=== PATIENT | female | born 1945 | race Caucasian/White ===

== ENCOUNTER → 2017-05-15 | Outpatient (CLI) | payer MEDICARE, OTHER ==
[2017-05-14 14:20] VITALS: BMI 33.9
--- NOTE | 2017-05-15 13:49 | P.HPIM ---
History of Present Illness H&P Date: 05/15/17 Chief Complaint: low back and bilateral leg pain This is a 71-year-old patient referred by Dr. Lakhani for chronic pain in low back with radiation to lateral legs down to ankle, worse on R side. Patient has been taking medications from primary care physician including Tylenol medications with some relief. Patient denies adverse drug effects from medications. Patient also denies new-onset weakness, bowel/bladder incontinence , or any other signs or symptoms of cauda equina syndrome. There are no signs of acute intoxication, and no indications of medication diversion or overuse. Patient notes that pain worsens significantly with walking, and improves with sitting, ice, and heat. Patient has used several types of medications for pain, including NSAIDS and BENZODIAZEPINES. Patient HAS NOT had surgery. Patient HAS had injections previously from Dr. Barba which helped with her pain (epidural injections). Patient HAS NOT had physical therapy recently. In addition to above, 13-point review of systems is also negative for chest pain , shortness of breath, changes in vision, changes in hearing, new onset weakness , abdominal pain, diarrhea, extreme fatigue, malaise, fever, skin changes, homicidal or suicidal ideation, or bowel or bladder incontinence. Vital Signs: Reviewed in EMR Gen: WDWN, AAOx3, NAD HEENT: NCAT, EOMI, hearing grossly normal Pulm: resp unlabored Abd: soft, NT, ND Neck: supple, trachea midline ROM in flexion lumbar spine: reduced with greater restriction ROM in extension lumbar spine: reduced Lumbar paravertebral tenderness: + Facet loading: + bilateral SI joint tenderness: + R side Abdiel's test: + R side Straight leg raise: + RLE at 10 degrees Neuro: CN II-XII grossly intact, muscle strength lower extremities PRESERVED Past Medical History Past Medical History: Osteoarthritis (OA) Additional Past Medical History / Comment(s): hx migraines, diverticulitis, IBS , hx kidney stones, justino cataracts with lens implants History of Any Multi-Drug Resistant Organisms: None Reported Past Surgical History: Adenoidectomy, Cholecystectomy, Hernia Repair, Orthopedic Surgery, Tonsillectomy Additional Past Surgical History / Comment(s): justino knee surgery Past Anesthesia/Blood Transfusion Reactions: Previous Problems w/ Anesthesia, Motion Sickness Additional Past Anesthesia/Blood Transfusion Reaction / Comment(s): "could not wake me up". adopted-no family hx Smoking Status: Former smoker - Past Family History Mother Family Medical History: Unable to Obtain Medications and Allergies Home Medications Medication Instructions Recorded Confirmed Type Cholecalciferol [Vitamin D3] 5,000 unit PO DAILY 05/14/17 05/14/17 History Cholestyramine/Aspartame 4 gm PO DAILY 05/14/17 05/14/17 History [Cholestyramine Light Packet] Krill Oil 500 mg PO DAILY 05/14/17 05/14/17 History Nabumetone [Relafen] 500 mg PO BID 05/14/17 05/14/17 History Allergies Allergy/AdvReac Type Severity Reaction Status Date / Time quinapril [From Accupril] Allergy throat Verified 05/14/17 14:03 swelled rofecoxib [From Vioxx] Allergy kidneys Verified 05/14/17 14:04 shut down Sulfa (Sulfonamide Allergy Rash/Hives Verified 05/14/17 14:03 Antibiotics) Results Comments: MRI lumbar spine without contrast dated 05/15/2016 demonstrates at the L2-L3 level there is mild disc bulging and mild posterior facet arthropathy with mild bilateral foraminal stenosis without substantial spinal canal stenosis. At the L3-L4 level there is mild disc bulging mild posterior facet arthropathy with mild to moderate bilateral foraminal stenosis. The L4-L5 level, there is uncovering of a minimal central right disc protrusion with annular tear mild disc bulging with moderate posterior facet arthropathy. There is mild to moderate foraminal stenosis. At L5-S1 level there is a minimal central annular tear with mild to moderate posterior facet hypertrophy. There is no spinal stenosis. Assessment and Plan (1) Lumbar disc herniation Status: Acute (2) Neural foraminal stenosis of lumbar spine Status: Acute (3) Chronic pain syndrome Status: Acute Plan: 1. Explanation: Opioid and psychological risk scores were reviewed. Diagnoses , prognoses, and multiple treatment options including but not limited to physical therapy, interventional therapies, adjuvant medical therapies, narcotic medication therapies, and surgery were discussed with the patient and all questions were answered to the patient's satisfaction. 2. Opioid agreement: no opioids prescribed today 3. Counseling: The patient was counseled extensively on BODY MASS INDEX, EXERCISE. Specifically, the patient was instructed regarding the importance of smoking cessation, weight control, and exercise in the context of both chronic pain and overall health. 4. Procedures: LESI series 5. Consultations: none 6. Investigations: none 7. Medications: none prescribed 8. Disposition: f/u for procedure as scheduled PQRS measures: 1-Patient's medications are documented in the chart. 2-Tobacco use is negative 3-Patient has not had a pneumococcal vaccine. 4-Advanced care planning discussed, patient unable to give. 5-Opioid contract NOT signed with the patient. 6-Pain positive, follow-up visit or procedure scheduled 7-Patient's blood pressure measured and documented, and patient will follow up with the primary care due to hypertension. 8-Patient's weight was measured, and body mass index ABOVE the normal limits, and counseling was done. Patient instructed to follow up with PCP. 9-Patient WAS NOT identified as an unhealthy alcohol user. Time with Patient: Greater than 30
== END | disposition home or self-care (01) ==
LOC: PNWHC3 13:02
PROVIDERS: ATTEND Anesthesiology
DX: M99.73 Connective tissue and disc stenosis of intervertebral foramina of lumbar region (principal); M51.26 Other intervertebral disc displacement, lumbar region; M19.90 Unspecified osteoarthritis, unspecified site; G89.4 Chronic pain syndrome; Z87.891 Personal history of nicotine dependence; Z79.899 Other long term (current) drug therapy; Z79.1 Long term (current) use of non-steroidal anti-inflammatories (NSAID); Z88.2 Allergy status to sulfonamides; Z88.8 Allergy status to other drugs, medicaments and biological substances
CPT/HCPCS: 99211

== ENCOUNTER → 2017-06-07 | Outpatient (CLI) | payer MEDICARE, OTHER ==
--- NOTE | 2017-06-07 14:02 | US ---
EXAMINATION TYPE: US venous doppler duplex LE LT DATE OF EXAM: 06/07/2017 1:34 PM COMPARISON: NONE CLINICAL HISTORY: 71-year-old female LLE R60.0 Edema, M79.662 leg pain. Pain and swelling with skin r edness superficial varicose veins above knee to lower calf left leg and right medial calf for short s egment. SIDE PERFORMED: Left, Limited right. TECHNIQUE: The lower extremity deep venous system is examined utilizing real time linear array sonog cortney with graded compression, doppler sonography and color-flow sonography. FINDINGS: VESSELS IMAGED: Common Femoral Vein Deep Femoral Vein Greater Saphenous Vein * Femoral Vein Popliteal Vein Small Saphenous Vein * Proximal Calf Veins (* superficial vessels) Left Leg: Negative for DVT. However, the exam is positive for Superficial Venous Thrombosis involving the greater saphenous vein from above the knee to lower mid calf. The thrombosed superficial vein is prominently ectatic. Right leg: Short segment of Superficial Venous Thrombosis is also noted along the right medial calf at patient's additional site of pain and swelling a varicosity. IMPRESSION: 1. No evidence for DVT within the left lower extremity imaged from the groin to the proximal calf. 2. However, the exam is positive for SVT involving the greater saphenous vein from above the knee to the mid calf 3. Limited scanning of the medial right calf at the site of patient pain shows additional SVT of a va ricosity.
== END | disposition home or self-care (01) ==
LOC: RADUSWWP 12:53
PROVIDERS: ATTEND Family Medicine
DX: I47.1 Supraventricular tachycardia (principal); I87.8 Other specified disorders of veins; M79.662 Pain in left lower leg; R60.0 Localized edema

== ENCOUNTER 2017-06-13 07:32 | Day surgery (SDC) | payer MEDICARE, OTHER ==
[2017-06-08 12:51] VITALS: BMI 33.9
[~2017-06-13 07:32] MED LIST: LACTATED RINGERS 1,000 ML IV SCH
[2017-06-13 08:02] VITALS: TEMP 96.6
[2017-06-13] MEDS ORDERED: LIDOCAINE 1% 20 ML VIAL (10MG/ML) FOR IV START INTRADERMA ONE (08:09)
--- NOTE | 2017-06-13 09:04 | P.PCN ---
Date of Procedure: 06/13/17 Procedure(s) Performed: PREOPERATIVE DIAGNOSIS: 1- Lumbar Degenerative Disc Diseases 2-Lumbar radiculopathy POSTOPERATIVE DIAGNOSIS: 1-Lumber Degenerative Disc Diseases 2-Lumbar radiculopathy PROCEDURE 1. Lumbar epidural steroid injection under fluoroscopic guidance at the L4-5 level. 2. Lumbar epidurogram. ANESTHESIA: Local with 1% lidocaine 3 ml and IV sedation with Versed 2 mg , and fentanyle 100 Mcg EBL: Minimal PROCEDURE INDICATION: The patient with low back pain and radiculitis symptoms unresponsive to conservative treatment. Fluoroscopy was used to optimize visualization of the needle placement and to maximize safety. PROCEDURE DESCRIPTION / TECHNIQUE: The patient was seen and identified in the preoperative area. Risks, benefits , complications including but not limited to infections ,bleeding ,allergic reaction to the medications ,nerve damage and not complete pain releife , and alternatives were discussed with the patient. The patient agreed to proceed with the procedure and signed the consent. IV was started, and vital signs were stable. Patient was taken to the OR and time out was completed. The patient was placed in the prone position on procedure table and a pillow was placed under the abdomen to reduce lumbar lordosis. The lumbosacral area was prepped and draped in the usual sterile fashion.ere closely monitored during the procedure. Conscious sedation was used during the procedure to decrease patients anxiety. Vital signs was monitered during the entire procedure. Using anterior-posterior fluoroscopy, the L5-S1 interlaminar space was identified and the skin over this site was marked and then infiltrated with 1% lidocaine subcutaneously. Subsequently, a 20-gauge Tuohy epidural needle was inserted and advanced toward the epidural space using the ``Loss of resistance technique and guided by AP and lateral fluoroscopy. The correct needle position in the epidural space was verified with the injection of 2 mL of the water soluble contrast dye Omnipaque 180 contrast and observing an excellent epidurogram with the epidural spread of the dye, after negative aspiration for blood and CSF and in the absence of paresthesias. Again after negative aspiration, a 6 ml mixture containing 20 mg of Dexamethasone and 2 ml of preservative free Normal Saline, and 2 ml of preservative free bupivacaine 0.5% solution was injected and a washout of epidurogram was seen. Needle was withdrawn intact, skin was cleansed, and bandages were applied. COMPLICATIONS: None DISPOSITION / PLANS: The patient was placed in a supine position and transferred to the recovery area in a stable condition for observation. There was no evidence of lower extremity motor or sensory deficit after the procedure. Patient was discharged from the recovery room after meeting discharge criteria. Home discharge instructions were given to the patient by the staff. The patient was reexamined prior to discharge. The patient will schedule a follow up in the clinic in 2-4 weeks.
[2017-06-13] MEDS ORDERED: IV FLUID CONTINUATION 1,000 ML IV ONE (09:12)
[2017-06-13 09:19] VITALS: RESP 16
[2017-06-13 09:49] VITALS: BP 170/90; PULSE 79
--- NOTE | 2017-06-13 12:14 | FL ---
Fluoroscopy HISTORY: Pain 2 seconds fluoroscopy time supplied to the referring clinician. 1 intraoperative C-arm image documen ts the procedure. See dictated report from anesthesia.
== END 2017-06-13 10:04 | disposition home or self-care (01) ==
LOC: ORPAIN 07:32
PROVIDERS: ATTEND Specialist
DX: M51.16 Intervertebral disc disorders with radiculopathy, lumbar region (principal); M47.26 Other spondylosis with radiculopathy, lumbar region; Z88.2 Allergy status to sulfonamides; Z88.8 Allergy status to other drugs, medicaments and biological substances
CPT/HCPCS: 62323; J2250; J1100; Q9965; J3010; 99152

== ENCOUNTER → 2017-07-10 | Outpatient (CLI) | payer MEDICARE, OTHER ==
[2017-07-10 14:14] VITALS: BP 159/88; PULSE 90; RESP 18
--- NOTE | 2017-07-10 14:37 | P.PN ---
Progress Note - Text Progress Note Date: 07/10/17 Patient returns for followup for chronic back pain with radiation to legs. Patient recently underwent LESI x 2, which provided excellent relief of the patient's right lower extremity pain although she is still having some back pain , 5/10 today. Approximately two weeks after the first procedure, patient developed severe thrombophlebitis over the bilateral lower extremities and was placed on Xarelto temporarily; she will be done with this tomorrow after 3 weeks ' course. She does have a history of varicose veins and is attributing this to greater activity secondary to having less overall pain. Patient continues on [place] medications for pain from PCP with good relief. Patient denies adverse drug effects from medications. Today, pt denies new-onset weakness, bowel/ bladder incontinence, or any other signs or symptoms of cauda equina syndrome. There are no signs of acute intoxication, and no indications of medication diversion or overuse. In addition to above, 13-point review of systems is also negative for chest pain , shortness of breath, changes in vision, changes in hearing, new onset weakness , abdominal pain, diarrhea, extreme fatigue, malaise, fever, skin changes, homicidal or suicidal ideation, or bowel or bladder incontinence. Vital Signs: Reviewed in EMR Gen: WDWN, AAOx3, NAD HEENT: NCAT, EOMI, hearing grossly normal Pulm: resp unlabored Abd: soft, NT, ND Neck: supple, trachea midline ROM in flexion lumbar spine: reduced with greater restriction ROM in extension lumbar spine: reduced Lumbar paravertebral tenderness: + Facet loading: + bilateral SI joint tenderness: + R side Abdiel's test: + R side Lower extremities in compression stockings, not examined Imaging: Reviewed in EMR Assessment: 1. lumbar radic 2. lumbar spondylosis 3. chronic pain syndrome Plan: 1. Explanation: Opioid and psychological risk scores were reviewed. Diagnoses , prognoses, and multiple treatment options including but not limited to physical therapy, interventional therapies, adjuvant medical therapies, narcotic medication therapies, and surgery were discussed with the patient and all questions were answered to the patient's satisfaction. 2. Opioid agreement: Patient has previously signed narcotic agreement, and was orally counseled to not overuse, abuse, divert, or cell medications, and to take them as prescribed by only 1 healthcare provider. The patient was also counseled to store opioid medications in a safe and preferably locked location. Patient was also counseled against driving or operating heavy equipment while using narcotic medications and also to not use alcohol or any illicit or recreational drugs. The patient verbalized understanding that lack of compliance with any of the above and likely result in failure to renew narcotic prescriptions, possible discharge from the clinic, and possible legal ramifications thereafter if indicated. 3. Counseling: The patient was counseled extensively on SMOKING CESSATION, BODY MASS INDEX, EXERCISE. Specifically, the patient was instructed regarding the importance of smoking cessation, weight control, and exercise in the context of both chronic pain and overall health. 4. Procedures: none for now 5. Consultations: None 6. Investigations: None 7. Medications: none prescribed 8. Disposition: f/u for re-eval in 4 weeks PQRS measures: 1-Patient's medications are documented in the chart. 2-Tobacco use is negative 3-Patient has not had a pneumococcal vaccine. 4-Advanced care planning discussed, patient unable to give. 5-Opioid contract NOT signed with the patient. 6-Pain positive, follow-up visit or procedure scheduled 7-Patient's blood pressure measured and documented, and patient will follow up with the primary care due to hypertension. 8-Patient's weight was measured, and body mass index ABOVE the normal limits, and counseling was done. Patient instructed to follow up with PCP. 9-Patient WAS NOT identified as an unhealthy alcohol user.
== END | disposition home or self-care (01) ==
LOC: PNWHC3 13:49
PROVIDERS: ATTEND Anesthesiology
DX: M47.816 Spondylosis without myelopathy or radiculopathy, lumbar region (principal); G89.4 Chronic pain syndrome
CPT/HCPCS: 99211

== ENCOUNTER → 2017-10-02 | Outpatient (CLI) | payer MEDICARE, OTHER ==
[2017-10-02 13:46] VITALS: BP 131/86; PULSE 86; RESP 18
--- NOTE | 2017-10-02 14:22 | P.PN ---
Progress Note - Text Progress Note Date: 10/02/17 Patient returns for followup for chronic back pain with radiation to legs. Patient previously underwent LESI x 2, which provided excellent relief of the patient's right lower extremity pain although she is still having some back pain , 3/10 today, that worsens with bending when she puts her compression hose on due to the DVTs in her legs. (Previously, approximately two weeks after the first procedure, patient developed severe thrombophlebitis over the bilateral lower extremities and was placed on Xarelto temporarily; this did not worsen after the second procedure, and has now improved significantly and she is now only taking aspirin and wearing compression stockings). Patient continues on [place] medications for pain from PCP with good relief. Patient denies adverse drug effects from medications. Today, pt denies new-onset weakness, bowel/ bladder incontinence, or any other signs or symptoms of cauda equina syndrome. There are no signs of acute intoxication, and no indications of medication diversion or overuse. In addition to above, 13-point review of systems is also negative for chest pain , shortness of breath, changes in vision, changes in hearing, new onset weakness , abdominal pain, diarrhea, extreme fatigue, malaise, fever, skin changes, homicidal or suicidal ideation, or bowel or bladder incontinence. Vital Signs: Reviewed in EMR Gen: WDWN, AAOx3, NAD HEENT: NCAT, EOMI, hearing grossly normal Pulm: resp unlabored Abd: soft, NT, ND Neck: supple, trachea midline ROM in flexion lumbar spine: reduced ROM in extension lumbar spine: reduced Lumbar paravertebral tenderness: + Facet loading: + bilateral SI joint tenderness: + R side Abdiel's test: + R side > L side Lower extremities in compression stockings, not examined Imaging: Reviewed in EMR Assessment: 1. lumbar radiculitis 2. lumbar spondylosis 3. chronic pain syndrome Plan: 1. Explanation: Opioid and psychological risk scores were reviewed. Diagnoses , prognoses, and multiple treatment options including but not limited to physical therapy, interventional therapies, adjuvant medical therapies, narcotic medication therapies, and surgery were discussed with the patient and all questions were answered to the patient's satisfaction. 2. Opioid agreement: Patient has previously signed narcotic agreement, and was orally counseled to not overuse, abuse, divert, or cell medications, and to take them as prescribed by only 1 healthcare provider. The patient was also counseled to store opioid medications in a safe and preferably locked location. Patient was also counseled against driving or operating heavy equipment while using narcotic medications and also to not use alcohol or any illicit or recreational drugs. The patient verbalized understanding that lack of compliance with any of the above and likely result in failure to renew narcotic prescriptions, possible discharge from the clinic, and possible legal ramifications thereafter if indicated. 3. Counseling: The patient was counseled extensively on SMOKING CESSATION, BODY MASS INDEX, EXERCISE. Specifically, the patient was instructed regarding the importance of smoking cessation, weight control, and exercise in the context of both chronic pain and overall health. 4. Procedures: none for now 5. Consultations: physical therapy for another six weeks 6. Investigations: None 7. Medications: none prescribed 8. Disposition: f/u for re-eval in 8 weeks after PT as she still has DVTs although only anticoagulated with ASA. While I cannot be sure, I believe her thrombophlebitis may be secondary to the Kenalog used in the first LESI as it did not worsen after the second LESI (where Decadron was used). If her leg pain returns, we can consider pursuing further LESIs, but will likely use dexamethasone. PQRS measures: 1-Patient's medications are documented in the chart. 2-Tobacco use is negative 3-Patient has not had a pneumococcal vaccine. 4-Advanced care planning discussed, patient unable to give. 5-Opioid contract NOT signed with the patient. 6-Pain positive, follow-up visit or procedure scheduled 7-Patient's blood pressure measured and documented, and patient will follow up with the primary care due to hypertension. 8-Patient's weight was measured, and body mass index ABOVE the normal limits, and counseling was done. Patient instructed to follow up with PCP. 9-Patient WAS NOT identified as an unhealthy alcohol user.
== END | disposition home or self-care (01) ==
LOC: PNWHC3 13:18
PROVIDERS: ATTEND Anesthesiology
DX: G89.4 Chronic pain syndrome (principal); M54.9 Dorsalgia, unspecified; M47.26 Other spondylosis with radiculopathy, lumbar region; I82.409 Acute embolism and thrombosis of unspecified deep veins of unspecified lower extremity; Z79.891 Long term (current) use of opiate analgesic; Z79.82 Long term (current) use of aspirin
CPT/HCPCS: 99211

== ENCOUNTER → 2017-11-27 | Outpatient (CLI) | payer MEDICARE, OTHER ==
[2017-11-27 12:49] VITALS: BP 172/85; PULSE 80; RESP 18; TEMP 98.6
--- NOTE | 2017-11-27 13:07 | P.PN ---
Progress Note - Text Progress Note Date: 11/27/17 Patient returns for followup for chronic back pain with radiation to legs. Patient previously underwent LESI x 2, which provided excellent relief of the patient's right lower extremity pain although she is still having some back pain , 6/10 today and she has had to use [place] recently (which she rarely does). Previously, approximately two weeks after the first procedure, patient developed severe thrombophlebitis over the bilateral lower extremities and was placed on Xarelto temporarily; this did not worsen after the second procedure, and has now improved significantly and she is now only taking aspirin and wearing compression stockings). Patient continues on [place] medications for pain from PCP with good relief. Patient denies adverse drug effects from medications. Today, pt denies new-onset weakness, bowel/bladder incontinence, or any other signs or symptoms of cauda equina syndrome. There are no signs of acute intoxication, and no indications of medication diversion or overuse. In addition to above, 13-point review of systems is also negative for chest pain , shortness of breath, changes in vision, changes in hearing, new onset weakness , abdominal pain, diarrhea, extreme fatigue, malaise, fever, skin changes, homicidal or suicidal ideation, or bowel or bladder incontinence. Vital Signs: Reviewed in EMR Gen: WDWN, AAOx3, NAD HEENT: NCAT, EOMI, hearing grossly normal Pulm: resp unlabored Abd: soft, NT, ND Neck: supple, trachea midline ROM in flexion lumbar spine: reduced ROM in extension lumbar spine: reduced Lumbar paravertebral tenderness: + Facet loading: + bilateral SI joint tenderness: + R side Abdiel's test: + R side > L side Lower extremities in compression stockings, not examined Imaging: Reviewed in EMR Assessment: 1. lumbar radiculitis 2. lumbar spondylosis 3. chronic pain syndrome Plan: 1. Explanation: Opioid and psychological risk scores were reviewed. Diagnoses , prognoses, and multiple treatment options including but not limited to physical therapy, interventional therapies, adjuvant medical therapies, narcotic medication therapies, and surgery were discussed with the patient and all questions were answered to the patient's satisfaction. 2. Opioid agreement: Patient has previously signed narcotic agreement, and was orally counseled to not overuse, abuse, divert, or cell medications, and to take them as prescribed by only 1 healthcare provider. The patient was also counseled to store opioid medications in a safe and preferably locked location. Patient was also counseled against driving or operating heavy equipment while using narcotic medications and also to not use alcohol or any illicit or recreational drugs. The patient verbalized understanding that lack of compliance with any of the above and likely result in failure to renew narcotic prescriptions, possible discharge from the clinic, and possible legal ramifications thereafter if indicated. 3. Counseling: The patient was counseled extensively on SMOKING CESSATION, BODY MASS INDEX, EXERCISE. Specifically, the patient was instructed regarding the importance of smoking cessation, weight control, and exercise in the context of both chronic pain and overall health. 4. Procedures: LESI series (will use dexamethasone as it did not give her problems) 5. Consultations: none 6. Investigations: None 7. Medications: none prescribed 8. Disposition: f/u for re-eval in 8 weeks after PT as she still has DVTs although only anticoagulated with ASA. While I cannot be sure, I believe her thrombophlebitis may be secondary to the Kenalog used in the first LESI as it did not worsen after the second LESI (where Decadron was used). Next LESI will be with Decadron. PQRS measures: 1-Patient's medications are documented in the chart. 2-Tobacco use is negative 3-Patient has not had a pneumococcal vaccine. 4-Advanced care planning discussed, patient unable to give. 5-Opioid contract NOT signed with the patient. 6-Pain positive, follow-up visit or procedure scheduled 7-Patient's blood pressure measured and documented, and patient will follow up with the primary care due to hypertension. 8-Patient's weight was measured, and body mass index ABOVE the normal limits, and counseling was done. Patient instructed to follow up with PCP. 9-Patient WAS NOT identified as an unhealthy alcohol user.
== END | disposition home or self-care (01) ==
LOC: PNWHC3 12:25
PROVIDERS: ATTEND Anesthesiology
DX: G89.4 Chronic pain syndrome (principal); M47.26 Other spondylosis with radiculopathy, lumbar region; Z79.891 Long term (current) use of opiate analgesic
CPT/HCPCS: 99211

== ENCOUNTER 2017-12-06 06:17 | Day surgery (SDC) | payer MEDICARE, OTHER ==
[2017-11-29 10:15] VITALS: BMI 33.9
[2017-12-06 06:43] VITALS: TEMP 97.7
[2017-12-06] MEDS ORDERED: LIDOCAINE 1% 20 ML VIAL (10MG/ML) FOR IV START INTRADERMA ONE (06:49)
--- NOTE | 2017-12-06 07:21 | P.PCN ---
Date of Procedure: 12/06/17 Procedure(s) Performed: PREOPERATIVE DIAGNOSIS: 1- Lumbar Degenerative Disc Diseases 2-Lumbar radiculopathy POSTOPERATIVE DIAGNOSIS: 1-Lumber Degenerative Disc Diseases 2-Lumbar radiculopathy PROCEDURE 1. Lumbar epidural steroid injection under fluoroscopic guidance at the L4-5 level. 2. Lumbar epidurogram. ANESTHESIA: Local with 1% lidocaine 3 ml and , moderate sedation with intravenous Versed 2 mg ,and fentanyle 50 Mcg EBL: Minimal PROCEDURE INDICATION: The patient with low back pain and radiculitis symptoms unresponsive to conservative treatment. Fluoroscopy was used to optimize visualization of the needle placement and to maximize safety. PROCEDURE DESCRIPTION / TECHNIQUE: The patient was seen and identified in the preoperative area. Risks, benefits , complications including but not limited to infections ,bleeding ,allergic reaction to the medications ,nerve damage and not complete pain releife , and alternatives were discussed with the patient. The patient agreed to proceed with the procedure and signed the consent. IV was started, and vital signs were stable. Patient was taken to the OR and time out was completed. The patient was placed in the prone position on procedure table and a pillow was placed under the abdomen to reduce lumbar lordosis. The lumbosacral area was prepped and draped in the usual sterile fashion.ere closely monitored during the procedure. Conscious sedation was used during the procedure to decrease patients anxiety. Vital signs was monitered during the entire procedure. Using anterior-posterior fluoroscopy, the L4-5 interlaminar space was identified and the skin over this site was marked and then infiltrated with 1% lidocaine subcutaneously. Subsequently, a 20-gauge Tuohy epidural needle was inserted and advanced toward the epidural space using the ``Loss of resistance technique and guided by AP and lateral fluoroscopy. The correct needle position in the epidural space was verified with the injection of 2 mL of the water soluble contrast dye Isovue 200 contrast and observing an excellent epidurogram with the epidural spread of the dye, after negative aspiration for blood and CSF and in the absence of paresthesias. Again after negative aspiration, a 6 ml mixture containing 20 mg of Dexamethasone and 2 ml of preservative free Normal Saline, and 2 ml of preservative free lidocaine 1% solution was injected and a washout of epidurogram was seen. Needle was withdrawn intact, skin was cleansed, and bandages were applied. COMPLICATIONS: None DISPOSITION / PLANS: The patient was placed in a supine position and transferred to the recovery area in a stable condition for observation. There was no evidence of lower extremity motor or sensory deficit after the procedure. Patient was discharged from the recovery room after meeting discharge criteria. Home discharge instructions were given to the patient by the staff. The patient was reexamined prior to discharge. The patient will schedule a follow up in the clinic in 2-4 weeks.
[2017-12-06] MEDS ORDERED: IV FLUID CONTINUATION 1,000 ML IV ONE (07:27)
[2017-12-06 07:30] VITALS: RESP 16
[2017-12-06 07:56] VITALS: BP 151/66; PULSE 76
--- NOTE | 2017-12-06 09:44 | FL ---
EXAMINATION TYPE: FL guided pain mgmt statistic DATE OF EXAM: 12/06/2017 HISTORY: Flouroscopy time 2 seconds of fluoroscopy provided. IMPRESSION: 1. Fluoroscopy time.
== END 2017-12-06 08:22 | disposition home or self-care (01) ==
LOC: ORPAIN 06:17
PROVIDERS: ATTEND Specialist
DX: M51.16 Intervertebral disc disorders with radiculopathy, lumbar region (principal); Z88.2 Allergy status to sulfonamides; Z88.8 Allergy status to other drugs, medicaments and biological substances
CPT/HCPCS: 62323; J2250; J1100; J3010; Q9966

== ENCOUNTER 2018-01-08 06:11 | Day surgery (SDC) | payer MEDICARE, OTHER ==
[2018-01-07 08:48] VITALS: BMI 33.9
[2018-01-08 06:29] VITALS: TEMP 97.8
[2018-01-08] MEDS ORDERED: LACTATED RINGERS 1,000 ML IV ONE ×2 (06:41)
[2018-01-08] MEDS ORDERED: LIDOCAINE 1% 20 ML VIAL (10MG/ML) FOR IV START INTRADERMA ONE (06:42)
[2018-01-08] MEDS ORDERED: LACTATED RINGERS 1,000 ML IV SCH (07:15)
[2018-01-08] MEDS ORDERED: IV FLUID CONTINUATION 1,000 ML IV ONE ×2 (07:47→07:50)
--- NOTE | 2018-01-08 08:01 | P.PCN ---
Date of Procedure: 01/08/18 Surgeon: Mawxell Phelan Pathology: none sent Condition: stable Disposition: PACU Description of Procedure: PREOPERATIVE DIAGNOSIS: 1-Lumbar radiculitis. POSTOPERATIVE DIAGNOSIS: 1-Lumbar radiculitis. PROCEDURE 1. Lumbar epidural steroid injection under fluoroscopic guidance at the L4-L5 level. 2. Lumbar epidurogram. ANESTHESIA: Local with 1% lidocaine; IV sedation with Versed/fentanyl. EBL: Minimal PROCEDURE INDICATION: The patient with low back pain and radiculitis symptoms unresponsive to conservative treatment, presents for LESI #2 in series today. Fluoroscopy was used to optimize visualization of the needle placement and to maximize safety. No use of blood thinners. PROCEDURE DESCRIPTION / TECHNIQUE: The patient was seen and identified in the preoperative area. Risks, benefits, complications, and alternatives were discussed with the patient, including but not limited to bleeding, infection, nerve damage, allergic reactions to medications, and incomplete pain relief. The patient agreed to proceed with the procedure and signed the consent after all questions were answered. IV was started, and vital signs were stable. Patient was taken to the OR and time out was completed to confirm patient position, procedure, laterality of pain, and allergies. The patient was placed in the prone position on procedure table and a pillow was placed under the abdomen to reduce lumbar lordosis. The lumbosacral area was prepped and draped in the usual sterile fashion. Critical pause was taken. Vital signs were closely monitored during the procedure. Conscious sedation was used during the procedure to decrease patients anxiety. Using anterior-posterior fluoroscopy, the L4-L5 interlaminar space was identified and the skin over this site was marked and then infiltrated with 1% lidocaine subcutaneously. Subsequently, a 20-gauge 3.5-inch Tuohy epidural needle was inserted and advanced toward the epidural space using the Loss of resistance technique and guided by AP and lateral fluoroscopy. The correct needle position in the epidural space was verified with the injection of 2 mL of the water soluble contrast dye Isovue 200 contrast and observing an excellent epidurogram with the epidural spread of the dye, after negative aspiration for blood and CSF and in the absence of paresthesias. Again after negative aspiration, a 6 ml mixture containing 20 mg of PF Decadron and 2 ml of preservative free Normal Saline, and 2 ml of preservative free lidocaine 1% solution was injected and a washout of epidurogram was seen. Needle was withdrawn intact, skin was cleansed, and bandages were applied. COMPLICATIONS: None COMMENTS: DISPOSITION / PLANS: The patient was placed in a supine position and transferred to the recovery area in a stable condition for observation. There was no evidence of lower extremity motor or sensory deficit after the procedure. Patient was discharged from the recovery room after meeting discharge criteria. Home discharge instructions were given to the patient by the staff. The patient was reexamined prior to discharge and there were no issues. The patient will schedule a third LESI in 4-6 weeks.
--- NOTE | 2018-01-08 08:34 | FL ---
EXAMINATION TYPE: FL guided pain mgmt statistic DATE OF EXAM: 01/08/2018 HISTORY: Flouroscopy time 13 seconds of fluoroscopy provided. IMPRESSION: 1. Fluoroscopy time.
[2018-01-08 08:41] VITALS: RESP 20
[2018-01-08 08:44] VITALS: BP 147/86; PULSE 73
== END 2018-01-08 07:56 | disposition home or self-care (01) ==
LOC: ORPAIN 06:11
PROVIDERS: ATTEND Anesthesiology
DX: M54.16 Radiculopathy, lumbar region (principal); I10 Essential (primary) hypertension; E78.5 Hyperlipidemia, unspecified; Z79.82 Long term (current) use of aspirin; Z79.891 Long term (current) use of opiate analgesic; Z79.899 Other long term (current) drug therapy; Z88.6 Allergy status to analgesic agent; Z88.2 Allergy status to sulfonamides; Z88.8 Allergy status to other drugs, medicaments and biological substances
CPT/HCPCS: 62323; J2250; J1100; J3010; Q9966

== ENCOUNTER 2018-02-04 06:23 | Day surgery (SDC) | payer MEDICARE, OTHER ==
[2018-01-30 10:53] VITALS: BMI 33.9
[2018-02-04 07:32] VITALS: TEMP 98
--- NOTE | 2018-02-04 07:49 | P.PCN ---
Date of Procedure: 02/04/18 Procedure(s) Performed: PREOPERATIVE DIAGNOSIS: 1- Lumbar Degenerative Disc Diseases 2-Lumbar radiculopathy. POSTOPERATIVE DIAGNOSIS: 1-Lumber Degenerative Disc Diseases 2-Lumbar radiculopathy. PROCEDURE 1. Lumbar epidural steroid injection under fluoroscopic guidance at the L4-5 level. 2. Lumbar epidurogram. ANESTHESIA: Local with 1% lidocaine 3 ml and , moderate sedation with intravenous Versed 2 mg ,and fentanyle 50 Mcg EBL: Minimal PROCEDURE INDICATION: The patient with low back pain and radiculitis symptoms unresponsive to conservative treatment. Fluoroscopy was used to optimize visualization of the needle placement and to maximize safety. PROCEDURE DESCRIPTION / TECHNIQUE: The patient was seen and identified in the preoperative area. Risks, benefits , complications including but not limited to infections ,bleeding ,allergic reaction to the medications ,nerve damage and not complete pain releife , and alternatives were discussed with the patient. The patient agreed to proceed with the procedure and signed the consent. IV was started, and vital signs were stable. Patient was taken to the OR and time out was completed. The patient was placed in the prone position on procedure table and a pillow was placed under the abdomen to reduce lumbar lordosis. The lumbosacral area was prepped and draped in the usual sterile fashion.ere closely monitored during the procedure. Conscious sedation was used during the procedure to decrease patients anxiety. Vital signs was monitered during the entire procedure. Using anterior-posterior fluoroscopy, the L4-5 interlaminar space was identified and the skin over this site was marked and then infiltrated with 1% lidocaine subcutaneously. Subsequently, a 20-gauge Tuohy epidural needle was inserted and advanced toward the epidural space using the ``Loss of resistance technique and guided by AP and lateral fluoroscopy. The correct needle position in the epidural space was verified with the injection of 2 mL of the water soluble contrast dye Isovue 200 contrast and observing an excellent epidurogram with the epidural spread of the dye, after negative aspiration for blood and CSF and in the absence of paresthesias. Again after negative aspiration, a 6 ml mixture containing 80 mg of Depomedrol and 2 ml of preservative free Normal Saline, and 2 ml of preservative free lidocaine 1% solution was injected and a washout of epidurogram was seen. Needle was withdrawn intact, skin was cleansed, and bandages were applied. COMPLICATIONS: None DISPOSITION / PLANS: The patient was placed in a supine position and transferred to the recovery area in a stable condition for observation. There was no evidence of lower extremity motor or sensory deficit after the procedure. Patient was discharged from the recovery room after meeting discharge criteria. Home discharge instructions were given to the patient by the staff. The patient was reexamined prior to discharge. The patient will schedule a follow up in the clinic in 2-4 weeks.
[2018-02-04] MEDS ORDERED: IV FLUID CONTINUATION 800 ML IV ONE (07:56)
[2018-02-04 08:05] VITALS: RESP 18
[2018-02-04 08:26] VITALS: BP 132/74; PULSE 65
--- NOTE | 2018-02-04 08:29 | FL ---
Fluoroscopy HISTORY: Pain 3 seconds fluoroscopy time supplied to the referring clinician. 1 intraoperative C-arm images docume nt the procedure. See dictated report from anesthesia.
== END 2018-02-04 08:32 | disposition home or self-care (01) ==
LOC: ORPAIN 06:23
PROVIDERS: ATTEND Specialist
DX: M51.16 Intervertebral disc disorders with radiculopathy, lumbar region (principal); Z88.2 Allergy status to sulfonamides; Z88.8 Allergy status to other drugs, medicaments and biological substances
CPT/HCPCS: 62323; J2250; J1030; J3010; Q9966

== ENCOUNTER → 2018-02-28 | Outpatient (CLI) | payer MEDICARE, OTHER ==
--- NOTE | 2018-02-28 13:00 | P.PN ---
Subjective Progress Note Date: 02/28/18 Principal diagnosis: Low back pain This is a 72-year-old female with history of chronic lower back pain with radiation to the lower extremities. The patient had a series of 3 epidural steroid injection recently and she feels much better after these injections. She denies any bowel or bladder dysfunction or any weakness in the lower extremities. Objective - Vital Signs Vital signs: Intake & Output 02/27/18 02/28/18 02/28/18 18:59 06:59 18:59 Weight 95.254 kg - Constitutional General appearance: Present: obese - EENT Eyes: Present: PERRLA - Respiratory Respiratory: bilateral: CTA - Cardiovascular Rhythm: regular Heart sounds: normal: S1, S2 - Neurologic Neurologic: Present: CNII-XII intact - Psychiatric Psychiatric: Present: A&O x's 3, appropriate affect, intact judgment & insight - Additional findings Additional findings: Neuro exam of the lower extremities showed normal and symmetrical muscle strength and normal and symmetrical deep Tendon reflexes. Assessment and Plan Plan: This is a 72-year-old female was doing well after a series of lumbar epidural steroid injection. The patient is not getting any prescriptions for opioids from our clinic. The patient will be seen on an as-needed basis.
[2018-02-28 13:02] VITALS: BP 166/79; PULSE 77; RESP 16
== END | disposition home or self-care (01) ==
LOC: PNWHC3 12:34
PROVIDERS: ATTEND Anesthesiology
DX: G89.29 Other chronic pain (principal); M54.5 Low back pain
CPT/HCPCS: 99211

== ENCOUNTER → 2018-04-25 | Outpatient (CLI) | payer MEDICARE, OTHER ==
--- NOTE | 2018-04-25 16:00 | XR ---
EXAMINATION TYPE: XR thoracic spine complete DATE OF EXAM: 04/25/2018 COMPARISON: NONE HISTORY: Pain Alignment is anatomic. There is no compression deformities. Hypertrophic and degenerative disc disea se at all levels. Surgical the upper abdomen noted. IMPRESSION: 1. Multilevel hypertrophic and multilevel moderate to severe degenerative disc disease. Correlate wit h MRI as clinically warranted. 2. There is prominence of the hilum and suspected ectasia of the aorta. Correlate with CT scan chest to assess for aneurysm.
== END | disposition home or self-care (01) ==
LOC: RADXRYALE 15:22
PROVIDERS: ATTEND Family Medicine
DX: M51.34 Other intervertebral disc degeneration, thoracic region (principal)
CPT/HCPCS: 72072

== ENCOUNTER → 2018-04-29 | Outpatient (CLI) | payer MEDICARE, OTHER ==
--- NOTE | 2018-05-01 09:44 | MM ---
Reason for exam: screening (asymptomatic). Last mammogram was performed 2 years and 9 months ago. History: Patient is postmenopausal and history of other cancer. Took estrogen for 1 year 2 months. Took progesterone for 1 year 2 months. Physical Findings: A clinical breast exam by your physician is recommended on an annual basis and results should be correlated with mammographic findings. MG 3D Screening Mammo W/Cad Bilateral CC and MLO view(s) were taken. Prior study comparison: August 13, 2015, bilateral MG screening mammo w CAD. July 20, 2014, bilateral MG screening mammo w CAD. There are scattered fibroglandular densities. There is chronic nodularity in the left breast. No significant changes when compared with prior studies. ASSESSMENT: Negative, BI-RAD 1 RECOMMENDATION: Routine screening mammogram of both breasts in 1 year. Manage on a clinical basis with regard to left breast axillary pain.
== END | disposition home or self-care (01) ==
LOC: RADMAMWWP 07:27
PROVIDERS: ATTEND Family Medicine
DX: Z12.31 Encounter for screening mammogram for malignant neoplasm of breast (principal)
CPT/HCPCS: 77063; 77067

== ENCOUNTER → 2018-08-29 | Outpatient (CLI) | payer MEDICARE, OTHER ==
--- NOTE | 2018-08-29 10:21 | MR ---
EXAMINATION TYPE: MR lumbar spine wo con DATE OF EXAM: 08/29/2018 COMPARISON: Outside MRI lumbar spine report May 15, 2016 HISTORY: Disc Degeneration / Lumbago TECHNIQUE: Multiplanar, multisequence imaging of the lumbar spine is performed without IV contrast. FINDINGS: There is redemonstration of minor to minimal anterior wedging of the T12 vertebra. Vertebra l body heights in the lumbar spine are maintained. Schmorl node superior L3 endplate is noted sagitta l image 6. There remains minimal subtle grade 1 anterolisthesis of L4 on L5 described on prior report . Multilevel disc desiccation is present with mild to moderate multilevel disc space narrowing. No l arge posterior disc herniations are seen on sagittal images. The conus medullaris is normal in positi on and signal ending at inferior L1 level. Scattered smaller hemangiomas are seen including inferior L1 lesion sagittal image 7. Axial images at the T12-L1 level show tiny central disc protrusion mildly effacing anterior thecal sa c on axial image 28, bilateral neural foramina are patent. Axial images at the L1-L2 level show tiny right paracentral disc protrusion minimally effacing anteri or thecal sac on axial image 23, bilateral neural foramina are patent. Axial images at the L2-L3 level are felt within normal limits. Axial images at the L3-L4 level show broad-based posterior disc protrusion mildly effacing anterior t hecal sac with mild facet degenerative changes and ligament flavum hypertrophy effacing posterior lat eral thecal sac on axial image 13. There is mild bilateral anterior inferior neural foraminal narrowi ng noted. Axial images at the L4-L5 level show mild to moderate facet degenerative changes bilaterally effacing posterior lateral thecal sac on axial image 8. There is broad disc bulge with annular tear mildly ef facing anterior thecal sac. There is mild left greater than right bilateral anterior inferior neural foraminal narrowing. Axial images at L5-S1 level shows central disc protrusion with annular tear. There is mild facet dege nerative changes bilaterally. Spinal canal is preserved. Bilateral neural foramina are patent. No suspicious incidental retroperitoneal findings are seen. IMPRESSION: Multilevel degenerative changes in the lumbar spine as detailed above. No obvious progres lin from prior MRI report.
== END | disposition home or self-care (01) ==
LOC: RADMRIMAIN 06:15
PROVIDERS: ATTEND Family Medicine
DX: M47.26 Other spondylosis with radiculopathy, lumbar region (principal)
CPT/HCPCS: 72148

== ENCOUNTER → 2019-06-30 | Outpatient (CLI) | payer MEDICARE, OTHER ==
[2019-06-30 13:15] VITALS: BP 184/104; PULSE 73; RESP 16
--- NOTE | 2019-06-30 13:38 | P.PAINPG ---
Subjective Progress Note Date: 06/30/19 This is a follow-up visit for this 73 years old female with a chronic history of severe low back pain, patient diagnosed with lumbar radiculopathy and lumbar degenerative disc disease and lumbar spondylosis with facet arthropathy, last year we have done lumbar epidural steroid injections 3, and patient got excellent pain relief, and patient was instructed to follow up when necessary, patient reported that her pain in the low back area increased over the last few weeks and currently is in the low back area with radiation to the buttock and groin area, it does not radiated below the knee, she feels her lower extremity weak secondary to the intensity of the pain, she denies any fever or night sweats, she is currently on [employer] 10/325 which is helping to some degree, and she denies any side effects of the medication Objective - Vital Signs Vital signs: Vital Signs Temp Pulse 73 06/30/19 12:53 Resp 16 06/30/19 12:53 BP 184/104 06/30/19 12:53 Pulse Ox 99 06/30/19 12:53 - Exam Physical Examinations : -Constitutiona : Cooperative , not in acute distress . -HEENT : nech : supple , no Lymphadenopathy , normal thyroid size . eyes : no ptosis , no icterus, no photophobia . - neurologic : Cranial nerve II to XII intact , no focal neurological deffecit . -psychatric : alert , oriented X 3 , appropriate affect , intact judgment and insight . -Lymphatic : no Lymphadenopathy . - musculoskeltal : Lumber spine moter stegnth lower extremities ,thigh and legs 5/5 Right side , 5/5 Left side deep tendon reflexes : normal Knee Jerk , normal ankle Jerk positive lumber facet Loading Test Range of motion of the lumbar spine Flexion 30 degrees, extension 10 degrees strait leg raising test = negative bilaterally Fabere test = negative bilaterally Sever tenderness over the Sacroiliac joint on the R and L sides Gaenslen test positive bilaterally. Seated flexion test positive bilaterally. Assessment and Plan Plan: Assessment and plan= lumbar spondylosis and lumbar facet arthropathy lumber degenerative disc disease. Bilateral sacroiliitis. Currently most of the pain is coming from the sacroiliac joint etiology, patient could benefit from bilateral sacroiliac joint steroid injection Patient should continue to use her current medication Neurontin, and [employer] [place] and she is getting prescription refills from her primary care Time with Patient: Less than 30 PQRS Measure Charge Sheet Measure #130: Documentation of Current Meds in Medical Chart: Patient's medications documented in chart Measure #226: Tobacco Use: Screen & Cessation Intervention: Pt not a tobacco user Measure #111: Pneumonia Vaccination: Pneumococcal vaccine NOT administered or previously given Measure #47: Advance Care Plan: Advance care planning discussed & documented, pt chose/unable to give Measure #412: Opioid Treatment Agreement: No documentation of signed opioid treatment agreement Measure #408: Opioid Therapy Follow-up Evaluation: Patient had NO f/u eval minimum every 3 months during opioid therapy Measure #317: Preventitive Care & Scrn High Bld Press & F/U: Pre-hypertensive or hypertensive BP documented, pt will f/u with PCP Measure #128: Body Mass Index (BMI) Screening & Follow-up: BMI documented ABOVE normal parameters - f/u documented Measure #131: Pain Assessment & Follow-up: Pain positive & plan documented, Follow-up scheduled Measure #431: Unhealthy Alcohol Use Preventative Care & Scrn: Patient not identified as an unhealthy alcohol user PQRS Narrative: Smoking Status Former smoker Blood Pressure 184/104 Pain Intensity [Right Lower 2 Back] Pain Intensity [Left Lateral 7 Back] Scale Used Numeric (1 - 10) Hx Alcohol Use (MH) No Home Medications: Ambulatory Orders Cholecalciferol [Vitamin D3] 2,000 unit PO AC-LUNCH 05/14/17 Cholestyramine/Aspartame [Cholestyramine Light Packet] 4 gm PO DAILY 05/14/17 Krill Oil 500 mg PO AC-SUPPER 05/14/17 Nabumetone [Relafen] 500 mg PO TID 05/14/17 Aspirin 81 mg PO DAILY 01/07/18 Gabapentin [Gabapentin Oral Soln] 300 mg PO HS 06/24/19 Gabapentin [Neurontin] 100 mg PO TID-W/MEALS 06/24/19 HYDROcodone/APAP 10-325MG [[employer] 10-325] 1 tab PO BID PRN 06/30/19 Controlled Substance Measures - Controlled Substance Measures Is patient prescribed a controlled substance at discharge?: No
== END ==
LOC: PNWHC3 12:41
PROVIDERS: ATTEND Specialist
DX: M47.816 Spondylosis without myelopathy or radiculopathy, lumbar region (principal); M46.96 Unspecified inflammatory spondylopathy, lumbar region; M51.36 Other intervertebral disc degeneration, lumbar region; M46.1 Sacroiliitis, not elsewhere classified; Z79.899 Other long term (current) drug therapy; Z87.891 Personal history of nicotine dependence; Z79.82 Long term (current) use of aspirin; Z79.891 Long term (current) use of opiate analgesic
CPT/HCPCS: 99211

== ENCOUNTER 2019-07-01 08:14 | Day surgery (SDC) | payer MEDICARE, OTHER ==
[2019-07-01 09:15] VITALS: TEMP 98
[2019-07-01] MEDS ORDERED: LIDOCAINE 1% 20 ML VIAL (10MG/ML) FOR IV START INTRADERMA ONE (09:25)
--- NOTE | 2019-07-01 10:43 | P.PCN ---
Date of Procedure: 07/01/19 Procedure(s) Performed: Procedure= bilateral sacral iliac joints steroid injection under fluoroscopy guidance (fluoroscopy image stored on file in the radiology Department ) Preoperative diagnosis= 1-sacroiliitis 2-lumbar degenerative disc disease 3- lumbar spondylosis with lumbar facet arthropathy Postoperative diagnosis=1-sacroiliitis 2-lumbar degenerative disc disease 3- lumbar spondylosis with lumbar facet arthropathy Complication = none Condition= stable Anesthesia= moderate sedation with intravenous Versed 2 mg , and fentanyl 100 micrograms and local infiltration with lidocaine 1% 5 mL Indication for the procedure= patient complaining of low back pain , examination was positive for severe tenderness over the sacroiliac joints bilaterally and patient diagnosed with sacroiliitis, for this reason he/ she was good candidate for sacroiliac joint steroid injection. Description of the procedure= procedure risk and benefits discussed with the patient, including but not limited, risk of infection and bleeding, and ALLERGIC reaction to the medication and not complete pain relief and patient agreed with the preceding patient taken to the operating room, placed in prone position or standard monitors applied to the patient then after induction of anesthesia back prepped with chlorhexidine 3 times , Then under strict sterile technique, first I did the right sacroiliac joint the which was identified under fluoroscopy guidance been local infiltration of the skin and subcu interstitial with lidocaine 1% then 22-gauge Quincke Needle advanced slowly under fluoroscopy and placed in the right sacroiliac joint needle placement confirmed with AP and oblique and lateral view and after appropriate needle placement confirmed and after negative aspiration, or heme , then Ropivacaine 0.5% 3 mL, and 40 mg of Depo-Medrol mixed together and injected in the right sacroiliac joint after negative aspiration patient tolerated the procedure well without any complication. Then the left sacroiliac joint steroid injection done under strict sterile technique local infiltration of the skin and subcu interstitial at the location of the left sacroiliac joint then a 22-gauge Quincke Needle advanced slowly under fluoroscopy time placed in the left sacroiliac joint, needle placement confirmed with AP and oblique and lateral view then after appropriate needle placement confirmed and after negative aspiration 0.5% ropivacaine 3 mL and 40 mg of Depo-Medrol injected in the left sacroiliac joint after negative aspiration patient tolerated the procedure well that any complications and she will follow up in clinic 3 weeks
[2019-07-01 10:44] VITALS: PULSE 74
[2019-07-01 11:02] VITALS: BP 148/89; RESP 16
--- NOTE | 2019-07-01 11:25 | FL ---
EXAMINATION TYPE: FL guided pain mgmt statistic DATE OF EXAM: 07/01/2019 HISTORY: Flouroscopy time 22 seconds of fluoroscopy provided. IMPRESSION: 1. Fluoroscopy time.
== END 2019-07-01 11:12 | disposition home or self-care (01) ==
LOC: ORPAIN 08:14
PROVIDERS: ATTEND Specialist
DX: G89.29 Other chronic pain (principal); M46.1 Sacroiliitis, not elsewhere classified; M51.16 Intervertebral disc disorders with radiculopathy, lumbar region; M47.26 Other spondylosis with radiculopathy, lumbar region; R03.0 Elevated blood-pressure reading, without diagnosis of hypertension; Z79.899 Other long term (current) drug therapy; Z79.891 Long term (current) use of opiate analgesic; Z79.1 Long term (current) use of non-steroidal anti-inflammatories (NSAID); Z79.82 Long term (current) use of aspirin; Z87.891 Personal history of nicotine dependence; Z88.2 Allergy status to sulfonamides; Z88.6 Allergy status to analgesic agent; Z88.8 Allergy status to other drugs, medicaments and biological substances
CPT/HCPCS: J2250; J1030; J3010; G0260; 99152

== ENCOUNTER 2019-07-16 08:22 | Day surgery (SDC) | payer MEDICARE, OTHER ==
[2019-07-16 08:47] VITALS: TEMP 97.8
[2019-07-16] MEDS ORDERED: LACTATED RINGERS 1,000 ML IV ONE (08:47)
[2019-07-16] MEDS ORDERED: LIDOCAINE 1% 20 ML VIAL (10MG/ML) FOR IV START INTRADERMA ONE (08:50)
--- NOTE | 2019-07-16 09:57 | P.PCN ---
Date of Procedure: 07/16/19 Procedure(s) Performed: Procedure= bilateral sacroiliac joints steroid injection under fluoroscopy guidance (fluoroscopy image stored on file in the radiology Department ) Preoperative diagnosis= 1-sacroiliitis 2-lumbar degenerative disc disease 3- lumbar spondylosis with lumbar facet arthropathy Postoperative diagnosis=1-sacroiliitis 2-lumbar degenerative disc disease 3- lumbar spondylosis with lumbar facet arthropathy Complication = none Condition= stable Anesthesia= moderate sedation with intravenous Versed 2 mg , and fentanyl 50 micrograms and local infiltration with lidocaine 1% 4 mL Indication for the procedure= patient complaining of low back pain , examination was positive for severe tenderness over the sacroiliac joints bilaterally and patient diagnosed with sacroiliitis, for this reason he/ she was good candidate for sacroiliac joint steroid injection. Description of the procedure= procedure risk and benefits discussed with the patient, including but not limited, risk of infection and bleeding, and ALLERGIC reaction to the medication and not complete pain relief and patient agreed with the preceding patient taken to the operating room, placed in prone position or standard monitors applied to the patient then after induction of anesthesia back prepped with chlorhexidine 3 times , Then under strict sterile technique, first I did the right sacroiliac joint the which was identified under fluoroscopy guidance been local infiltration of the s kin and subcu interstitial with lidocaine 1% then 25-gauge Quincke Needle advanced slowly under fluoroscopy and placed in the right sacroiliac joint needle placement confirmed with AP and oblique and lateral view and after appropriate needle placement confirmed and after negative aspiration, or heme , then Ropivacaine 0.5% 3 mL, and 20 mg of Depo-Medrol mixed together and injected in the right sacroiliac joint after negative aspiration patient tolerated the procedure well without any complication. Then the left sacroiliac joint steroid injection done under strict sterile technique local infiltration of the skin and subcu interstitial at the location of the left sacroiliac joint then a 25-gauge Quincke Needle advanced slowly under fluoroscopy time placed in the left sacroiliac joint, needle placement confirmed with AP and oblique and lateral view then after appropriate needle placement confirmed and after negative aspiration 0.5% ropivacaine 3 mL and 20 mg of Depo-Medrol injected in the left sacroiliac joint after negative aspiration patient tolerated the procedure well that any complications and she will follow up in clinic 3 weeks
[2019-07-16] MEDS ORDERED: IV FLUID CONTINUATION 1,000 ML IV ONE (10:03)
[2019-07-16 10:05] VITALS: RESP 16
--- NOTE | 2019-07-16 10:17 | FL ---
EXAMINATION TYPE: FL guided pain mgmt statistic DATE OF EXAM: 07/16/2019 HISTORY: Flouroscopy time 8 seconds of fluoroscopy provided. IMPRESSION: 1. Fluoroscopy time.
[2019-07-16 10:43] VITALS: BP 153/78; PULSE 79
== END 2019-07-16 10:59 | disposition home or self-care (01) ==
LOC: ORPAIN 08:22
PROVIDERS: ATTEND Specialist
DX: M46.1 Sacroiliitis, not elsewhere classified (principal); M51.36 Other intervertebral disc degeneration, lumbar region; M47.896 Other spondylosis, lumbar region; Z88.2 Allergy status to sulfonamides; Z88.8 Allergy status to other drugs, medicaments and biological substances
CPT/HCPCS: J2250; J1030; J3010; G0260; 99152

== ENCOUNTER → 2019-07-30 | Outpatient (CLI) | payer MEDICARE, OTHER ==
[2019-07-30 13:20] VITALS: BP 139/89; PULSE 83; RESP 16
--- NOTE | 2019-08-01 12:45 | P.PAINPG ---
Subjective Progress Note Date: 07/30/19 This is a follow-up visit for this 74 year old female with a chronic history of severe low back pain, patient diagnosed with lumbar radiculopathy and lumbar degenerative disc disease and lumbar spondylosis with facet arthropathy, and SI joint dysfunction most recently we have done bilateral SI joint injections on 07/01/2019 and 07/16/2019. Patient reports excellent relief from this procedure, rated as 1/10, however over the last few days she has done a lot more at home including cleaning furniture and vacuuming. She feels that over the past week, her pain has gradually started to return, although it still remains better than prior to undergoing the injection. It is "crippling in the morning". It gets better throughout the day. Pain is primarily located in the left low back radiating to left buttocks. Pain is worse with activity, walking and better with positioning, heat, ice. Review of systems is negative for chest pain, shortness of breath, new onset weakness, numbness/tingling, abdominal pain, malaise, fever, night sweats, chills, homicidal or suicidal ideation, or bowel or bladder incontinence. Objective Physical exam: Vitals: Reviewed in EMR GENERAL: Well appearing, in no acute distress PSYCH: Mood and affect is appropriate. Awake, alert, and oriented SKIN: Skin color, texture, turgor normal, no rashes or lesions HEENT: Normocephalic, atraumatic. EOM intact CV: No pedal edema RESP: Respirations are unlabored, no audible wheezing GI: Abdomen non-distended MUSCULOSKELETAL: Bilateral lower extremity strength is normal and symmetric. No atrophy or tone abnormalities are noted. Lumbar spine: Straight leg raising in the sitting position is negative for radicular pain. No pain to palpation over the lumbar spine and paraspinous muscles. Buttocks: Tenderness to palpation over the left PSIS, Ashley's test is positive on the left side, sacral thrust positive for left-sided SI joint pain. Extremities: Peripheral joint ROM is full and pain free without obvious instability or laxity in all four extremities. No edema or skin discolorations noted. Gait: Gait is slow NEUR: Bilateral lower extremity coordination and muscle stretch reflexes are physiologic and symmetric. Negative clonus bilaterally. No loss of sensation is noted. Assessment and Plan Plan: Assessment and plan= lumbar spondylosis and lumbar facet arthropathy lumber degenerative disc disease. Bilateral sacroiliitis. She recently underwent bilateral SI joint injections with good benefit. She would like to proceed with radiofrequency ablation. We will schedule left-sided radiofrequency of the L5 dorsal ramus, S1, S2, S3 lateral branches. Prescription given for physical therapy to focus on SI joint exercises and strengthening. PQRS Measure Charge Sheet Measure #130: Documentation of Current Meds in Medical Chart: Patient's medications documented in chart Measure #226: Tobacco Use: Screen & Cessation Intervention: Pt not a tobacco user Measure #111: Pneumonia Vaccination: Pneumococcal vaccine NOT administered or previously given Measure #47: Advance Care Plan: Advance care planning discussed & documented, pt chose/unable to give Measure #412: Opioid Treatment Agreement: No documentation of signed opioid treatment agreement Measure #408: Opioid Therapy Follow-up Evaluation: Patient had NO f/u eval minimum every 3 months during opioid therapy Measure #317: Preventitive Care & Scrn High Bld Press & F/U: Pre-hypertensive or hypertensive BP documented, pt will f/u with PCP Measure #128: Body Mass Index (BMI) Screening & Follow-up: BMI documented ABOVE normal parameters - f/u documented Measure #131: Pain Assessment & Follow-up: Pain positive & plan documented, Follow-up scheduled Measure #431: Unhealthy Alcohol Use Preventative Care & Scrn: Patient not identified as an unhealthy alcohol user Objective - Vital Signs Vital signs: Vital Signs Temp Pulse 83 07/30/19 13:06 Resp 16 07/30/19 13:06 BP 139/89 07/30/19 13:06 Pulse Ox 95 07/30/19 13:06 PQRS Measure Charge Sheet PQRS Narrative: Smoking Status Former smoker Blood Pressure 139/89 Pain Intensity [Lower Back] 1 Scale Used Numeric (1 - 10) Hx Alcohol Use (MH) No Home Medications: Ambulatory Orders Cholecalciferol [Vitamin D3] 2,000 unit PO AC-LUNCH 05/14/17 Cholestyramine/Aspartame [Cholestyramine Light Packet] 4 gm PO DAILY 05/14/17 Krill Oil 500 mg PO AC-SUPPER 05/14/17 Nabumetone [Relafen] 500 mg PO TID 05/14/17 Aspirin 81 mg PO DAILY 01/07/18 Gabapentin [Neurontin] 100 mg PO TID-W/MEALS 06/24/19 HYDROcodone/APAP 10-325MG [[place] 10-325] 1 tab PO BID PRN 06/30/19 Controlled Substance Measures - Controlled Substance Measures Is patient prescribed a controlled substance at discharge?: No
== END | disposition home or self-care (01) ==
LOC: PNWHC3 12:53
PROVIDERS: ATTEND Anesthesiology
DX: G89.29 Other chronic pain (principal); M51.16 Intervertebral disc disorders with radiculopathy, lumbar region; M47.26 Other spondylosis with radiculopathy, lumbar region; M46.96 Unspecified inflammatory spondylopathy, lumbar region; M53.3 Sacrococcygeal disorders, not elsewhere classified; Z87.891 Personal history of nicotine dependence; Z79.82 Long term (current) use of aspirin; Z79.899 Other long term (current) drug therapy
CPT/HCPCS: 99211

== ENCOUNTER 2019-08-12 08:16 | Day surgery (SDC) | payer MEDICARE, OTHER ==
[2019-08-11 11:02] VITALS: BMI 31.4
[2019-08-12 09:14] VITALS: RESP 16; TEMP 98.2
[2019-08-12] MEDS ORDERED: LACTATED RINGERS 1,000 ML IV ONE (10:17)
--- NOTE | 2019-08-12 10:17 | P.PCN ---
Date of Procedure: 08/12/19 Procedure(s) Performed: PREOPERATIVE DIAGNOSIS: 1-Lumbosacral spondylosis with facet arthropathy without myelopathy. 2- sacroiliit. post operative Diagnosis: . 1-Lumbosacral spondylosis with facet arthropathy without myelopathy. 2- sacroiliit. PROCEDURES: 1- Left radiofrequency thermocoagulation/ablation of the L5 dorsal ramus. 2- Left multi-site radiofrequency thermocoagulation/ablation of the S1, S2, lateral branchs. The procedure was performed using fluoroscopic guidance during needle placement to assure proper position (fluoroscopy images available in radiology department) ANESTHESIA = moderate sedation with intravenous versed mg and Fentanyle mcg EBL: NONE INDICATION/MEDICAL NECESSITY: History of low back pain secondary to left right bilateral sacroiliitis and lumbosacral arthropathy unresponsive to more conservative treatments. The patient reported more than 50% relief of pain symptoms following 2 previous diagnostic blocks with Bupivacaine. PROCEDURE DESCRIPTION: The patient was seen and identified in the preoperative area. Risks, benefits, complications, and alternatives were discussed with the patient. The patient agreed to proceed with the procedure and signed the consent. Vital signs were checked before and after the procedure and they remained stable. Patient ambulated to the procedure room and time out was completed. The patient was placed in the prone position on the procedure table and a pillow was placed under the abdomen to reduce lumbar lordosis. The lumbosacral area was prepped and draped in the usual sterile fashion. Critical pause was taken. L5 Dorsal Ramus RF: Using right oblique fluoroscopy, the junction of the transverse process and the superior articular process of the Left S1 vertebra, which correspond to the fluoroscopic image of the "eye of the Marko dog" was identified. Subsequently, a 10-cm 20 -gauge radiofrequency cannula with a 10-mm active tip was advanced under fluoroscopic guidance until contact was made with periosteum. At this level, the Sensory testing of the L5 dorsal ramus was performed at 50 Hz and 0 to 1 volt with production of concordant pain starting at 0.5 volt. Motor stimulation was done at 2.5 Hz with stimulation of mulitifidus muscle contration . No radicular symptoms or paresthesias were produced during the testing. Subsequently, the L5 dorsal ramus was subjected to a radiofrequency ablation at 80 degree celsius for 90 seconds . after 0.5% Ropivacaine 1 ml injected at each level after negative aspirations . S1, S2, Lateral Branch RF: (The S3 foraminal was not visualized for this reason the S3 lateral branches was done ) The lateral margins of the Right S1, S2, foramina were identified using AP fluoroscopy. Under fluoroscopic guidance, three 10-cm 20 -gauge radiofrequency cannula with a 10-mm active tip were inserted at 8-10 mm peripheral to the posterior S1 foramen, at various locations using clock-face coordinates. The center of the clock was registered at the lateral margin of the foramen. The 6:30, 8:00, and 9:30 oclock positions were used. At this level, the sensory testing of the S1 lateral branch was performed at 50 Hz and 0 to 1 volt at the three levels with production of concordant pain starting at 0.5 volt. Motor stimulation was done at 2.5 Hz. No radicular symptoms or paresthesias were produced during the testing. Subsequently, the S1 lateral branch was subjected to a radiofrequency ablation at a mode of 90 seconds at 80 degrees Celsius at the 3 levels after negative motor and sensory testing and after injecting 0.5 ml of preservative free Ropivacaine 0.5 %. The same procedure was performed at the level of the S2 foramen. (the S3 foramen was not visualized for this is and I did not do the RFA of lateral branches of S3) The needle was withdrawn intact after each injection. COMPLICATIONS: The patient tolerated the procedure well without any acute complications. DISPOSTION/PLAN: The patient ambulated to the recovery area after the procedure in a stable condition for observation. Patient was reexamined prior to discharge. Patient was observed for 30 minutes in the recovery area and was discharged home, accompanied by an adult, after meeting discharged criteria. Discharge instructions were give to the patient by the staff. Patient was specifically instructed not to drive today and to rest for the rest of the day. The patient will schedule a follow up visit in the clinic in weeks or earlier if needed.
[2019-08-12 10:41] VITALS: BP 170/85; PULSE 70
--- NOTE | 2019-08-12 16:15 | FL ---
Fluoroscopy HISTORY: Pain 53 seconds fluoroscopy time supplied to the referring clinician. 6 intraoperative C-arm images docum ent the procedure. See dictated report from anesthesia.
== END 2019-08-12 10:57 | disposition home or self-care (01) ==
LOC: ORPAIN 08:16
PROVIDERS: ATTEND Specialist
DX: G89.29 Other chronic pain (principal); M47.26 Other spondylosis with radiculopathy, lumbar region; M51.16 Intervertebral disc disorders with radiculopathy, lumbar region; M46.1 Sacroiliitis, not elsewhere classified; M53.3 Sacrococcygeal disorders, not elsewhere classified; Z87.891 Personal history of nicotine dependence; Z79.82 Long term (current) use of aspirin; Z79.899 Other long term (current) drug therapy; Z88.1 Allergy status to other antibiotic agents; Z88.8 Allergy status to other drugs, medicaments and biological substances
CPT/HCPCS: 64640 ×2; 64635; J2250; J1030; J3010; 99152; 99153

== ENCOUNTER → 2019-09-17 | Outpatient (CLI) | payer MEDICARE, OTHER ==
[2019-09-17 11:42] VITALS: BP 143/94; PULSE 83; RESP 18
--- NOTE | 2019-09-17 12:31 | P.PN ---
Progress Note - Text Progress Note Date: 09/17/19 Progress Note Date: 09/17/2019 Patient returns for followup for chronic back pain. She status post left sacroiliac radio frequency ablation L5-S1, S1 to S3. She is reporting excellent relief. She is reporting improved ADLs, VAS ranging between 1-3 out of 10 in severity on her left side. She is unable to weight-bear for long periods of time until having had the radio frequency ablation. She is very satisfied with the results. She still having pain in her right buttock, radiating into her groin and on the anterior aspect of her thigh. She does endorse walking with a slight antalgic gait, she does have difficulty with hip flexion and externally rotating her right leg to put her socks and shoes on. Her primary care doctor ordered an x-ray of her right hip roughly 4 years ago that showed mild to moderate degeneration. VAS on her right side ranged between 3-5 out of 10 severity depending on activity. She states it gets worse with activity, and cannot identify any significant pain pattern. In addition to above, 13-point review of systems is also negative for chest pain, shortness of breath, changes in vision, changes in hearing, new onset weakness, abdominal pain, diarrhea, extreme fatigue, malaise, fever, skin changes, homicidal or suicidal ideation, or bowel or bladder incontinence. Vital Signs: Reviewed in EMR Gen: WDWN, AAOx3, NAD HEENT: NCAT, EOMI, hearing grossly normal Pulm: resp unlabored Abd: soft, NT, ND Neck: supple, trachea midline ROM in flexion lumbar spine: reduced ROM in extension lumbar spine: reduced Lumbar paravertebral tenderness: + Facet loading: + bilateral SI joint tenderness: Negative bilateral Right hip exam: Range of motion limited secondary to pain, hip flexion limited secondary to pain, adduction limited secondary to pain. External rotation with flexion difficult secondary to pain. No tenderness along the greater trochanteric bursa appreciated. Imaging: Reviewed in EMR Assessment: 1. Lumbosacral spondylosis 2. Lumbar spondylosis without myelopathy 3. Right hip osteoarthritis 4. Lumbar Degenerative Disc Disease Plan: 1. Explanation: Diagnoses, prognoses, and multiple treatment options including but not limited to physical therapy, interventional therapies, adjuvant medical therapies, narcotic medication therapies, and surgery were discussed with the patient and all questions were answered to the patient's satisfaction. 2. Opioid agreement: Patient not been prescribed opiates at the moment. 3. Counseling: The patient was counseled extensively on BMI and exercise. Specifically, the patient was instructed regarding the importance of smoking michelle sation, weight control, and exercise in the context of both chronic pain and overall health. 4. Procedures: Right interarticular hip injection with fluoroscopy 5. Consultations: none 6. Investigations: Maps reviewed and appropriate. 7. Medications: none prescribed 8. Disposition: Patient will return for procedure. PQRS measures: 1-Patient's medications are documented in the chart. 2-Tobacco use is negative 3-Patient has not had a pneumococcal vaccine. 4-Advanced care planning discussed, patient unable to give. 5-Opioid contract NOT signed with the patient. 6-Pain positive, follow-up visit or procedure scheduled 7-Patient's blood pressure measured and documented, and patient will follow up with the primary care due to hypertension. 8-Patient's weight was measured, and body mass index ABOVE the normal limits, and counseling was done. Patient instructed to follow up with PCP. 9-Patient WAS NOT identified as an unhealthy alcohol user.
== END | disposition home or self-care (01) ==
LOC: PNWHC3 11:27
PROVIDERS: ATTEND Anesthesiology
DX: M51.36 Other intervertebral disc degeneration, lumbar region (principal); M47.816 Spondylosis without myelopathy or radiculopathy, lumbar region; M47.817 Spondylosis without myelopathy or radiculopathy, lumbosacral region; M16.11 Unilateral primary osteoarthritis, right hip
CPT/HCPCS: 99211

== ENCOUNTER 2019-09-30 07:57 | Day surgery (SDC) | payer MEDICARE, OTHER ==
[2019-09-26 12:48] VITALS: BMI 31.9
[~2019-09-30 07:57] MED LIST changes: +BUPIVACAINE (PF) 0.5% 30 ML VIAL ONE; +IOPAMIDOL M200 10 ML VIAL ONE; +MIDAZOLAM 2 MG/2 ML VIAL ONE; +TRIAMCINOLONE ACETONIDE 40 MG/ML 1 ML VIAL ONE; +fentaNYL (PF) 50 MCG/ML 2 ML AMP ONE
[2019-09-30 08:49] VITALS: TEMP 98.4
[2019-09-30] MEDS ORDERED: IV FLUID CONTINUATION 600 ML IV ONE (09:45)
--- NOTE | 2019-09-30 09:45 | P.PCN ---
Date of Procedure: 09/30/19 Procedure(s) Performed: Preoperative diagnoses = right hip joint osteoarthritis, left sacral region m yofascial pain syndrome. Postoperative diagnoses= same Procedure= intra-articular right hip injection with fluoroscopy , left sacral region trigger point injections Anesthesia= local anesthetic with lidocaine 1%, moderate sedation with fentanyl and Versed, sedation time 12 minutes Fluoroscopy was used for the procedure and fluoroscopic images saved to chart Procedure indication= patient with a history of severe right hip pain secondary to osteoarthritis and left sacral region myofascial pain with identifiable trigger points which is not responsive to conservative treatment. Description of the procedure= patient was seen and identified in the preoperative holding area, risk and benefits , complications ,and alternatives of the procedure were discussed with the patient and patient agreed with the preceding, patient signed the consent and IV was started and vital signs were monitored throughout the procedure and it was stable. The patient was taken to the operating room and placed in supine position the groin area was prepped with chlorhexidine 3 and draped with the standard fashion, AP fluoroscopy was used to identify the junction of the head and neck of the femur. Skin and subc utaneous tissue was infiltrated with 2 mL of 1% lidocaine. a 22-gauge 3.5" Quincke spinal needle was advanced through the skin and subcutaneous tissue into the hip joint. After negative aspiration,.2 MLS of Isovue 200 was injected, revealing intra-articular spread. Then the treatment solution of 4 cc 0.5% ropivacaine with 40 mg of Kenalog injected. The patient tolerated the procedure well without any complications. The patient was then placed in the prone position, and my attention was turned to trigger points in the left sacral region. 10 trigger points were identified by palpation and marked. Region was prepped with chlorhexidine. Using a 1.5 inch 21-gauge needle, a total of 10 trigger points were injected with 1-1.5 mL of 0.5% ropivacaine per trigger point. A total of 15 mils of ropivacaine was used. The patient was then placed supine. Complications= there was no acute complication identified. Disposition= patient was placed in the supine position and transferred to recovery room in stable condition for observation and was discharged home after meeting discharge criteria, and discharge instruction was given and patient will follow up in the pain clinic in a few weeks
[2019-09-30 10:05] VITALS: BP 153/86; PULSE 66; RESP 16
--- NOTE | 2019-09-30 13:35 | FL ---
EXAMINATION TYPE: FL guided pain mgmt statistic DATE OF EXAM: 09/30/2019 CLINICAL HISTORY: Right hip pain. TECHNIQUE: Fluoroscopy. COMPARISON: None. FINDINGS: Fluoroscopic guidance was provided during pain relief procedure performed by Dr. Duran . A total of 2 seconds of fluoroscopic time was utilized during the procedure and single spot intraoperat francine image is acquired. Single image acquired shows needle localization near level of hip joint. IMPRESSION: As Above.
== END 2019-09-30 10:23 | disposition home or self-care (01) ==
LOC: ORPAIN 07:57
PROVIDERS: ATTEND Anesthesiology
DX: M79.18 Myalgia, other site (principal); M16.51 Unilateral post-traumatic osteoarthritis, right hip; Z79.82 Long term (current) use of aspirin; Z88.2 Allergy status to sulfonamides; Z88.8 Allergy status to other drugs, medicaments and biological substances
CPT/HCPCS: 20553; 20610; J2250; J3301; J3010; Q9966; 99152

== ENCOUNTER → 2019-10-28 | Outpatient (CLI) | payer MEDICARE, OTHER ==
[2019-10-28 11:19] VITALS: BP 139/85; PULSE 92; RESP 18
--- NOTE | 2019-10-28 11:40 | P.PN ---
Progress Note - Text Progress Note Date: 10/28/19 This is a 74-year-old lady with history of pain in the buttock and the left thigh posteriorly. The patient had trigger point injection in the sacral area and intra-articular steroid injection on the right hip joint. Her pain went away for a few days after these injections then it came back and it do this on a cycle of 3 days right now although she denies any pain. Patient denies new-onset weakness, bowel/bladder incontinence, or any other signs or symptoms of cauda equina syndrome. There are no signs of acute intoxication, and no indications of medication diversion or overuse. In addition to above, 13-point review of systems is also negative for chest pain, shortness of breath, changes in vision, changes in hearing, new onset weakness, abdominal pain, diarrhea, extreme fatigue, malaise, fever, skin changes, homicidal or suicidal ideation, or bowel or bladder incontinence. Vital Signs: Reviewed in EMR Gen: AAOx3, NAD HEENT: PERRLA,hearing grossly normal Pulm: resp unlabored Heart: Regular Neck: supple, trachea midline Neuro exam of the lower extremities: Normal and symmetrical knee reflexes, absent ankle reflexes bilaterally, normal muscle strength bilaterally and symmetrically. Straight leg raising test: Negative bilaterally. Abdiel's test: Neuro: CN II-XII grossly intact, Imaging: Reviewed in EMR/chart Assessment: Myofascial pain osteoarthritis Plan: 1. Explanation: Opioid and psychological risk scores were reviewed. Diagnoses, prognoses, and multiple treatment options including but not limited to physical therapy, interventional therapies, adjuvant medical therapies, narcotic medication therapies, and surgery were discussed with the patient and all questions were answered to the patient's satisfaction. 2. Opioid agreement: No opioids are prescribed 3. Counseling: The patient was counseled extensively on SMOKING CESSATION, BODY MASS INDEX, EXERCISE. Specifically, the patient was instructed regarding the importance of smoking cessation, obesity, and exercise in the context of both chronic pain and overall health. 4. Procedures: None 5. Consultations: None 6. Investigations: None 7. Medications: None 8. Disposition: Follow up on an as-needed basis 9. Maps were reviewed and were appropriate. PQRS measures: 1-Patient's medications are documented in the chart. 2-Tobacco use is negative, counseling given 3-Patient has not had a pneumococcal vaccine. 4-Advanced care planning discussed, patient unable to give 5-Opioid contract not signed with the patient. 6-Pain positive, follow-up visit or procedure scheduled 7-Patient's blood pressure measured and documented within normal limits. The patient will follow up with his primary care physician. 8-Patient's weight was measured, and body mass index ABOVE the normal limits, and counseling was done. Patient instructed to follow up with PCP. 9-Patient WAS NOT identified as an unhealthy alcohol user.
== END | disposition home or self-care (01) ==
LOC: PNWHC3 11:05
PROVIDERS: ATTEND Anesthesiology
DX: M19.90 Unspecified osteoarthritis, unspecified site (principal); M79.18 Myalgia, other site
CPT/HCPCS: 99211

== ENCOUNTER → 2020-03-11 | Outpatient (CLI) | payer MEDICARE, OTHER ==
--- NOTE | 2020-03-11 13:51 | MM ---
Reason for exam: screening (asymptomatic). Last mammogram was performed 1 year and 10 months ago. History: Patient is postmenopausal and history of other cancer. Took estrogen for 1 year 2 months. Took progesterone for 1 year 2 months. Physical Findings: A clinical breast exam by your physician is recommended on an annual basis and results should be correlated with mammographic findings. MG 3D Screening Mammo W/Cad Bilateral CC and MLO view(s) were taken. Prior study comparison: April 29, 2018, bilateral MG 3d screening mammo w/cad. August 13, 2015, bilateral MG screening mammo w CAD. There are scattered fibroglandular densities. Stable benign calcifications. There is no discrete abnormality. No significant changes when compared with prior studies. ASSESSMENT: Benign, BI-RAD 2 RECOMMENDATION: Routine screening mammogram of both breasts in 1 year.
== END | disposition home or self-care (01) ==
LOC: RADMAMWWP 09:33
PROVIDERS: ATTEND Family Medicine
DX: Z12.31 Encounter for screening mammogram for malignant neoplasm of breast (principal)
CPT/HCPCS: 77063; 77067

== ENCOUNTER → 2021-02-28 | Outpatient (CLI) | payer MEDICARE, OTHER ==
[2021-02-28 12:02] LABS: Basophils # (A) 0.1 k/uL (0-0.2); Basophils % (A) 1 %; Eosinophils # (A) 0.3 k/uL (0-0.7); Eosinophils % (A) 4 %; HCT 39.5 % (34.0-46.0); HGB 13.4 gm/dL (11.4-16.0); Lymphocytes # (A) 1.7 k/uL (1.0-4.8); Lymphocytes % (A) 23 %; MCH 30.7 pg (25.0-35.0); MCV 90.4 fL (80.0-100.0); Mean Platelet Volume 7.5; Monocytes # (A) 0.7 k/uL (0-1.0); Monocytes % (A) 10 %; Neutrophils # (A) 4.5 k/uL (1.3-7.7); Neutrophils % (A) 61 %; Platelet Count 306 k/uL (150-450); RBC 4.37 m/uL (3.80-5.40); RDW 13.6 % (11.5-15.5); WBC 7.3 k/uL (3.8-10.6)
== END | disposition home or self-care (01) ==
LOC: LABPAT 10:56
PROVIDERS: ATTEND Surgery
DX: Z01.812 Encounter for preprocedural laboratory examination (principal); K43.0 Incisional hernia with obstruction, without gangrene; R94.31 Abnormal electrocardiogram [ECG] [EKG]
CPT/HCPCS: 36415; 85025; 93005

== ENCOUNTER 2021-03-08 06:03 | Day surgery (SDC) | payer MEDICARE, OTHER ==
[2021-03-03 09:37] VITALS: BMI 33.9
[~2021-03-08 06:03] MED LIST changes: +ACETAMINOPHEN TAB 500 MG TAB PO PRN; -BUPIVACAINE (PF) 0.5% 30 ML VIAL ONE; +HEPARIN SODIUM,PORCINE/PF 5,000 UNIT/0.5 ML SYRINGE SQ PRN; -IOPAMIDOL M200 10 ML VIAL ONE; -LACTATED RINGERS 1,000 ML IV SCH; -MIDAZOLAM 2 MG/2 ML VIAL ONE; -TRIAMCINOLONE ACETONIDE 40 MG/ML 1 ML VIAL ONE; -fentaNYL (PF) 50 MCG/ML 2 ML AMP ONE
[2021-03-08] MEDS ORDERED: ONDANSETRON 4 MG/2 ML VIAL ONE (06:24)
[2021-03-08] MEDS ORDERED: LIDOCAINE 1% (10MG/ML) FOR IV START INTRADERMA ONE (06:30)
[2021-03-08] MEDS ORDERED: LACTATED RINGERS 1,000 ML IV ONE (06:30)
[2021-03-08] MEDS ORDERED: MIDAZOLAM 2 MG/2 ML VIAL IV ONE (06:31)
[2021-03-08] MEDS ORDERED: DEXAMETHASONE SOD PHOSPHATE 4 MG/ML 1 ML VIAL IV ONE (06:31)
[2021-03-08] MEDS ORDERED: SCOPOLAMINE 1.5MG/72HR PATCH TRANSDERM ONE (07:20)
[2021-03-08] MEDS ORDERED: ROPIVACAINE 5 MG/ML 30 ML VIAL ONE (07:45)
[2021-03-08] MEDS ORDERED: fentaNYL (PF) 50 MCG/ML 2 ML AMP ONE (07:45)
[2021-03-08] MEDS ORDERED: GLYCOPYRROLATE 0.2 MG/ML 2 ML VIAL ONE (07:45)
[2021-03-08] MEDS ORDERED: NEOSTIGMINE 1 MG/ML 10 ML VIAL ONE (07:45)
[2021-03-08] MEDS ORDERED: KETOROLAC 15 MG/ML 1 ML VIAL ONE (07:45)
[2021-03-08] MEDS ORDERED: ROCURONIUM 10 MG/ML (5 ML VIAL) IV ONE (07:45)
[2021-03-08] MEDS ORDERED: SODIUM CHLORIDE 0.9% (PF) 10 ML VIAL ONE (07:45)
[2021-03-08] MEDS ORDERED: PROPOFOL 10 MG/ML 20 ML VIAL IV ONE (07:45)
[2021-03-08] MEDS ORDERED: LIDOCAINE 1% INJ 10MG/ML (20 ML MDV) ONE (07:45)
[2021-03-08] MEDS ORDERED: DEXAMETHASONE SOD PHOSPHATE 4 MG/ML 1 ML VIAL ONE (07:45)
[2021-03-08] MEDS ORDERED: KETAMINE 10 MG/ML 20 ML VIAL ONE (07:45)
[2021-03-08] MEDS ORDERED: BUPIVACAINE (PF) 0.5% 30 ML VIAL SQ ONE (08:10)
--- NOTE | 2021-03-08 08:35 | P.ANPRN ---
Procedure Note - Anesthesia - Nerve Block Performed Bilateral Erector Spinae Single Time Out Performed: Yes Date of Procedure: 03/08/21 Procedure Start Time: 06:57 Procedure Stop Time: 07:15 Location of Patient: PreOp Indication: Acute Post-Operative Pain, Requested by Surgeon Sedation Type: Sedate with meaningful contact maintained Preparation: Sterile Prep, Sterile Dressing Position: Prone Catheter: None Needle Types: Facet Needle Gauge: 20 Ultrasound used to visualize needle placement: Yes Ultrasound used to observe medication spread: Yes Injectate: Other (see comment) (0.375% ropivacaine + decadron 4 mg per side) Blood Aspirated: No Pain Paresthesia on Injection Noted: No Resistance on Injection: Normal Image Stored and Saved: Yes Events: Uneventful and Well Tolerated
[2021-03-08 08:56] VITALS: TEMP 97.5
--- NOTE | 2021-03-08 08:58 | P.GSHP ---
History of Present Illness H&P Date: 03/08/21 Chief Complaint: Incisional hernia Cyst 75-year-old female has developed incarcerated incisional hernia near her umbilical incision from previous laparoscopy Past Medical History Past Medical History: Deep Vein Thrombosis (DVT), Musculoskeletal Disorder, Osteoarthritis (OA) Additional Past Medical History / Comment(s): Hx migraines, diverticulitis, IBS & kidney stones. Blood clots to bilateral legs 2017. Back pain with sciatica. History of Any Multi-Drug Resistant Organisms: None Reported Past Surgical History: Adenoidectomy, Cholecystectomy, Hernia Repair, Orthopedic Surgery, Tonsillectomy Additional Past Surgical History / Comment(s): Bilateral knee surgery, pain procedures. Cataracts/Lens Implants. VEIN STRIPPING LEFT LEG - 2019. Vein ablation right leg, kidney stone sx Past Anesthesia/Blood Transfusion Reactions: Previous Problems w/ Anesthesia Additional Past Anesthesia/Blood Transfusion Reaction / Comment(s): "One time Could not wake me up". Adopted-no family hx. Past Psychological History: No Psychological Hx Reported Smoking Status: Former smoker Past Alcohol Use History: None Reported Additional Past Alcohol Use History / Comment(s): Quit smoking 40 yrs ago, smoked for 5 yrs, up to 3 PPD. Past Drug Use History: None Reported - Past Family History Mother Family Medical History: Unable to Obtain Additional Family Medical History / Comment(s): adopted Medications and Allergies Home Medications Medication Instructions Recorded Confirmed Type Cholestyramine/Aspartame 4 gm PO BID 05/14/17 03/03/21 History [Cholestyramine Light Packet] Krill Oil 350 mg PO AC-SUPPER 05/14/17 03/03/21 History Nabumetone [Relafen] 500 mg PO BID 05/14/17 03/03/21 History Aspirin 81 mg PO DAILY 01/07/18 03/03/21 History Lutein 20 mg PO DAILY 09/04/19 03/03/21 History Melatonin 5 mg PO HS 09/04/19 03/03/21 History Cholecalciferol (Vitamin D3) 4,000 unit PO DAILY 03/03/21 03/03/21 History [Vitamin D3 (4,000 Iu)] Vitamin C 282 mg PO DAILY 03/03/21 History Acetaminophen Tab [Tylenol] 650 mg PO Q6H #30 tab 03/08/21 Rx Docusate [Colace] 100 mg PO BID #20 capsule 03/08/21 Rx Ibuprofen [Motrin] 600 mg PO Q6HR PRN #40 tab 03/08/21 Rx oxyCODONE HCL [OxyIR] 5 mg PO Q6H PRN 3 Days #10 tab 03/08/21 Rx Allergies Allergy/AdvReac Type Severity Reaction Status Date / Time quinapril [From Accupril] Allergy Anaphylaxis Verified 03/03/21 09:25 rofecoxib [From Vioxx] Allergy kidneys Verified 03/03/21 09:25 shut down Sulfa (Sulfonamide Allergy Rash/Hives Verified 03/03/21 09:25 Antibiotics) Surgical - Exam Vital Signs Temp Pulse Resp BP Pulse Ox 97.2 F L 93 20 199/96 97 03/08/21 06:30 03/08/21 06:30 03/08/21 06:30 03/08/21 06:30 03/08/21 06:30 - General well developed, well nourished, no distress - Eyes PERRL - ENT normal pinna - Neck no masses - Respiratory normal expansion - Cardiovascular Rhythm: regular - Abdomen 5 cm incisional hernia incarcerated Abdomen: soft, non tender Assessment and Plan Assessment: Incarcerated incisional hernia. We'll perform laparoscopic robotic-assisted repair.
--- NOTE | 2021-03-08 08:59 | P.OP ---
Date of Procedure: 03/08/21 Preoperative Diagnosis: Incarcerated incisional hernia Postoperative Diagnosis: Incarcerated incisional hernia Procedure(s) Performed: Laparoscopic robotic repair of incarcerated incisional hernia Partial omentectomy Anesthesia: [place] Surgeon: Zaid Mcgee Estimated Blood Loss (ml): 5 Pathology: other (Omentum/hernia sac) Condition: stable Disposition: PACU Description of Procedure: The patient was placed on the operating table in the supine position. He received general anesthesia. His abdomen was prepped and draped usual fashion. Using a 5 mm optical trocar under direct visualization the peritoneal cavity was entered in the right upper quadrant. The abdomen was then insufflated. The laparoscope was placed back into the perineal cavity. Next a 8 mm robotic trocar was placed in the right lower quadrant and a 12 mm robotic trocar was placed in the right lateral position. The original 5 mm trocar was exchanged for a 8 mm robotic trocar. The patient's placed in the left side up position. And the patient was docked to the robot. The incisional hernia was visualized. Using hook cautery the peritoneum over the incisional hernia was excised. The incarcerated omentum and hernia sac were dissected free and sent to pathology. The fascial opening was repaired using 0V LOC suture. Next a piece of 11 cm round ventral light ST mesh was placed into the. Cavity and secured with 2 OV lock suture. The patient was undocked the robot. The needles were retrieved. The fascia of the 12 mm trocar site was closed with 0 Ethibond suture. Skin was closed interrupted 3-0 Monocryl suture. Dermabond dressings was applied. Patient tolerated procedure well and was sent to recovery room stable condition.
[2021-03-08 09:06] VITALS: RESP 16
[2021-03-08] MEDS: HYDROmorphone 0.5 MG/0.5 ML SYRINGE IVP ONE ×2 (09:12→09:22)
[2021-03-08 10:21] VITALS: BP 152/82; PULSE 77
== END 2021-03-08 11:02 | disposition home or self-care (01) ==
LOC: OR 06:03
PROVIDERS: ATTEND Surgery
DX: K43.0 Incisional hernia with obstruction, without gangrene (principal); Z87.891 Personal history of nicotine dependence; M19.90 Unspecified osteoarthritis, unspecified site; G43.909 Migraine, unspecified, not intractable, without status migrainosus; Z88.2 Allergy status to sulfonamides; Z88.8 Allergy status to other drugs, medicaments and biological substances; Z79.899 Other long term (current) drug therapy; Z79.82 Long term (current) use of aspirin
CPT/HCPCS: 49655; S2900; 64999; 88305

== ENCOUNTER → 2021-09-08 | Outpatient (CLI) | payer MEDICARE, OTHER ==
[2021-09-08 10:10] VITALS: BP 183/94; PULSE 90; RESP 18; TEMP 98.3
--- NOTE | 2021-09-08 10:42 | P.PAINPG ---
Subjective Progress Note Date: 09/08/21 Principal diagnosis: Back pain, and hip pain Ms. Dorado is a 76 -year-old pleasant female came to the [facility] pain clinic for follow-up visit . Patient has ongoing pain for many years. Patient had left hip joint injection, hip bursa injection lumbar epidural straight injections, SI radiofrequency ablation on left side and sacroiliac joint area trigger point injections . She had complete pain relief for 2 years. But one week before she was decorating the [employer] tree. During the time she was trying to reach and twisted her back. Since then she is experiencing pain in the gluteal area, sacroiliac joint area radiating to her left lower extremity. Patient describes pain is aching, throbbing, constant type of pain. Pain is radiating to left lower extremity. Patient rated pain levels are 7-8 out of 10 in severity. With the help of medications pain levels are 6-7 out of 10 in severity. Activities making pain worse. Medications, resting, interventional procedures helping in relieving patient's pain. Patient pain some days better than others. Overall activities decreased secondary to pain. Because of the pain sometimes patient is feeling lack of sleep, interest, and energy. Denied any side effects with the medications. Denied any bowel or bladder problems at this time. Patient is using cane for walking support. Patient denies any suicidal or homicidal ideations intent or plan. Patient denies any auditory or visual hallucinations. Patient denied any red flag symptoms related to pain. Objective - Vital Signs Vital signs: Intake & Output 09/07/21 09/08/21 09/08/21 18:59 06:59 18:59 Weight 88.451 kg - Exam General: Well-developed, well-nourished, no acute distress HEENT: Normocephalic, and atraumatic Neck: Supple, no neck swelling Psychiatric: Appropriate mood, and affect COSMETIC SURGEON: No focal neurological deficits Musculoskeletal: Upper extremity: Normal strength, and range of motion. Sensation grossly intact Lower extremity: Normal strength, and decreased range of motion secondary to pain on left lower extremity. Sensation grossly intact Lumbar spine: Paravertebral tenderness: Negative Lumbar facet load test : Negative Sacroiliac joint tenderness: Positive more worse on left side Thigh thrust test: Positive more worse on left side SI joint compression test: Positive more worse on left side Fabere test: Positive more worse on left side Pyriformis stretch test positive on left side SLR test unable to perform secondary to pain - Constitutional Constitutional Comment(s): 13 point review of symptoms negative except as mentioned in history of present illness Assessment and Plan Assessment: Left pyriformis syndrome Bilateral sacroiliac joint dysfunction Myofascial pain syndrome Hip osteoarthritis Plan: #1 Diagnoses, prognosis, and multiple treatment options including but not li mited to physical therapy, interventional therapy, adjunct medication therapy, narcotic medication, and surgical options were discussed with the patient. And all questions were answered to the patient's satisfaction. #2 treatment plan agreement : Patient was thoroughly discussed regarding the treatment options, alternatives, and importance of exercises as tolerated. Patient clearly understood. #3 Patient was counseled on importance of regular exercise. Including gladis chi, aerobic exercises as tolerated. Which helps for chronic pain, and overall well- being. #4 investigations: MAPS- reviewed , urine drug test- none #5 diagnostic tests: None #6 consultation : Physical therapy # 7 interventional procedures: Left-sided pyriformis injection, and bilateral sacroiliac joint injection. Procedure, complications, alternatives discussed with the patient. #8 medications : Zanaflex 2 mg by mouth every 12 hours to every 8 hours as needed for muscle spasm dispense 60 with no refill. Medication side effects discussed with the patient. # 9 TENS unit's, and percussion massage device #10 disposition: scheduled to follow up with pain clinic in 4 weeks duration. Time with Patient: Less than 30 PQRS Measure Charge Sheet Measure #130: Documentation of Current Meds in Medical Chart: Patient's medications documented in chart Measure #226: Tobacco Use: Screen & Cessation Intervention: Pt not a tobacco user Measure #111: Pneumonia Vaccination: Pneumococcal vaccine administered or previously received Measure #47: Advance Care Plan: Advance care planning discussed & documented, plan or surrogate given Measure #412: Opioid Treatment Agreement: No documentation of signed opioid treatment agreement Measure #408: Opioid Therapy Follow-up Evaluation: Patient had NO f/u eval mini mum every 3 months during opioid therapy Measure #317: Preventitive Care & Scrn High Bld Press & F/U: Pre-hypertensive or hypertensive BP documented, pt will f/u with PCP Measure #128: Body Mass Index (BMI) Screening & Follow-up: BMI documented ABOVE normal parameters - f/u documented Measure #131: Pain Assessment & Follow-up: Pain positive & plan documented Measure #431: Unhealthy Alcohol Use Preventative Care & Scrn: Patient not identified as an unhealthy alcohol user - Pain Location Bilateral Buttock Non-Pharmacological Interventions: Heat, Inactivity, Massage, Physical Therapy, Relaxation Technique Pharmacological Interventions: Block, PRN Medication PQRS Narrative: Smoking Status Former smoker Pain Intensity [Bilateral 5 Buttock] Scale Used Numeric (1 - 10) Hx Alcohol Use (MH) No Home Medications: Ambulatory Orders Cholestyramine/Aspartame [Cholestyramine Light Packet] 4 gm PO BID 05/14/17 Krill Oil 500 mg PO AC-SUPPER 05/14/17 Nabumetone [Relafen] 500 mg PO BID 05/14/17 Aspirin 81 mg PO DAILY 01/07/18 Lutein 20 mg PO DAILY 09/04/19 Ascorbic Acid [Vitamin C] 250 mg PO DAILY 03/03/21 Cholecalciferol (Vitamin D3) [Vitamin D3 (4,000 Iu)] 6,000 unit PO DAILY 03/03/21 Ascorbic Acid/Elderberry Fruit [Elderberry-Vit C 50-100 mg Chw] 1 tab PO DAILY 09/07/21 Cyclobenzaprine [Flexeril] 5 mg PO BID PRN 09/07/21 Solifenacin Succinate [Vesicare] 10 mg PO DAILY 09/07/21 Zinc 50 mg PO DAILY 09/07/21 Controlled Substance Measures - Controlled Substance Measures Is patient prescribed a controlled substance at discharge?: No
== END ==
LOC: PNWHC3 09:34
DX: G57.02 Lesion of sciatic nerve, left lower limb (principal); M53.3 Sacrococcygeal disorders, not elsewhere classified; M79.18 Myalgia, other site; M16.12 Unilateral primary osteoarthritis, left hip; Z87.891 Personal history of nicotine dependence; Z88.2 Allergy status to sulfonamides; Z88.8 Allergy status to other drugs, medicaments and biological substances; Z88.6 Allergy status to analgesic agent
CPT/HCPCS: 99211

== ENCOUNTER 2021-10-06 06:16 | Day surgery (SDC) | payer MEDICARE, OTHER ==
[2021-10-03 12:01] VITALS: BMI 29.8
[~2021-10-06 06:16] MED LIST changes: -ACETAMINOPHEN TAB 500 MG TAB PO PRN; -HEPARIN SODIUM,PORCINE/PF 5,000 UNIT/0.5 ML SYRINGE SQ PRN; +LACTATED RINGERS 1,000 ML IV SCH
[2021-10-06 06:44] VITALS: TEMP 97.7
[2021-10-06] MEDS ORDERED: MIDAZOLAM 2 MG/2 ML VIAL ONE (06:55)
[2021-10-06] MEDS ORDERED: ROPIVACAINE 5MG/ML 20ML VIAL ONE (06:55)
[2021-10-06] MEDS ORDERED: fentaNYL (PF) 50 MCG/ML 2 ML AMP ONE (06:55)
[2021-10-06] MEDS ORDERED: methylPREDNISolone ACETATE 40 MG/ML 1 ML VIAL ONE (06:55)
[2021-10-06] MEDS ORDERED: IV FLUID CONTINUATION 1,000 ML IV ONE (07:24)
--- NOTE | 2021-10-06 07:24 | P.PCN ---
Date of Procedure: 10/06/21 Procedure(s) Performed: Procedure= bilateral sacroiliac joints steroid injection under fluoroscopy guidance (fluoroscopy image stored on file in the radiology Department ) Left piriformis muscle injections. Preoperative diagnosis= 1-sacroiliitis 2-bilateral sacroiliac joint dysfunction 3-lumbar facet arthropathy. 4-left piriformis muscle spasm Postoperative diagnosis=Same as preop Diagnosis . Complication = none Condition= stable Anesthesia= moderate sedation with intravenous Versed 2 mg , and fentanyl 50 micrograms . Indication for the procedure= patient complaining of low back pain , examination was positive for severe tenderness over the sacroiliac joints bilaterally and patient diagnosed with sacroiliitis, for this reason , she was good candidate for sacroiliac joint steroid injection. Description of the procedure= procedure risk and benefits discussed with the patient, including but not limited, risk of infection and bleeding, and ALLERGIC reaction to the medication and not complete pain relief and patient agreed with the preceding patient taken to the operating room, placed in prone position or standard monitors applied to the patient then after induction of anesthesia back prepped with chlorhexidine 3 times , Then under strict sterile technique, first I did the right sacroiliac joint the which was identified under fluoroscopy guidance been local infiltration of the skin and subcu interstitial with lidocaine 1% then 22-gauge Quincke Needle adva nced slowly under fluoroscopy and placed in the right sacroiliac joint needle placement confirmed with AP and oblique and lateral view and after appropriate needle placement confirmed and after negative aspiration, or heme , then Ropivacaine 0.5% 4 mL, and 20 mg of Depo-Medrol mixed together and injected in the right sacroiliac joint after negative aspiration patient tolerated the procedure well without any complication. Then the left sacroiliac joint steroid injection done under strict sterile technique local infiltration of the skin and subcu interstitial at the location of the left sacroiliac joint then a 22-gauge Quincke Needle advanced slowly under fluoroscopy time placed in the left sacroiliac joint, needle placement confirmed with AP and oblique and lateral view then after appropriate needle placement confirmed and after negative aspiration 0.5% Ropivacaine 4 mL and 20 mg of Depo-Medrol injected in the left sacroiliac joint after negative aspiration patient tolerated the procedure well that any complications . After than the left piriformis muscle injection done in a sterile technique, using 25-gauge needle the location of the piriformis muscle visualized under fluoroscopy guidance between the sacrum and the medial aspect of the femoral head (at the location of the left piriformis muscle) using 25-gauge needle with a 5 ML of ropivacaine 0.5% injected at the medial aspect of the left piriformis muscle, injections done after negative aspiration ,and there was no paresthesia during the injection, patient tolerated the procedure well without any complications, she will follow up in the pain clinic in 2-3 weeks
--- NOTE | 2021-10-06 07:36 | FL ---
EXAMINATION TYPE: FL guided pain mgmt statistic DATE OF EXAM: 10/06/2021 CLINICAL HISTORY: Bilateral sacroiliac joint pain. TECHNIQUE: Fluoroscopy. COMPARISON: None. FINDINGS: Fluoroscopic guidance was provided during pain relief procedure performed by Dr. Dumont . A total of 14 seconds of fluoroscopic time was utilized during the procedure and 3 spot images are acquired. Images acquired shows needle localization at inferior aspect bilateral sacroiliac joints. IMPRESSION: As Above.
[2021-10-06 07:40] VITALS: BP 137/86; PULSE 80; RESP 16
== END 2021-10-06 08:01 | disposition home or self-care (01) ==
LOC: ORPAIN 06:16
PROVIDERS: ATTEND Specialist
DX: M46.1 Sacroiliitis, not elsewhere classified (principal); M51.36 Other intervertebral disc degeneration, lumbar region; M48.061 Spinal stenosis, lumbar region without neurogenic claudication; M54.16 Radiculopathy, lumbar region
CPT/HCPCS: 20552; J2250; J1030; J3010; J2795; G0260; 99152

== ENCOUNTER 2021-11-10 06:37 | Day surgery (SDC) | payer MEDICARE, OTHER ==
[2021-11-09 11:20] VITALS: BMI 30.2
[2021-11-10] MEDS ORDERED: LACTATED RINGERS 1,000 ML IV SCH (06:56)
[2021-11-10] MEDS ORDERED: LIDOCAINE 1% (10MG/ML) FOR IV START INTRADERMA PRN (06:56)
[2021-11-10] MEDS ORDERED: LACTATED RINGERS 1,000 ML IV ONE (07:21)
[2021-11-10 07:22] VITALS: TEMP 97.8
[2021-11-10] MEDS ORDERED: MIDAZOLAM 2 MG/2 ML VIAL ONE (07:23)
[2021-11-10] MEDS ORDERED: ROPIVACAINE 5MG/ML 20ML VIAL ONE (07:23)
[2021-11-10] MEDS ORDERED: fentaNYL (PF) 50 MCG/ML 2 ML AMP ONE (07:23)
[2021-11-10] MEDS ORDERED: methylPREDNISolone ACETATE 40 MG/ML 1 ML VIAL ONE (07:23)
--- NOTE | 2021-11-10 07:37 | P.PCN ---
Date of Procedure: 11/10/21 Procedure(s) Performed: Procedure= bilateral sacroiliac joints steroid injection under fluoroscopy guidance (fluoroscopy image stored on file in the radiology Department ) Preoperative diagnosis= 1-sacroiliitis 2-lumbar degenerative disc disease 3- lumbar spondylosis with lumbar facet arthropathy Postoperative diagnosis=1-sacroiliitis 2-lumbar degenerative disc disease 3- lumbar spondylosis with lumbar facet arthropathy Complication = none Condition= stable Anesthesia= moderate sedation with intravenous Versed 1 mg , and fentanyl 100 micrograms . Indication for the procedure= patient complaining of low back pain , examination was positive for severe tenderness over the sacroiliac joints bilaterally and patient diagnosed with sacroiliitis, for this reason , she was good candidate for sacroiliac joint steroid injection. Description of the procedure= procedure risk and benefits discussed with the patient, including but not limited, risk of infection and bleeding, and ALLERGIC reaction to the medication and not complete pain relief and patient agreed with the preceding patient taken to the operating room, placed in prone position or standard monitors applied to the patient then after induction of anesthesia back prepped with chlorhexidine 3 times , Then under strict sterile technique, first I did the right sacroiliac joint the which was identified under fluoroscopy guidance been local infiltration of the skin and subcu interstitial with lidocaine 1% then 22-gauge Quincke Needle advanced slowly under fluoroscopy and placed in the right sacroiliac joint needle placement confirmed with AP and oblique and lateral view and after appropriate needle placement confirmed and after negative aspiration, or heme , then Ropivacaine 0.5% 3 mL, and 20 mg of Depo-Medrol mixed together and injected in the right sacroiliac joint after negative aspiration patient tolerated the procedure well without any complication. Then the left sacroiliac joint steroid injection done under strict sterile technique local infiltration of the skin and subcu interstitial at the location of the left sacroiliac joint then a 22-gauge Quincke Needle advanced slowly under fluoroscopy time placed in the left sacroiliac joint, needle placement confirmed with AP and oblique and lateral view then after appropriate needle placement confirmed and after negative aspiration 0.5% ropivacaine 3 mL and 20 mg of Depo-Medrol injected in the left sacroiliac joint after negative aspirat ion patient tolerated the procedure well that any complications and she will follow up in clinic 3 weeks
[2021-11-10] MEDS ORDERED: IV FLUID CONTINUATION 1,000 ML IV ONE (07:40)
[2021-11-10 07:57] VITALS: BP 160/95; PULSE 77; RESP 17
--- NOTE | 2021-11-10 08:35 | FL ---
Fluoroscopy HISTORY: Pain 8 seconds fluoroscopy time supplied to the referring clinician. 2 intraoperative C-arm images docume nt the procedure. See dictated report from anesthesia.
== END 2021-11-10 08:12 | disposition home or self-care (01) ==
LOC: ORPAIN 06:37
PROVIDERS: ATTEND Specialist
DX: M46.1 Sacroiliitis, not elsewhere classified (principal); M51.36 Other intervertebral disc degeneration, lumbar region; M47.816 Spondylosis without myelopathy or radiculopathy, lumbar region
CPT/HCPCS: J2250; J1030; J3010; J2795; G0260; 99152

== ENCOUNTER → 2021-12-19 | Outpatient (CLI) | payer MEDICARE, OTHER ==
--- NOTE | 2021-12-19 09:50 | P.PN ---
Subjective Progress Note Date: 12/19/21 Principal diagnosis: A 76 yr old female with a history of severe and chronic low back pain secondary to lumbar degenerative disc diseases and lumbar spondylosis with facet arthropathy presents today for evaluation of lower back pain. Pain level is 3/10 in intensity, burning, tight, tingling sensation in the lower aspects of her lumbar spine, left greater than right, with shooting pain down to the glutes, left greater than right and lower extremities. Pain is provoked by l aying supine, walking for 15 minutes or sitting for 10 minutes or more. Pain is alleviated with medications which are ineffective and patient does not want refills, heat, injections in the past, physical therapy that ended November 2021, massage therapy, laying on her left side and rest. Interventional pain procedures completed include BL SI RFA, LESI x 3, R Trochanter Bursa injection Patient is currently on Eads Patient denies any side effects of the medication(s), denies excessive drowsiness or sleepiness, denies suicidal ideation and reports that the current pain medication is helping to control the pain and improve activities of daily living. Patient denies any motor or sensory deficits. Patient denies any fever or night sweats, denies any change in the bowel movements or urination. Physical Examination: -Constitutional: Cooperative. Not in acute distress . -HEENT: Neck is supple. No lymphadenopathy. No thyromegaly. Normal thyroid size. Eyes: No ptosis , no icterus, no photophobia. ENT: No auditory deficits. Normal oropharynx. No Thrush. - Respiratory: Chest clear to auscultations bilaterally. No wheezing. No rhonc hi. - Cardiovascular: Regular rate and rhythm. S1 / S2 , no S3 , no S4. - Gastrointestinal: Abdomen soft no tenderness. Bowel sounds positive in all four quadrants. No organomegaly. - Genitourinary: Deferred. - Neurologic: Cranial nerve II to XII intact. No focal neurological deficits. - Psychatric: Alert & oriented x 3. Matching mood & appropriate affect. Judgment and insight intact. - Lymphatic: No Lymphadenopathy. - Musculoskeletal: Cervical spine: Muscle bulk/ tone/ strength in the bilateral upper extremities normal. Facet loading test cervical area positive. Lumbar spine: Motor bulk/ tone/ strength lower extremities , thigh and legs : 5/5 Deep tendon reflexes : Normal Knee Jerk. Normal Ankle Jerk . Vertebral body tenderness to palpation over Lumbar Facet Loading Test positive over BL L4-L5, L5-S1 with jump reflex Straight Leg Raise: positive at 30 degrees right side/ left side Gaenslen's Test positive Sacral spine : Severe tenderness over the Sacroiliac joint: right side / left side Range of motion: Flexion of the lumbar spine <60 degrees Range of motion: Extension of the lumbar spine <20 degrees Gaenslen's Test positive Ashley test: positive right side / left side Assessment and plan: Chronic low back pain secondary to lumbar degenerative disc disease , lumbar spondylosis with facet arthropathy without myelopathy Is not interested in additional medication refills as they are becoming increasingly ineffective. Recommendation of facet block of the medial branches, L4-L5, L5-S1. May need a series of injections, up until RFA, to obtain optimal pain relief. Risks, benefits of procedure discussed and patient verbalized understanding. Denies anticoagulant use. Denies medical history of diabetes. All patient questions answered MAPS reviewed and it was appropriate. I have spent 31 minutes on patient care today. Dr Dumont was available by phone for the evaluation of this patient. The time was used to review the medical records including relevant urine studies and Prescription history (MAPs), review of the available imaging, evaluation and examination of the patient, coordination of care with the medical staff and if applicable referring physicians, as well as creation of the medical record PQRS Measure Charge Sheet PQRS Narrative: Smoking Status Former smoker Narcotic Agreement Date Signed 10/24/21 Hx Alcohol Use (MH) No Home Medications: Ambulatory Orders Cholestyramine/Aspartame [Cholestyramine Light Packet] 4 gm PO DAILY PRN 05/14/17 Nabumetone [Relafen] 500 mg PO BID PRN 05/14/17 Aspirin 81 mg PO DAILY 01/07/18 Lutein 20 mg PO DAILY 09/04/19 Ascorbic Acid [Vitamin C] 250 mg PO DAILY 03/03/21 Solifenacin Succinate [Vesicare] 10 mg PO DAILY 09/07/21 Cholecalciferol [Vitamin D3 (25 Mcg = 1000 Iu)] 100 mcg PO DAILY 10/20/21 Krill/[place]-3/Dha/Epa/Lipids [Krill Oil 350 mg Softgel] 1 each PO DAILY 10/20/21 Melatonin 10 mg PO HS 10/20/21 HYDROcodone/APAP 5-325MG [Eads 5-325] 1 tab PO Q12HR PRN 30 Days #60 tab 10/24/21 tiZANidine [Zanaflex] 2 mg PO Q8HR PRN 30 Days #90 tab 10/24/21
[2021-12-19 11:12] VITALS: BP 160/112; PULSE 86; RESP 18; TEMP 98.2
== END ==
LOC: PNWHC3 09:01
PROVIDERS: ATTEND Specialist
DX: M51.36 Other intervertebral disc degeneration, lumbar region (principal); M47.816 Spondylosis without myelopathy or radiculopathy, lumbar region; G89.29 Other chronic pain; Z87.891 Personal history of nicotine dependence; Z88.2 Allergy status to sulfonamides; Z88.6 Allergy status to analgesic agent; Z88.8 Allergy status to other drugs, medicaments and biological substances
CPT/HCPCS: 99211

== ENCOUNTER → 2022-01-28 | Outpatient (CLI) | payer MEDICARE, OTHER ==
--- NOTE | 2022-01-28 14:34 | MR ---
EXAMINATION TYPE: MR brain wo/w con DATE OF EXAM: 01/28/2022 COMPARISON: None HISTORY: Mild cognitive impairment, memory deficit. CONTRAST: Standard multiplanar, multisequence MRI departmental protocol images were obtained without contrast a nd with 8 mL intravenous Gadavist gadolinium contrast. There is some cerebral cortical atrophy. There is no mass effect or midline shift. No evidence of int racranial hemorrhage. Diffusion images show no evidence of an acute infarct. There are small foci of increased signal at the vieira-white matter junction of both cerebral hemispheres. These measure up to 4 mm. Total number is less than 15. Corpus callosum is intact. Brainstem is intact. No evidence of posterior fossa mass. Sella turcica ap pears normal. The contrast images show no pathologic enhancement. There is normal enhancement of the venous sinuses . IMPRESSION: Mild atrophy. Mild peripheral white matter changes likely related to microvascular ischemia. No acute intracranial abnormality.
== END | disposition home or self-care (01) ==
LOC: RADMRIMAIN 07:50
PROVIDERS: ATTEND Family Medicine
DX: G31.9 Degenerative disease of nervous system, unspecified (principal)
CPT/HCPCS: 70553; A9585

== ENCOUNTER → 2022-05-17 | Outpatient (CLI) | payer MEDICARE, OTHER ==
--- NOTE | 2022-05-19 18:35 | MM ---
Reason for Exam: Screening (asymptomatic). Last mammogram was performed 2 year(s) and 2 month(s) ago. Patient History: Menarche at age 13. First Full-Term at age 20. Postmenopausal. Other cancer. Estrogen for 1 year, 2 months. Progesterone for 1 year, 2 months. Risk Values: Kaylene 5 year model risk: 1.6%. NCI Lifetime model risk: 3.2%. Prior Study Comparison: 08/13/2015 Bilateral Screening Mammogram, [facility]. 04/29/2018 Bilateral Screening Mammogram, [facility]. 03/11/2020 Bilateral Screening Mammogram, [facility]. Tissue Density: There are scattered fibroglandular densities. Findings: Analyzed By CAD. There is no suspicious group of microcalcifications or new suspicious mass in either breast. Overall Assessment: Negative, BI-RAD 1 Management: Screening Mammogram of both breasts in 1 year. A clinical breast exam by your physician is recommended on an annual basis and results should be correlated with mammographic findings. Electronically signed and approved by: Oc Clark DO
== END | disposition home or self-care (01) ==
LOC: RADMAMWWP 07:48
PROVIDERS: ATTEND Family Medicine
DX: Z12.31 Encounter for screening mammogram for malignant neoplasm of breast (principal); Z78.0 Asymptomatic menopausal state
CPT/HCPCS: 77063; 77067

== ENCOUNTER 2022-12-14 05:48 | Day surgery (SDC) | payer MEDICARE, BC ==
[2022-12-14] MEDS ORDERED: LACTATED RINGERS 1,000 ML IV SCH (06:13)
[2022-12-14] MEDS ORDERED: ONDANSETRON 4 MG/2 ML VIAL IVP ONE (06:13)
[2022-12-14] MEDS ORDERED: DEXAMETHASONE SOD PHOSPHATE 4 MG/ML 1 ML VIAL IV ONE (06:13)
[2022-12-14] MEDS ORDERED: HYDROmorphone 0.5 MG/0.5 ML SYRINGE IVP PRN (06:13)
[2022-12-14 07:01] VITALS: RESP 16
[2022-12-14] MEDS ORDERED: MIDAZOLAM 2 MG/2 ML VIAL IVP ONE (07:04)
[2022-12-14] MEDS ORDERED: fentaNYL (PF) 50 MCG/ML 2 ML AMP IVP ONE (07:04)
--- NOTE | 2022-12-14 07:29 | HP ---
HISTORY AND PHYSICAL DATE OF SURGERY: 12/14/22 HISTORY OF PRESENT ILLNESS: Phuong Dorado is a 77-year-old patient, seen with progressive right shoulder pain. After treatment options were discussed with her, she elected to proceed with right shoulder arthroscopy. Consent regarding the procedure was obtained. Medical clearance was provided by Dr. Lakhani. PAST MEDICAL HISTORY: Hyperlipidemia and depression. PAST SURGICAL HISTORY: Cholecystectomy, inguinal herniorrhaphy, knee arthroscopy, tonsillectomy, and D and C. DAILY MEDICATIONS: 1. Aspirin. 2. Lutein. 3. Vitamins. ALLERGIES: 1. Sulfa. 2. Vioxx. 3. Accupril. SOCIAL HISTORY: She denies current tobacco use. PHYSICAL EVALUATION OF THE RIGHT SHOULDER: Flexion is 160 degrees, abduction is 130 degrees, external rotation is 50 degrees along with pain and weakness. She is tender along the anterolateral acromion and rotator cuff insertion. Impingement is positive 80 degrees. Drop-arm sign is positive. Cross- body adduction sign is positive. Distal neurovascular exam is intact. IMAGING STUDIES: Right shoulder radiographs revealed a type 2 acromion along with severe acromioclavicular joint osteoarthritis and cystic changes of the tuberosity. Right shoulder MRI revealed rotator cuff tendon tear, impingement along with severe acromioclavicular joint osteoarthritis and partial long head biceps tendon tear. IMPRESSION: 1. Right shoulder impingement with rotator cuff tear. 2. Right shoulder acromioclavicular joint osteoarthritis. 3. Right shoulder partial long head biceps tendon tear. 4. Hypertension. PLAN: Right shoulder arthroscopy with subacromial decompression, arthroscopic rotator cuff repair, Cecilia procedure, biceps tenotomy, and debridement. MMODL / IJN: [id number] /
[2022-12-14] MEDS ORDERED: ePHEDrine 50 MG/ML 1 ML VIAL ONE (07:32)
[2022-12-14] MEDS ORDERED: SUCCINYLCHOLINE CHLORIDE 200 MG/10 ML VIAL IV ONE (07:32)
[2022-12-14] MEDS ORDERED: fentaNYL (PF) 50 MCG/ML 2 ML AMP ONE (07:32)
[2022-12-14] MEDS ORDERED: LIDOCAINE 2% INJ 20 MG/ML (2 ML VIAL) ONE (07:32)
[2022-12-14] MEDS ORDERED: PROPOFOL 10 MG/ML 20 ML VIAL IV ONE (07:32)
--- NOTE | 2022-12-14 08:35 | P.ANPRN ---
Procedure Note - Anesthesia - Nerve Block Performed Right Interscalene Single Time Out Performed: Yes (0703) Date of Procedure: 12/14/22 Procedure Start Time: :04 Procedure Stop Time: :09 Location of Patient: PreOp Indication: Acute Post-Operative Pain, Requested by Surgeon Specifically requested for management of pain by DrNilay: Adriano Turner Sedation Type: Sedate with meaningful contact maintained Preparation: Sterile Prep Position: Supine Catheter: None Needle Types: Pajunk Needle Gauge: 21 Ultrasound used to visualize needle placement: Yes Ultrasound used to observe medication spread: Yes Injectate: 0.5% Ropivacaine (see comment for volume) (30cc) Blood Aspirated: No Pain Paresthesia on Injection Noted: No Resistance on Injection: Normal Image Stored and Saved: Yes Events: Uneventful and Well Tolerated
[2022-12-14] MEDS ORDERED: LACTATED RINGERS 1,000 ML IV ONE (09:12)
--- NOTE | 2022-12-14 09:25 | P.OP ---
Date of Procedure: 12/14/22 Preoperative Diagnosis: Right shoulder impingement Postoperative Diagnosis: 1. Right shoulder rotator cuff 2. Right shoulder impingement 3. Right shoulder acromioclavicular joint osteoarthritis 4. Right shoulder partial long head biceps tendon tear Procedure(s) Performed: 1. Right shoulder arthroscopic rotator cuff repair 2. Right shoulder arthroscopic subacromial decompression 3. Right shoulder arthroscopic Cecilia procedure 4. Right shoulder arthroscopic biceps tenotomy Implants: 4Arthrex 4.75 swivel lock anchors Anesthesia: GETA, regional (Interscalene block) Surgeon: Adriano Turner Newspaper Delivery Counselor #1: Jacky Patel Estimated Blood Loss (ml): 11 Pathology: none sent Condition: stable Disposition: PACU Indications for Procedure: 77-year-old patient seen with progressive right shoulder pain. After having t reatment options discussed, she elected to proceed with arthroscopy. Operative Findings: See description of procedure Description of Procedure: Patient underwent an interscalene block by department of anesthesia. The patient was then taken to the operative suite. The patient underwent a general anesthetic by the department of anesthesia. The patient was placed into a lateral position and secured. There was appropriate padding of the bony prominence. Right shoulder was then prepped and draped in normal sterile orthopedic fashion. We placed the extremity in 10 pounds of longitudinal traction. A posterior incision was now made for a posterior working portal site. The trocar and cannula were inserted into the glenohumeral joint. Arthroscopy was initiated. Spinal needle was now inserted anteriorly, to ascertain the anterior working portal site. An incision was now made in that area, a trocar was inserted followed by a probe. There was some significant partial tearing of the long head biceps tendon along with some hyperemia. There were mild grade 1 chondromalacia changes about the glenohumeral joint with no tears. The labrum w as stable. I performed an arthroscopic biceps tenotomy. Residual labrum was again probed and was found to be stable. Instruments were now removed from the glenohumeral joint. Utilizing the posterior working portal site, the trocar and cannula were inserted into the subacromial space. Arthroscopy initiated. I made an incision 2 fingerbreadths lateral to the acromion. I introduced my trocar followed by my ArthroCare ablator. I now began ablating thick subacromial bursal tissue, which exposed the undersurface of the anterior acromion. There was diminished subacromial space. There was a very prominent anterior acromion. A motorized bur was introduced and a subacromial decompression was performed. I also excised some osteophytes off the inferior aspect of the distal clavicle. The AC joint w as visualized and noted to be fairly arthritic. The motorized bur was introduced in the anterior portal site and a Cecilia procedure was performed without difficulty, decompressing the AC joint nicely. I turned my attention to the rotator cuff. There was a 2.53 cm rotator cuff tear. I debrided the margins getting down to stable tendon tissue. I introduced my motorized bur and abraded the footprint area, getting some petechial bleeding. I now made an accessory portal site off the lateral aspect of the acromion. I punched 2 holes medial for medial row fixation with the assistance of Drew WANG carefully tapping the punch with a mallet as I held the punch and the camera. I now introduced both anchors into the pre-punched holes and Drew WANG tapped them with the mallet as I held anchors and the camera. Drew WANG now screwed the anchors in place a while I held the anchor guide and camera. All 8 limbs of suture were now passed through good bites of rotator cuff tendon. I now punched 2 holes for lateral row fixation again I held the punch and camera while Drew WANG used a mallet to tap in the punch. We now passed sutures through both anchors and individually I introduced the anchors into the pre- punch holes I held the anchor guide in position with one hand holding the camera with the other hand while Drew WANG tensioned the sutures and screwed in the anchors one at a time. All residual suture limbs were now clipped. We had good compression of the tendon along the entire footprint. Instruments now removed from the portal sites. All portal sites were approximated with nylon suture. Sterile dressings were applied followed by a shoulder immobilizer. Jacky WANG assisted in this complex case. The patient was awakened, transferred to a bed, and taken to recovery in stable condition.
[2022-12-14 09:32] VITALS: TEMP 97
[2022-12-14 10:25] VITALS: BP 144/85
[2022-12-14 10:48] VITALS: PULSE 67
== END 2022-12-14 11:41 | disposition home or self-care (01) ==
LOC: OR 05:48
PROVIDERS: ATTEND Orthopaedic Surgery
DX: M75.101 Unspecified rotator cuff tear or rupture of right shoulder, not specified as traumatic (principal); M19.011 Primary osteoarthritis, right shoulder; M94.211 Chondromalacia, right shoulder; S46.111A Strain of muscle, fascia and tendon of long head of biceps, right arm, initial encounter; M75.41 Impingement syndrome of right shoulder; I10 Essential (primary) hypertension; E78.5 Hyperlipidemia, unspecified; F32.A Depression, unspecified; F41.9 Anxiety disorder, unspecified; K21.9 Gastro-esophageal reflux disease without esophagitis; Z98.890 Other specified postprocedural states; Z90.49 Acquired absence of other specified parts of digestive tract; Z79.82 Long term (current) use of aspirin; Z79.899 Other long term (current) drug therapy; Z88.2 Allergy status to sulfonamides; Z88.8 Allergy status to other drugs, medicaments and biological substances; X58.XXXA Exposure to other specified factors, initial encounter
CPT/HCPCS: 29827; 29824; 29826; 64415; 76942; C1713 ×2; J2250; J0330; J1100; J0690; J2405; J3010; J2704; J2001

== ENCOUNTER → 2023-02-26 | Outpatient (CLI) | payer MEDICARE, BC ==
[2023-02-26 10:42] VITALS: BP 172/109; PULSE 82; RESP 18; TEMP 98.4
--- NOTE | 2023-02-26 14:21 | P.PAINPG ---
PQRS Measure Charge Sheet Comment: A 77 yr old female with a history of severe and chronic LBP secondary to BL Sacroiliitis without myelopathy presents today for LBP. Pain level is provoked at 10 /10 in intensity, constant, localized in the L lower lumbar spine where it meets the tailbone, sharp in character w shooting towards the L hip. Pain is provoked by laying supine, standing from a supine position. Pain is alleviated with PT 2 yrs ago for lumbar spine, heat, medications, topical, reclining and rest. Interventional pain procedures completed include BL SI x2 Patient is currently on Relofen Patient denies any side effects of the medication(s), denies excessive drowsiness or sleepiness, denies suicidal ideation and reports that the current pain medication is helping to control the pain and improve activities of daily living. Patient denies any motor or sensory deficits. Patient denies any fever or night sweats, denies any change in the bowel movements or urination. Physical Examination: -Constitutional: Cooperative. Not in acute distress . - Neurologic: Cranial nerve II to XII intact. No focal neurological deficits. - Psychatric: Alert & oriented x 3. Matching mood & appropriate affect. Judgment and insight intact. - Musculoskeletal: Cervical spine: Muscle bulk/ tone/ strength in the bilateral upper extremities normal Vertebral body tenderness to palpation over Spurling test positive Distraction test positive Facet loading test positive TTP Thoracic spine Muscle bulk / tone/ strength in the bilateral paraspinal muscles normal Vertebral body tender to palpation over Facet loading test positive TTP Lumbar spine: Motor bulk/ tone/ strength lower extremities , thigh and legs : 5/5 Deep tendon reflexes : Normal Knee Jerk. Normal Ankle Jerk . Vertebral body tenderness to palpation over Siegel Test positive Lumbar Facet Loading Test positive Straight Leg Raise: positive at 30 degrees right side/ left side Gaenslen's Test positive Sacral spine : Severe tenderness over the Sacroiliac joint: right side / left side Range of motion: Flexion of the lumbar spine <60 degrees Range of motion: Extension of the lumbar spine <20 degrees Gaenslen's Test positive right side / left side Ashley test: positive right side / left side Thigh Thrust Test positive right side / left side Sacral Thrust Test positive right side / left side Assessment and plan: Chronic LBP secondary to L Sacroiliitis Recommendation of L SI injection. May need a series for optimal pain relief. Risks, benefits of procedure discussed and pt verbalized understanding. Admits to anticoagulant use or medical history of diabetes. Protocol for discontinuation/ continuation of medications jannette procedure discussed. Minimal anesthesia provided, if clinically indicated, consisting of Versed and Fentanyl. All questions answered. I have spent less than 30 minutes on patient care today. Dr Dumont was available by phone for the evaluation of this patient. The time was used to review the medical records including relevant urine studies and Prescription history (MAPs), review of the available imaging, evaluation and examination of the patient, coordination of care with the medical staff and if applicable referring physicians, as well as creation of the medical record PQRS Narrative: Smoking Status Former smoker Narcotic Agreement Date Signed 10/24/21 Hx Alcohol Use (MH) No Home Medications: Ambulatory Orders Cholestyramine/Aspartame [Cholestyramine Light Packet] 4 gm PO DAILY PRN 05/14/17 Nabumetone [Relafen] 500 mg PO BID PRN 05/14/17 Aspirin 81 mg PO DAILY 01/07/18 Lutein 20 mg PO DAILY 09/04/19 Ascorbic Acid [Vitamin C] 250 mg PO DAILY 03/03/21 Solifenacin Succinate [Vesicare] 10 mg PO DAILY 09/07/21 Cholecalciferol [Vitamin D3 (25 Mcg = 1000 Iu)] 100 mcg PO DAILY 10/20/21 Krill/[place]-3/Dha/Epa/Lipids [Krill Oil 350 mg Softgel] 1 each PO DAILY 10/20/21 Melatonin 10 mg PO HS 10/20/21 B6(Unknown) 1 tab PO DAILY 12/11/22 Rosuvastatin Calcium 5 mg PO 1200 12/11/22 Zinc(Unknown) 1 tab PO DAILY 12/11/22 modafiniL [Provigil] 100 mg PO QAM 12/11/22 HYDROcodone/APAP 5-325MG [[place] 5-325] 1 tab PO Q6HR PRN #21 tab 12/14/22 Controlled Substance Measures - Controlled Substance Measures Is patient prescribed a controlled substance at discharge?: No
== END ==
LOC: PNWHC3 09:35
PROVIDERS: ATTEND Specialist
DX: M46.1 Sacroiliitis, not elsewhere classified (principal); G89.29 Other chronic pain; M51.16 Intervertebral disc disorders with radiculopathy, lumbar region; Z87.891 Personal history of nicotine dependence; Z88.2 Allergy status to sulfonamides; Z88.1 Allergy status to other antibiotic agents; Z79.82 Long term (current) use of aspirin; Z88.6 Allergy status to analgesic agent
CPT/HCPCS: 99211

== ENCOUNTER → 2023-04-11 | Outpatient (CLI) | payer MEDICARE, BC ==
[2023-04-11 11:04] VITALS: BP 151/93; PULSE 82; RESP 16; TEMP 98.4
--- NOTE | 2023-04-11 13:12 | P.PAINPG ---
PQRS Measure Charge Sheet Comment: A 77 yr old female with a history of severe and chronic LBP secondary to BL Sacroiliitis without myelopathy presents today for evaluation s/p L SI injection Pt states she experienced 85% pain relief x 3 wks s/p procedure. Pain level is provoked at 0/10 in intensity. Pain is alleviated with injections, PT 2 yrs ago for lumbar spine, use of a cane for ambulatory assistance (for her knee), heat, medications, topical, reclining and rest. Interventional pain procedures completed include BL SI x2, L SI x1 Patient is currently on Relofen Patient denies any side effects of the medication(s), denies excessive drowsiness or sleepiness, denies suicidal ideation and reports that the current pain medication is helping to control the pain and improve activities of daily living. Patient denies any motor or sensory deficits. Patient denies any fever or night sweats, denies any change in the bowel movements or urination. Physical Examination: -Constitutional: Cooperative. Not in acute distress . - Neurologic: Cranial nerve II to XII intact. No focal neurological deficits. - Psychatric: Alert & oriented x 3. Matching mood & appropriate affect. Judgment and insight intact. - Musculoskeletal: Cervical spine: Muscle bulk/ tone/ strength in the bilateral upper extremities normal Vertebral body tenderness to palpation over Spurling test positive Distraction test positive Facet loading test positive TTP Thoracic spine Muscle bulk / tone/ strength in the bilateral paraspinal muscles normal Vertebral body tender to palpation over Facet loading test positive TTP Lumbar spine: Motor bulk/ tone/ strength lower extremities , thigh and legs : 5/5 Deep tendon reflexes : Normal Knee Jerk. Normal Ankle Jerk . Vertebral body tenderness to palpation over Siegel Test positive Lumbar Facet Loading Test positive Straight Leg Raise: positive at 30 degrees right side/ left side Gaenslen's Test positive Sacral spine : Severe tenderness over the Sacroiliac joint: right side / left side Range of motion: Flexion of the lumbar spine <60 degrees Range of motion: Extension of the lumbar spine <20 degrees Gaenslen's Test positive right side / left side Ashley test: positive right side / left side Thigh Thrust Test positive right side / left side Sacral Thrust Test positive right side / left side Assessment and plan: Chronic LBP secondary to L Sacroiliitis Pt will manage residual pain and may return to clinic as needed. All questions answered. I have spent less than 30 minutes on patient care today. Dr Dumont was available by phone for the evaluation of this patient. The time was used to review the medical records including relevant urine studies and Prescription history (MAPs), review of the available imaging, evaluation and examination of the patient, coordination of care with the medical staff and if applicable referring physicians, as well as creation of the medical record PQRS Narrative: Smoking Status Former smoker Narcotic Agreement Date Signed 10/24/21 Hx Alcohol Use (MH) No Home Medications: Ambulatory Orders Cholestyramine/Aspartame [Cholestyramine Light Packet] 4 gm PO DAILY 05/14/17 Nabumetone [Relafen] 500 mg PO BID 05/14/17 Aspirin 81 mg PO DAILY 01/07/18 Lutein 20 mg PO DAILY 09/04/19 Ascorbic Acid [Vitamin C] 250 mg PO DAILY 03/03/21 Solifenacin Succinate [Vesicare] 10 mg PO DAILY 09/07/21 Cholecalciferol [Vitamin D3 (25 Mcg = 1000 Iu)] 25 mcg PO DAILY 10/20/21 Krill/[place]-3/Dha/Epa/Lipids [Krill Oil 350 mg Softgel] 1 each PO DAILY 10/20/21 B6(Unknown) 1 tab PO DAILY 12/11/22 Rosuvastatin Calcium 5 mg PO 1200 12/11/22 HYDROcodone/APAP 5-325MG [[place] 5-325] 1 tab PO Q6HR PRN #21 tab 12/14/22 Controlled Substance Measures - Controlled Substance Measures Is patient prescribed a controlled substance at discharge?: No
== END ==
LOC: PNWHC3 09:35
PROVIDERS: ATTEND Specialist
DX: M46.1 Sacroiliitis, not elsewhere classified (principal); G89.29 Other chronic pain; Z87.891 Personal history of nicotine dependence; Z79.82 Long term (current) use of aspirin; Z88.2 Allergy status to sulfonamides; Z88.8 Allergy status to other drugs, medicaments and biological substances
CPT/HCPCS: 99211

== ENCOUNTER 2023-09-18 05:50 | Inpatient (IN) | payer MEDICARE, BC ==
[2023-09-12 11:05] VITALS: BMI 29.5
--- NOTE | 2023-09-17 09:30 | P.HPOR ---
History of Present Illness H&P Date: 09/17/23 Chief Complaint: Left knee pain The patient's a 78-year-old retired female who presents with progressive left knee pain for the past several months worsening recently. She's having anterior/ lateral pain along with swelling. She has intermittent giving way. She's tried injections along with medications with only temporary partial relief. She does use a cane. She notes her pain limits her normal function and activities. Review of Systems As per HPI Past Medical History Past Medical History: Deep Vein Thrombosis (DVT), GERD/Reflux, Hyperlipidemia, Hypertension, Musculoskeletal Disorder, Osteoarthritis (OA) Additional Past Medical History / Comment(s): Hx migraines, diverticulitis, IBS, kidney stones. Hx DVT's to bilateral legs in 2017. Back pain with sciatica. 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 History of Any Multi-Drug Resistant Organisms: None Reported Past Surgical History: Adenoidectomy, Cholecystectomy, Hernia Repair, Orthopedic Surgery, Tonsillectomy Additional Past Surgical History / Comment(s): Bilateral knee surgery, pain procedures, cataracts/lens implants, hernia repair X2(inguinal and ventral), vein stripping left leg, vein ablation right leg, ablation of nerves in back, major right shoulder surgery(rotator cuff, bone spur/calcifications removed, bone removed from scapula and clavicle)12/2022. Past Anesthesia/Blood Transfusion Reactions: Previous Problems w/ Anesthesia, Motion Sickness Additional Past Anesthesia/Blood Transfusion Reaction / Comment(s): "Could not wake me up"-only happened once many years ago. Adopted-no family hx known. Past Psychological History: No Psychological Hx Reported Smoking Status: Former smoker Past Alcohol Use History: None Reported Additional Past Alcohol Use History / Comment(s): Quit smoking 40 yrs ago, smoked for 5 yrs, up to 3 PPD. Past Drug Use History: None Reported - Past Family History Mother Family Medical History: Unable to Obtain Additional Family Medical History / Comment(s): Patient adopted. Medications and Allergies Home Medications Medication Instructions Recorded Confirmed Type Cholestyramine/Aspartame 4 gm PO DAILY 05/14/17 09/12/23 History [Cholestyramine Light Packet] Nabumetone [Relafen] 500 mg PO BID 05/14/17 09/12/23 History Aspirin 81 mg PO DAILY 01/07/18 09/12/23 History Lutein 40 mg PO DAILY 09/04/19 09/12/23 History Ascorbic Acid [Vitamin C] 250 mg PO DAILY 03/03/21 09/12/23 History Solifenacin Succinate [Vesicare] 10 mg PO DAILY 09/07/21 09/12/23 History Krill/[place]-3/Dha/Epa/Lipids 1 each PO DAILY 10/20/21 09/12/23 History [Krill Oil 350 mg Softgel] Rosuvastatin Calcium 5 mg PO DAILY 12/11/22 09/12/23 History Cholecalciferol (Vitamin D3) 250 mcg PO DAILY 09/12/23 09/12/23 History [Vitamin D3 (125 MCG = 5,000 IU)] Gabapentin [Neurontin] 200 mg PO HS PRN 09/12/23 09/12/23 History Pyridoxine HCl (Vitamin B6) 100 mg PO DAILY 09/12/23 09/12/23 History [Vitamin B-6] Zinc Gluconate [Zinc] 50 mg PO DAILY 09/12/23 09/12/23 History amLODIPine BESYLATE 5 mg PO W/SUPPER 09/12/23 09/12/23 History modafiniL [Provigil] 100 mg PO DAILY PRN 09/12/23 09/12/23 History Allergies Allergy/AdvReac Type Severity Reaction Status Date / Time quinapril [From Accupril] Allergy Anaphylaxis Verified 09/12/23 10:27 rofecoxib [From Vioxx] Allergy kidneys Verified 09/12/23 10:27 shut down Sulfa (Sulfonamide Allergy Rash/Hives Verified 09/12/23 10:27 Antibiotics) Physical Examination - Knee left Appearance: effusion Effusion grade: grade 2 Valgus alignment in stance: 5 degrees Tenderness with palpation: anterior, lateral Pain: throughout ROM Gait: limping ROM: extension: -10 degrees ROM: flexion: 100 degrees Crepitus with motion: Yes Strength: extension: 5/5 Strength: flexion: 5/5 Patella exam: Q angle 10 degrees, lateral patella tracking Meniscal tests: lateral meniscal tests: positive, lateral joint line pain: positive Results The patient is a well-developed well-nourished female proximal a 5 foot 6, 210 pounds of endomorphic habitus. HEENT exam is nonfocal, neck is supple. She has painless passive motion of her left hip. Straight leg raise is negative. She's tender about the lateral joint line in the left knee. Collaterals were stable, Elena was negative, Joselito's elicits lateral pain. Her distal neurovascular exam appears intact in the left lower extremity. - Diagnostic results Knee x-ray: image reviewed (Views of the left knee obtained in the office show severe lateral and patellofemoral compartment osteoarthrosis with [id number]-[id number] changes and subchondral sclerosis.) Assessment and Plan Assessment: Left knee severe lateral and patellofemoral compartment osteoarthrosis History of DVTs Plan: Talked to the patient length regarding her condition along with treatment options. At this point she is quite limited having both pain and mechanical symptoms related to her left knee osteoarthrosis despite conservative measures. After a thorough discussion she opts to proceed with surgery. We'll plan to proceed with left total knee arthroplasty. We will institute DVT prophylaxis postoperatively.
[~2023-09-18 05:50] MED LIST changes: +ACETAMINOPHEN TAB 500 MG TAB PO PRN; -LACTATED RINGERS 1,000 ML IV SCH; +MELOXICAM 7.5 MG TAB PO PRN; +TRANEXAMIC 1,000 MG/100ML-NACL 1,000 MG in SALINE 1 100ML.BAG IVPB PRN
[2023-09-18] MEDS ORDERED: ONDANSETRON 4 MG/2 ML VIAL IVP ONE (06:12)
[2023-09-18] MEDS ORDERED: DEXAMETHASONE SOD PHOSPHATE 4 MG/ML 1 ML VIAL IV ONE (06:12)
[2023-09-18] MEDS ORDERED: MIDAZOLAM 2 MG/2 ML VIAL IVP ONE (07:12)
[2023-09-18] MEDS: LACTATED RINGERS 1,000 ML IV SCH ×2 (07:34→14:53)
--- NOTE | 2023-09-18 07:36 | P.ANPRN ---
Procedure Note - Anesthesia - Nerve Block Performed Left Adductor Canal Infusion Time Out Performed: Yes (0711) Date of Procedure: 09/18/23 Procedure Start Time: :11 Procedure Stop Time: : Location of Patient: PreOp Indication: Acute Post-Operative Pain, Requested by Surgeon Sedation Type: Sedate with meaningful contact maintained Preparation: Sterile Prep, Sterile Dressing Position: Supine Catheter: Indwelling Needle Types: Pajunk (20 mL of block solution containing 10 ML of 0.5% ropivacaine mixed with 10 ML of preservative-free normal saline) Needle Gauge: 18 (20 mL of block solution containing 10 ML of 0.5% ropivacaine mixed with 10 ML of preservative-free normal saline) Ultrasound used to visualize needle placement: Yes Ultrasound used to observe medication spread: Yes Injectate: 0.5% Ropivacaine (see comment for volume) Blood Aspirated: No Pain Paresthesia on Injection Noted: No Resistance on Injection: Normal Image Stored and Saved: Yes Events: Uneventful and Well Tolerated
--- NOTE | 2023-09-18 07:37 | P.ANPRN ---
Procedure Note - Anesthesia - Nerve Block Performed Left iPack Single Time Out Performed: Yes (0711) Date of Procedure: 09/18/23 Procedure Start Time: : Procedure Stop Time: : Location of Patient: PreOp Indication: Requested by Surgeon Sedation Type: Sedate with meaningful contact maintained Preparation: Sterile Prep, Sterile Dressing Position: Supine Catheter: None Needle Types: Pajunk Needle Gauge: 21 Ultrasound used to visualize needle placement: Yes Ultrasound used to observe medication spread: Yes Injectate: 0.5% Ropivacaine (see comment for volume) (20 mL of block solution containing 10 ML of 0.5% ropivacaine mixed with 10 ML of preservative-free normal saline) Blood Aspirated: No Pain Paresthesia on Injection Noted: No Resistance on Injection: Normal Image Stored and Saved: Yes Events: Uneventful and Well Tolerated
[2023-09-18] MEDS ORDERED: fentaNYL (PF) 50 MCG/ML 2 ML AMP ONE (07:48)
[2023-09-18] MEDS ORDERED: PHENYLEPHRINE-0.9% NACL SYG 1,000 MCG/10 ML SYRINGE ONE (07:48)
[2023-09-18] MEDS ORDERED: TRANEXAMIC 1,000 MG/100ML-NACL PREMIX BAG ONE (07:48)
[2023-09-18] MEDS ORDERED: SODIUM CHLORIDE 0.9% (PF) 10 ML VIAL ONE (07:48)
[2023-09-18] MEDS ORDERED: PROPOFOL 10 MG/ML 20 ML VIAL IV ONE (07:48)
[2023-09-18] MEDS ORDERED: ROPIVACAINE 5 MG/ML 30 ML VIAL ONE (07:48)
[2023-09-18] MEDS ORDERED: ceFAZolin 3,000 MG in SODIUM CHLORIDE 0.9% IRRIGATIO 3,000 ML IRRIGATION ONE (08:25)
[2023-09-18] MEDS ORDERED: LACTATED RINGERS 1,000 ML IV ONE (08:46)
[2023-09-18] MEDS ORDERED: HYDROcodone/APAP 5-325MG 1 EACH TAB PO PRN (09:32)
[2023-09-18] MEDS ORDERED: HYDROmorphone 0.5 MG/0.5 ML SYRINGE IVP PRN (09:32)
[2023-09-18] MEDS ORDERED: NALOXONE 0.4 MG/ML 1 ML VIAL IV PRN (09:32)
[2023-09-18] MEDS ORDERED: MAGNESIUM HYDROXIDE 2,400 MG/30 ML CUP PO PRN (09:32)
--- NOTE | 2023-09-18 09:55 | P.OP ---
Date of Procedure: 09/18/23 Preoperative Diagnosis: Left knee severe tricompartmental osteoarthrosis Postoperative Diagnosis: Same Procedure(s) Performed: Left total knee arthroplastycementedposterior stabilized Implants: Depuy Attune size 5 narrow cemented femoral component, size 4 cemented tibial component, 12 mm articular surface, 35 mm cemented patellar component. This is a posterior stabilized implant. Anesthesia: regional, spinal Surgeon: Arnaldo Canela Sld Inclusion Teacher #1: Danilo Sher Estimated Blood Loss (ml): 50 Pathology: none sent Condition: stable Disposition: PACU Indications for Procedure: The patient is a 78-year-old female who presents with progressive left knee pain secondary to osteoarthrosis despite conservative measures. A discussion of the risks and benefits of operative intervention versus continued conservative measures was made with the patient. She opted to proceed with surgery. Operative risks to include infection, neurovascular injury, development of blood clots, possible component loosening, possible component failure and need for subsequent procedures was discussed. Informed consent was obtained. Operative Findings: As below Description of Procedure: The patient was brought to the operating room, and after induction of spinal anesthesia the left lower extremity was prepped and draped in a normal fashion. The tourniquet was inflated to 270 mm marker. A longitudinal incision extending 3 finger breaths above the superior pole of patella extending to the medial aspect the tibial tubercle was then made. The skin and subcutaneous tissues were divided sharply. Electrocautery was used for hemostasis. A medial parapatellar arthrotomy was performed. The medial soft tissues to include the superficial and deep portions of the medial collateral ligament were elevated subperiosteally. The patella was everted. A portion of the retropatellar fat pad was excised sharply. The anterior cruciate ligament was sacrificed. Blunt retractors were placed. The lateral collateral and popliteus were elevated subperiosteally off the lateral femoral upper condyle to aid in soft tissue balancing. A starting hole was made in the distal femur 1 cm anterior to the posterior cruciate ligament origin. An intramedullary femoral guide was then inserted planning on 5 valgus distal cut with 9 mm distal resection. The cutting block was pinned in place. The distal cut was then made. The posterior referencing sizing guide was utilized. I felt size 5 narrow was most appropriate. 3 of external rotation was built into the system and verified off the trans-epicondylar axis and the posterior condyles. The cutting block was pinned in place. The anterior, posterior, and chamfer cuts then made. Bone fragments were removed. The intercondylar guide was placed and the notch cut was made with a sagittal saw. The bone block was removed in one fragment. The trial component was then placed. There is good anterior to posterior and medial to lateral fit. The distal peg holes were drilled. The trial component was removed. Attention was then paid towards preparing the proximal tibia. An extra medullary guide was utilized in line with the tibial shaft and second metatarsal distally. I planned on 6 mm resection from the medial compartment. The cutting block was pinned in place. The proximal tibial cut was then made. The bone was removed in one fragment. The remnants of the medial and lateral menisci were excised at the capsular junction with electrocautery. The tibia sized most appropriately at size 4. The trial femoral and tibial components were placed along with a 12 mm articular surface. I was able to obtain full flexion and extension with internal and external rotation. After several flexion and extension cycles, the tibial rotation was marked with electrocautery line with the medial one third of the tibial tubercle. Attention was then paid towards preparing the patella. A patella reamer was utilized taking stem to 14 mm of bone stock. A good flush cut was made. The patella sized most appropriately 35 mm. The peg holes were drilled. The trial components placed. I had good patellofemoral tracking with no hands technique. The trial components were then removed. The tibia was prepared in the appropriate rotation with appropriate drill and keel punch. The posterior osteophytes were removed with a curved osteotome. The flexion and extension gaps were checked and felt to be symmetric at 12 mm. A trial components were then removed. The bony surfaces were prepared with pulsatile lavage and dried. The tibial component was then cemented place was fully seated. Excess cement was removed. The femoral component cemented place and was fully seated. Excess cement was removed. The trial 12 mm articular surface was placed and the knee was put in full extension. The patella component was cemented place. After the cement had sufficiently hardened, the knee was again taken through a range of motion. Again I was able to obtain full flexion and extension with varus and valgus stress. The trial 12 mm articular surface was removed and the final one inserted. This was fully seated. Care was taken to avoid any soft tissue interposition. Pulsatile lavage was again utilized. The medial parapatellar arthrotomy was closed with #2 Ethibond suture. The tourniquet was deflated with approximately 60 minutes total tourniquet time. Final hemostasis was obtained with the cautery. There was minimal bleeding therefore a deep drain was not placed. The subcutaneous tissues were reapproximated with interrupted 2-0 Vicryl sutures. The skin was reapproximated with 3-0 subcuticular strata fix suture. Skin tape and adhesive was applied. A sterile dressing was applied. The patient was awoken from sedation and transferred to recovery room in good condition. Blood loss was estimated at 50 mL. No complications were incurred. Sponge and needle counts were correct at the end of the case. Danilo WANG assisted during the major components of this case to include exposure, bone resection, implantation, and closure.
[2023-09-18] MEDS ORDERED: ROPIVACAINE 1,100 MG, SODIUM CHLORIDE 0.9% 500 ML 330 ML, EMPTY PAIN BALL 1 EACH MISCELLANE PRN ×2 (10:27)
--- NOTE | 2023-09-18 10:29 | XR ---
EXAMINATION TYPE: XR knee limited LT DATE OF EXAM: 09/18/2023 10:18 AM CLINICAL INDICATION:Female, 78 years old with history of Evaluation for Postop abnormality and alignm ent; [facility] COMPARISON: 04/15/2012. TECHNIQUE: XR knee limited LT; examined in Frontal, lateral and oblique projections. FINDINGS: Status post total knee arthroplasty changes with hardware in appropriate alignment and in tact. No evidence of fracture. Subcutaneous lucencies and lucencies within the joint consistent with surgical changes. IMPRESSION: Status post total knee arthroplasty changes with hardware intact and appropriate alignment. No fractu res identified.
[2023-09-18] MEDS: HYDROmorphone 0.5 MG/0.5 ML SYRINGE IVP PRN ×2 (11:34→14:39)
[2023-09-18] MEDS: HYDROcodone/APAP 7.5-325MG 1 EACH TAB PO PRN ×2 (15:38→21:40)
[2023-09-18] MEDS ORDERED: GABAPENTIN 100 MG CAP PO PRN (16:29)
[2023-09-18] MEDS: PANTOPRAZOLE 40 MG TABLET PO SCH (16:58)
[2023-09-18] MEDS: amLODIPine 5 MG TAB PO SCH (16:58)
--- NOTE | 2023-09-18 17:58 | P.CONS ---
History of Present Illness - Reason for Consult Consult date: 09/18/23 Medical Management Requesting physician: Arnaldo Canela - History of Present Illness History of Presenting Illness: Patient is a very pleasant 78-year-old female with a past medical history of hypertension, hyperlipidemia, DVTs, GERD, chronic back pain, and osteoarthritis. She is currently admitted under orthopedic surgery team status post elective left total knee arthroplasty secondary to severe left knee tricompartmental osteoarthrosis. Surgical procedure was completed by Dr. Canela. We have been consulted for medical management outpatient hospitalization. Patient seen and fully evaluated in room 462 after completion of left total knee arthroplasty. Patient currently resting comfortably and states postoperative pain is currently controlled, she states initially it was burning like it was on fire bur after being given pain medication and ice pack she feels great. Patient denies having any postoperative nausea or vomiting and tolerating oral intake well. She reports urinating in post-operative period without difficulties. Patient denies having any headache, lightheadedness, dizziness, chest pain, palpitations, shortness of breath, or any other complaints at this time. Review of systems: Pertinent positives and negatives as discussed in HPI, a complete review of systems was performed and all other systems are negative. Physical exam: Vital signs reviewed and stable. General: Nontoxic, no distress and appears stated age. Derm: Skin warm and dry, normal coloration for ethnicity. Head: Atraumatic, normocephalic and symmetric. Eyes: EOMs intact, no lid lag, and anicteric sclera Mouth: no lip lesions, mucus membranes moist Cardiovascular: regular rate and rhythm with normal S1S2, no murmur, positive posterior tibial pulses bilaterally, and cap refill < 2 seconds. Lungs: Respirations even, regular, and unlabored on room air. Lungs CTA bilaterally, no rhonchi, no rales, no wheezing, and no accessory muscle usage. Abdominal: soft, nontender to palpation, no guarding, no appreciable organomegaly Ext: No gross muscle atrophy, no edema, no contractures. Movement and sensation intact. Postoperative dressing and Rex wrap in place left lower extremity/knee. Neuro: Speech clear, face symmetrical and CN II-XII grossly intact with no noted focal neuro deficits Psych: Alert and oriented to person, place, time, and situation. Appropriate and pleasant affect. Assessment and Plan of Care: Status post left knee arthroplasty Management per primary admitting orthopedic surgery team including DVT prophylaxis, pain management, wound/dressing management, weightbearing, and PT/OT. Currently DVT prophylaxis with Xarelto 10 mg daily.. Hypertension Monitor vital signs and continue daily medication regimen with amlodipine 5 mg daily. Hyperlipidemia Continue daily medication regimen with atorvastatin 10 mg daily. History of DVTs Patient has history of DVTs, she was placed on postsurgical DVT prophylaxis with Xarelto 10 mg daily. GERD GI prophylaxis with Protonix 40 mg twice daily with meals. Data reviewed: Vital signs reviewed. Blood pressure 168/80, heart rate 71, respiratory rate 17, temp 98.2F, SpO2 of 97% on room air. Preoperative labs reviewed showing hemoglobin of 12.3. We will follow up on postoperative labs, orders were placed for CBC, BMP, and magnesium for tomorrow morning. Thank you for allowing us to participate in the care of this pleasant patient. Do not hesitate to contact us with questions. Someone can be reached from the [facility] hospitalist group all hours of the day at [phone] or via [employer]. Patient was seen independently by Nurse Practitioner. This document was prepared using [employer] dictation software. Please allow for errors in web feeder while rare they do occur. Guillermo Fortune NP rendered care for this patient independently, reviewed the findings and plan as documented in the note above. I did not physically speak with or examine the patient on this date. Past Medical History Past Medical History: Deep Vein Thrombosis (DVT), GERD/Reflux, Hyperlipidemia, Hypertension, Musculoskeletal Disorder, Osteoarthritis (OA) Additional Past Medical History / Comment(s): Hx migraines, diverticulitis, IBS, kidney stones. Hx DVT's to bilateral legs in 2016. Back pain with sciatica. 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 History of Any Multi-Drug Resistant Organisms: None Reported Past Surgical History: Adenoidectomy, Cholecystectomy, Hernia Repair, Orthopedic Surgery, Tonsillectomy Additional Past Surgical History / Comment(s): Bilateral knee surgery, pain procedures, cataracts/lens implants, hernia repair X2(inguinal and ventral), vein stripping left leg, vein ablation right leg, ablation of nerves in back, major right shoulder surgery(rotator cuff, bone spur/calcifications removed, bone removed from scapula and clavicle)12/2022. Past Anesthesia/Blood Transfusion Reactions: Previous Problems w/ Anesthesia, Motion Sickness Additional Past Anesthesia/Blood Transfusion Reaction / Comm: "Could not wake me up"-only happened once many years ago. Adopted-no family hx known. Past Psychological History: No Psychological Hx Reported Smoking Status: Former smoker Past Alcohol Use History: None Reported Additional Past Alcohol Use History / Comment(s): Quit smoking 40 yrs ago, smoked for 5 yrs, up to 3 PPD. Past Drug Use History: None Reported - Past Family History Mother Family Medical History: Unable to Obtain Additional Family Medical History / Comment(s): Patient adopted. Medications and Allergies Home Medications Medication Instructions Recorded Confirmed Type Cholestyramine/Aspartame 4 gm PO DAILY 05/14/17 09/12/23 History [Cholestyramine Light Packet] Nabumetone [Relafen] 500 mg PO BID 05/14/17 09/12/23 History Aspirin 81 mg PO DAILY 01/07/18 09/12/23 History Lutein 40 mg PO DAILY 09/04/19 09/12/23 History Ascorbic Acid [Vitamin C] 250 mg PO DAILY 03/03/21 09/12/23 History Solifenacin Succinate [Vesicare] 10 mg PO DAILY 09/07/21 09/12/23 History Krill/[place]-3/Dha/Epa/Lipids 1 each PO DAILY 10/20/21 09/12/23 History [Krill Oil 350 mg Softgel] Rosuvastatin Calcium 5 mg PO DAILY 12/11/22 09/12/23 History Cholecalciferol (Vitamin D3) 250 mcg PO DAILY 09/12/23 09/12/23 History [Vitamin D3 (125 MCG = 5,000 IU)] Gabapentin [Neurontin] 200 mg PO HS PRN 09/12/23 09/12/23 History Pyridoxine HCl (Vitamin B6) 100 mg PO DAILY 09/12/23 09/12/23 History [Vitamin B-6] Zinc Gluconate [Zinc] 50 mg PO DAILY 09/12/23 09/12/23 History amLODIPine BESYLATE 5 mg PO W/SUPPER 09/12/23 09/12/23 History Allergies Allergy/AdvReac Type Severity Reaction Status Date / Time quinapril [From Accupril] Allergy Anaphylaxis Verified 09/18/23 06:21 rofecoxib [From Vioxx] Allergy kidneys Verified 09/18/23 06:21 shut down Sulfa (Sulfonamide Allergy Rash/Hives Verified 09/18/23 06:21 Antibiotics) Physical Exam Vitals: Vital Signs Temp Pulse Resp BP Pulse Ox 09/18/23 15:09 98.2 F 71 17 168/80 97 09/18/23 13:30 79 16 148/72 09/18/23 12:30 73 16 155/75 100 09/18/23 12:00 64 16 147/75 100 09/18/23 11:28 63 16 147/72 97 09/18/23 11:00 62 16 157/71 97 09/18/23 10:45 65 16 152/72 99 09/18/23 10:30 62 16 144/66 99 09/18/23 10:24 63 16 144/66 99 09/18/23 10:09 58 L 16 144/74 100 09/18/23 09:54 97.0 F L 64 16 145/73 99 09/18/23 06:33 98.3 F 71 16 134/64 96 Intake and Output 09/18/23 09/18/23 09/18/23 06:59 14:59 22:59 Intake Total 1751 Output Total 150 Balance 1601 Intake: IV 1751 Output: Urine 100 Estimated Blood Loss 50 Other: # Voids 1 Weight 83.3 kg 83.3 kg
[2023-09-18] MEDS: SENNOSIDES-DOCUSATE SODIUM 1 EACH TAB PO SCH (20:00)
[2023-09-19] MEDS: HYDROcodone/APAP 7.5-325MG 1 EACH TAB PO PRN ×3 (03:37→17:07)
[2023-09-19] MEDS: PANTOPRAZOLE 40 MG TABLET PO SCH ×2 (06:29→17:07)
--- NOTE | 2023-09-19 06:47 | P.PN ---
Progress Note - Text Progress Note Date: 09/19/23 Ms. Dorado was seen and evaluated at bedside. Status post postoperative day 1 for left total knee arthroplasty patient had adductor canal catheter for postop pain control. Patient rated pain at rest 3-4 out of 10 in severity. Patient describes pain is aching, throbbing type on the sides of the knee and back of the knee. Patient started walking with support. With activity patient pain levels are 6-7 out of 10 in severity. With the help of oral pain medications pain levels are tolerable. Patient denied any weakness/ numbness in lower extremities. patient denied any fever, pain over the catheter site. Physical exam: Patient vital signs stable Patient is alert awake oriented 3 responding to all questions appropriately Examination of the catheter site showed dressing intact, no leaking fluid around the catheter, no redness, no tenderness over the catheter insertion area. plan: status post postoperative day 1 for left total knee arthroplasty with adductor canal catheter for pain control. Patient was discussed to continue the medication at the rate of 8 mL per hour until the pump is completely empty and instructed the patient how to discontinue the catheter.
[2023-09-19 08:51] LABS: Basophils # (A) 0.05 X 10*3/uL (0.00-0.10); Basophils % (A) 0.6 %; Eosinophils # (A) 0.06 X 10*3/uL (0.04-0.35); Eosinophils % (A) 0.7 %; HCT 31.3 % (37.2-46.3); HGB 10.4 g/dL (12.0-15.0); Lymphocytes # (A) 1.43 X 10*3/uL (0.90-5.00); MCH 30.4 pg (27.0-32.0); MCHC 33.2 g/dL (32.0-37.0); MCV 91.5 FL (80.0-97.0); Mean Platelet Volume 10.3 FL (9.5-12.2); Monocytes # (A) 1.11 X 10*3/uL (0.20-1.00); Monocytes % (A) 12.4 %; NRBC Per 100 WBC 0 X 10*3/uL (0.00-0.01); Neutrophils # (A) 6.23 X 10*3/uL (1.80-7.70); Neutrophils % (A) 69.6 %; Platelet Count 250 X 10*3/uL (140-440); RBC 3.42 X 10*6/uL (4.10-5.20); RDW 13.2 % (11.5-14.5); WBC 8.94 X 10*3/uL (4.50-10.00)
[2023-09-19] MEDS: PYRIDOXINE 50 MG TAB PO SCH (08:52)
[2023-09-19] MEDS: TROSPIUM CHLORIDE 20 MG TABLET PO SCH ×2 (08:52→21:07)
[2023-09-19] MEDS: ATORVASTATIN 10 MG TAB PO SCH (08:53)
[2023-09-19] MEDS: RIVAROXABAN 10 MG TAB PO SCH (08:53)
[2023-09-19] MEDS: ASCORBIC ACID 500 MG TAB PO SCH (08:53)
[2023-09-19] MEDS: ZINC SULFATE 220 MG CAP PO SCH (08:53)
[2023-09-19] MEDS: CHOLECALCIFEROL 125 MCG (5000 IU) TABLET PO SCH (08:53)
[2023-09-19 09:03] LABS: BUN/Creat Ratio 19.15 Ratio (12.00-20.00); Blood Urea Nitrogen 24.9 mg/dL (9.0-27.0); Calcium 8.6 mg/dL (8.7-10.3); Carbon Dioxide 24.3 mmol/L (21.6-31.8); Chloride 106 mmol/L (96-109); Glucose 94 mg/dL (70-110); Magnesium 1.8 mg/dL (1.5-2.4); Potassium 3.8 mmol/L (3.5-5.5); Sodium 139 mmol/L (135-145)
--- NOTE | 2023-09-19 09:53 | P.PN ---
Subjective Progress Note Date: 09/19/23 Principal diagnosis: Left knee osteoarthritis Patient was seen at bedside this morning sitting up in chair with legs elevated and dressing present left knee. Patient says she just finished working with physical therapy. Patient says she walked around the room a little bit using walker and did get a little bit lightheaded. Patient says this is not new. Patient says this is just been going on since surgery. Patient says she does live at home with her and does take care of her . Patient says she is hoping to go home upon discharge from hospital. She says she has urinated several times since surgery yesterday. Patient says she has not had a bowel movement yet, however, patient says she has been passing gas. Patient denies chest pain, fever, shortness breath, nausea, vomiting, change in vision, loss of bowel/bladder control. Objective - Vital Signs Vital signs: Vital Signs Temp 98.0 F 09/19/23 07:23 Pulse 86 09/19/23 07:23 Resp 19 09/19/23 07:23 BP 146/78 09/19/23 07:23 Pulse Ox 96 09/19/23 07:23 FiO2 Intake & Output 09/18/23 09/19/23 09/19/23 18:59 06:59 18:59 Intake Total 1751 Output Total 150 Balance 1601 Weight 83.3 kg Intake: IV 1751 Output: Urine 100 Estimated Blood Loss 50 Other: # Voids 2 3 - Exam Left knee: Incision is clean, dry, and intact. The exofin fusion tape is in good condition. There is minimal soft tissue swelling and ecchymosis surrounding the medial and lateral aspects of the incision. Calf is soft, no tenderness with palpation. Plantar flexion, dorsiflexion, EHL, FHL are intact. Sensory exam to light touch throughout the extremity is intact, dorsal pedis pulses 2+. - Labs CBC & Chem 7: 09/19/23 06:09 09/19/23 06:09 Labs: Abnormal Lab Results - Last 24 Hours (Table) 09/19/23 09/19/23 Range/Units 06:09 06:09 RBC 3.42 L (4.10-5.20) X 10*6/uL Hgb 10.4 L (12.0-15.0) g/dL Hct 31.3 L (37.2-46.3) % Immature Gran # 0.06 H (0.00-0.04) X 10*3/uL Monocytes # 1.11 H (0.20-1.00) X 10*3/uL Est GFR (CKD-EPI) 42 L (>=60) Calcium 8.6 L (8.7-10.3) mg/dL Assessment and Plan Assessment: 1. Left knee osteoarthritis - Postoperative day 1 status post left total knee arthroplasty Plan: 1. Left knee osteoarthritis - left total knee arthroplasty performed yesterday, 09/18/2023. Patient stable at bedside this morning. Patient was little bit lightheaded when working with physical therapy. Patient was unable to do stairs. Plan is for patient to stay one more night for additional pain control and therapy. Pending improvement with therapy and performing stairs tomorrow plan for discharge home with health services. Possible discharge to rehab if patient does not improve tomorrow. 2. Appreciate medical management 3. Pain management 4. DVT prophylaxis - Xarelto 5. GI prophylaxis - senna 6. PT/OT - weightbearing as tolerated with walker 7. Encourage incentive spirometer use 8. Discharge planning - home with health services versus rehab tomorrow versus Sunday Time with Patient: Less than 30
[2023-09-19] MEDS: CHOLESTYRAMINE (WITH SUGAR) 4 GM PACKET PO SCH (12:24)
--- NOTE | 2023-09-19 14:38 | P.PN ---
Subjective Progress Note Date: 09/19/23 Patient is a 78-year-old female with a PMH of HTN, HLDA, h/o DVT, GERD, OA who was admitted for an elective left total knee replacement. Underwent surgery 09/18. [facility] consulted for medical management. 09/19 Patient was seen and examined. She reports lightheadedness when standing up. CBC Hg 10.4 Hct 31.3. BMP GFR 42, Ca 8.6. Mag 1.8. Physical examination: Vital signs reviewed General: non toxic, no distress, appears at stated age, normal weight Derm: no unusual rashes/lesions, warm Head: atraumatic, normocephalic, symmetric Eyes: EOMI, no lid lag, anicteric sclera ENT: Nose and ears atraumatic Neck: No cervical lymphadenopathy, trachea midline, supple Cardiovascular: S1S2 reg, no murmur Lungs: CTA bilateral, no rhonchi, no rales, no accessory muscle use Ext: no gross muscle atrophy, no contractures, Neuro: no gross focal neuro deficits Psych: Alert, oriented, appropriate affect Based on my assessment of this patient, this patient meets a moderate complexity level of care. Patient has a chronic diagnosis of HTN, HLDA, h/o DVT, GERD. Lightheadedness: Obtain orthostats. HTN: Amlodipine 5 mg PO QD. HLDA: Lipitor 10 mg PO QD. GERD: Protonix 40 mg PO BID. CODE STATUS: FULL CODE DVT Prophylaxis: Xarelto. GI Prophylaxis: Protonix PO Designated medical POA if patient is not able to make medical decisions for themselves: I have reviewed the following functional consultant notes: Ortho note. Anesthesia note. I have reviewed the results of the following tests: BMP, CBC, Mag. I have ordered the following tests: I have discussed the care of this patient with the following independent historian: Family member at bedside. Case management. RN. I have independently interpreted the following test below: I have discussed the management of this patient with the following physician: Objective - Vital Signs Vital signs: Vital Signs Temp 98.7 F 09/19/23 14:00 Pulse 89 09/19/23 14:00 Resp 19 09/19/23 14:00 BP 137/67 09/19/23 14:00 Pulse Ox 95 09/19/23 14:00 FiO2 Intake & Output 09/18/23 09/19/2324 18:59 06:59 18:59 Intake Total 1751 Output Total 150 Balance 1601 Weight 83.3 kg Intake: IV 1751 Output: Urine 100 Estimated Blood Loss 50 Other: Voiding Method Toilet # Voids 2 3 - Labs CBC & Chem 7: 09/19/23 06:09 09/19/23 06:09 Labs: Abnormal Lab Results - Last 24 Hours (Table) 09/19/23 09/19/23 Range/Units 06:09 06:09 RBC 3.42 L (4.10-5.20) X 10*6/uL Hgb 10.4 L (12.0-15.0) g/dL Hct 31.3 L (37.2-46.3) % Immature Gran # 0.06 H (0.00-0.04) X 10*3/uL Monocytes # 1.11 H (0.20-1.00) X 10*3/uL Est GFR (CKD-EPI) 42 L (>=60) Calcium 8.6 L (8.7-10.3) mg/dL
[2023-09-19] MEDS: HYDROmorphone 0.5 MG/0.5 ML SYRINGE IVP PRN ×2 (15:15→21:20)
[2023-09-19] MEDS: hydrOXYzine pamoate 25 MG CAP PO PRN (15:15)
[2023-09-19] MEDS: amLODIPine 5 MG TAB PO SCH (17:07)
[2023-09-19] MEDS: SENNOSIDES-DOCUSATE SODIUM 1 EACH TAB PO SCH (21:07)
[2023-09-20] MEDS: HYDROcodone/APAP 7.5-325MG 1 EACH TAB PO PRN ×4 (00:41→23:40)
[2023-09-20] MEDS: LACTATED RINGERS 1,000 ML IV SCH (02:38)
[2023-09-20] MEDS: PANTOPRAZOLE 40 MG TABLET PO SCH ×2 (06:46→16:55)
[2023-09-20] MEDS: ZINC SULFATE 220 MG CAP PO SCH (09:49)
[2023-09-20] MEDS: PYRIDOXINE 50 MG TAB PO SCH (09:50)
[2023-09-20] MEDS: CHOLECALCIFEROL 125 MCG (5000 IU) TABLET PO SCH (09:50)
[2023-09-20] MEDS: ASCORBIC ACID 500 MG TAB PO SCH (09:50)
[2023-09-20] MEDS: ATORVASTATIN 10 MG TAB PO SCH (09:50)
[2023-09-20] MEDS: RIVAROXABAN 10 MG TAB PO SCH (09:50)
[2023-09-20] MEDS: TROSPIUM CHLORIDE 20 MG TABLET PO SCH ×2 (09:50→20:12)
[2023-09-20] MEDS: hydrOXYzine pamoate 25 MG CAP PO PRN (10:20)
[2023-09-20] MEDS ORDERED: ONDANSETRON 4 MG/2 ML VIAL IVP PRN (10:49)
--- NOTE | 2023-09-20 10:56 | P.PN ---
Subjective Progress Note Date: 09/20/23 Patient is a 78-year-old female with a PMH of HTN, HLDA, h/o DVT, GERD, OA who was admitted for an elective left total knee replacement. Underwent surgery 09/18. [facility] consulted for medical management. 09/19 Patient was seen and examined. She reports lightheadedness when standing up. CBC Hg 10.4 Hct 31.3. BMP GFR 42, Ca 8.6. Mag 1.8. 09/20 Patient was seen and examined. She reports uncontrolled pain in her left knee with ambulation. Feeling nauseated. Lightheadedness has improved, described more like vertigo. She does get vertigo at time which usually self-resolves. PT and OT evaluated, plans for SNF, will need 3 midnight stay. Orthostats not done. Physical examination: Vital signs reviewed General: non toxic, no distress, appears at stated age, normal weight Derm: no unusual rashes/lesions, warm Head: atraumatic, normocephalic, symmetric Eyes: EOMI, no lid lag, anicteric sclera ENT: Nose and ears atraumatic Neck: No cervical lymphadenopathy, trachea midline, supple Cardiovascular: S1S2 reg, no murmur Lungs: CTA bilateral, no rhonchi, no rales, no accessory muscle use Ext: no gross muscle atrophy, no contractures, Neuro: no gross focal neuro deficits Psych: Alert, oriented, appropriate affect Based on my assessment of this patient, this patient meets a moderate complexity level of care. Patient has a chronic diagnosis of HTN, HLDA, h/o DVT, GERD. Lightheadedness: Obtain orthostats. HTN: Amlodipine 5 mg PO QD. HLDA: Lipitor 10 mg PO QD. GERD: Protonix 40 mg PO BID. CODE STATUS: FULL CODE DVT Prophylaxis: Xarelto. GI Prophylaxis: Protonix PO Designated medical POA if patient is not able to make medical decisions for themselves: I have reviewed the following school plant consultant notes: Ortho note. Anesthesia note. I have reviewed the results of the following tests: I have ordered the following tests: I have discussed the care of this patient with the following independent historian: Family member at bedside. Case management. RN. I have independently interpreted the following test below: I have discussed the management of this patient with the following physician: Objective - Vital Signs Vital signs: Vital Signs Temp 99.2 F 01/18/24 07:04 Pulse 89 09/20/23 07:04 Resp 19 09/20/23 07:04 BP 146/79 09/20/23 07:04 Pulse Ox 93 L 09/20/23 07:04 FiO2 Intake & Output 09/19/23 09/20/23 09/20/23 18:59 06:59 18:59 Other: Voiding Method Toilet # Voids 5 1 - Labs CBC & Chem 7: 09/19/23 06:09 09/19/23 06:09
--- NOTE | 2023-09-20 11:39 | P.PN ---
Subjective Progress Note Date: 09/20/23 Principal diagnosis: Status post left total knee arthroplasty Patient evaluated at bedside, she is resting in a hospital chair. I discussed with therapy prior to seeing the patient, she did not do very well today. She continues to have some vertigo type symptoms. The nausea and vomiting has improved. She denies headaches, chest pain or shortness of breath at this time. plan at this time is for subacute rehab for discharge. Objective - Vital Signs Vital signs: Vital Signs Temp 99.2 F 09/20/23 07:04 Pulse 89 09/20/23 07:04 Resp 19 09/20/23 07:04 BP 146/79 09/20/23 07:04 Pulse Ox 93 L 09/20/23 07:04 FiO2 Intake & Output 09/19/23 09/20/23 09/20/23 18:59 06:59 18:59 Other: Voiding Method Toilet # Voids 5 1 1 - Exam Left lower extremity: Incision is clean, dry, and intact. The exofin fusion tape is in good c ondition. There is minimal soft tissue swelling and ecchymosis surrounding the medial and lateral aspects of the incision. Calf is soft, no tenderness with palpation. Plantar flexion, dorsiflexion, EHL, FHL are intact. Sensory exam to light touch throughout the extremity is intact, dorsal pedis pulses 2+. - Labs CBC & Chem 7: 09/19/23 06:09 09/19/23 06:09 Assessment and Plan Assessment: Postoperative day #2 status post left total knee arthroplasty Plan: Pain control, continue current medications DVT prophylaxis, continue current medications PT/OT, continue weight-bear as tolerated with walker Encourage incentive spirometer Wound care discussed Other center medical director recommendations appreciated Discharge planning: Planning for subacute rehab, discuss his case management she is a 3 midnight stay which will be Sunday, this be discharged to subacute rehab on Sunday Time with Patient: Less than 30
[2023-09-20] MEDS: CHOLESTYRAMINE (WITH SUGAR) 4 GM PACKET PO SCH (11:51)
[2023-09-20] MEDS: amLODIPine 5 MG TAB PO SCH (16:55)
[2023-09-20] MEDS: SENNOSIDES-DOCUSATE SODIUM 1 EACH TAB PO SCH (20:12)
[2023-09-21] MEDS: LACTATED RINGERS 1,000 ML IV SCH (02:51)
[2023-09-21] MEDS: HYDROcodone/APAP 7.5-325MG 1 EACH TAB PO PRN ×3 (07:50→20:36)
[2023-09-21] MEDS: ZINC SULFATE 220 MG CAP PO SCH (07:51)
[2023-09-21] MEDS: PANTOPRAZOLE 40 MG TABLET PO SCH ×2 (07:51→16:34)
[2023-09-21] MEDS: RIVAROXABAN 10 MG TAB PO SCH (07:52)
[2023-09-21] MEDS: ATORVASTATIN 10 MG TAB PO SCH (07:52)
[2023-09-21] MEDS: CHOLECALCIFEROL 125 MCG (5000 IU) TABLET PO SCH (07:52)
[2023-09-21] MEDS: ASCORBIC ACID 500 MG TAB PO SCH (07:52)
[2023-09-21] MEDS: PYRIDOXINE 50 MG TAB PO SCH (07:53)
[2023-09-21] MEDS: TROSPIUM CHLORIDE 20 MG TABLET PO SCH ×2 (07:53→20:37)
[2023-09-21 10:06] LABS: Basophils # (A) 0.1 k/uL (0-0.2); Basophils % (A) 1 %; Eosinophils # (A) 0.5 k/uL (0-0.7); Eosinophils % (A) 6 %; HCT 34.1 % (34.0-46.0); Lymphocytes # (A) 1.8 k/uL (1.0-4.8); Lymphocytes % (A) 21 %; MCHC 32.4 g/dL (31.0-37.0); MCV 95.8 fL (80.0-100.0); Mean Platelet Volume 8.3; Monocytes # (A) 0.8 k/uL (0-1.0); Monocytes % (A) 10 %; Neutrophils % (A) 60 %; Platelet Count 234 k/uL (150-450); RBC 3.56 m/uL (3.80-5.40); RDW 13.4 % (11.5-15.5); WBC 8.3 k/uL (3.8-10.6)
[2023-09-21] MEDS: CHOLESTYRAMINE (WITH SUGAR) 4 GM PACKET PO SCH (11:22)
[2023-09-21] MEDS ORDERED: MECLIZINE 25 MG TAB PO PRN (12:08)
--- NOTE | 2023-09-21 12:09 | P.PN ---
Subjective Progress Note Date: 09/21/23 Patient is a 78-year-old female with a PMH of HTN, HLDA, h/o DVT, GERD, OA who was admitted for an elective left total knee replacement. Underwent surgery 09/18. [facility] consulted for medical management. 09/19 Patient was seen and examined. She reports lightheadedness when standing up. CBC Hg 10.4 Hct 31.3. BMP GFR 42, Ca 8.6. Mag 1.8. 09/20 Patient was seen and examined. She reports uncontrolled pain in her left knee with ambulation. Feeling nauseated. Lightheadedness has improved, described more like vertigo. She does get vertigo at time which usually self-resolves. PT and OT evaluated, plans for SNF, will need 3 midnight stay. Orthostats not done. 09/21 Patient was seen and examined. Working a little bit better with PT and OT today. Had one episode of N/V. Does not feel dizzy right now. Reports a history of vertigo, usually relieved with Dramamine. Plans for SNF on Sunday depending on progression. Physical examination: Vital signs reviewed General: non toxic, no distress, appears at stated age, normal weight Derm: no unusual rashes/lesions, warm Head: atraumatic, normocephalic, symmetric Eyes: EOMI, no lid lag, anicteric sclera ENT: Nose and ears atraumatic Neck: No cervical lymphadenopathy, trachea midline, supple Cardiovascular: S1S2 reg, no murmur Lungs: CTA bilateral, no rhonchi, no rales, no accessory muscle use Ext: no gross muscle atrophy, no contractures, Neuro: no gross focal neuro deficits Psych: Alert, oriented, appropriate affect Based on my assessment of this patient, this patient meets a moderate complexity level of care. Patient has a chronic diagnosis of HTN, HLDA, h/o DVT, GERD. Vertigo: Meclizine 25 mg PO BID PRN. Zofran 4 mg IV Q6H PRN for N/V. HTN: Amlodipine 5 mg PO QD. HLDA: Lipitor 10 mg PO QD. GERD: Protonix 40 mg PO BID. CODE STATUS: FULL CODE DVT Prophylaxis: Xarelto. GI Prophylaxis: Protonix PO Designated medical POA if patient is not able to make medical decisions for themselves: I have reviewed the following planning consultant notes: Ortho note. I have reviewed the results of the following tests: I have ordered the following tests: I have discussed the care of this patient with the following independent historian: I have independently interpreted the following test below: I have discussed the management of this patient with the following physician: Objective - Vital Signs Vital signs: Vital Signs Temp 97.9 F 09/21/23 06:53 Pulse 86 09/21/23 06:53 Resp 19 09/21/23 06:53 BP 134/77 09/21/23 06:53 Pulse Ox 97 09/21/23 06:53 FiO2 Intake & Output 09/20/23 09/21/23 09/21/23 18:59 06:59 18:59 Intake Total 450 Balance 450 Intake: Oral 450 Other: # Voids 5 2 1 - Labs CBC & Chem 7: 09/21/23 05:53 09/19/23 06:09 Labs: Abnormal Lab Results - Last 24 Hours (Table) 09/21/23 Range/Units 05:53 RBC 3.56 L (3.80-5.40) m/uL Hgb 11.0 L (11.4-16.0) gm/dL
--- NOTE | 2023-09-21 12:12 | P.PN ---
Subjective Progress Note Date: 09/21/23 Principal diagnosis: Status post left total knee arthroplasty Patient evaluated at bedside, she is resting in a hospital bed. She denies headaches, chest pain or shortness of breath at this time. Plan at this time is for subacute rehab for discharge. Objective - Vital Signs Vital signs: Vital Signs Temp 97.9 F 09/21/23 06:53 Pulse 86 09/21/23 06:53 Resp 19 09/21/23 06:53 BP 134/77 09/21/23 06:53 Pulse Ox 97 09/21/23 06:53 FiO2 Intake & Output 09/20/23 09/21/23 09/21/23 18:59 06:59 18:59 Intake Total 450 Balance 450 Intake: Oral 450 Other: # Voids 5 2 1 - Exam Left lower extremity: Incision is clean, dry, and intact. The exofin fusion tape is in good condition. There is minimal soft tissue swelling and ecchymosis surrounding the medial and lateral aspects of the incision. Calf is soft, no tenderness with palpation. Plantar flexion, dorsiflexion, EHL, FHL are intact. Sensory exam to light touch throughout the extremity is intact, dorsal pedis pulses 2+. - Labs CBC & Chem 7: 09/21/23 05:53 09/19/23 06:09 Labs: Abnormal Lab Results - Last 24 Hours (Table) 09/21/23 Range/Units 05:53 RBC 3.56 L (3.80-5.40) m/uL Hgb 11.0 L (11.4-16.0) gm/dL Assessment and Plan Assessment: Postoperative day #3 status post left total knee arthroplasty Plan: Pain control, continue current medications DVT prophylaxis, continue current medications PT/OT, continue weight-bear as tolerated with walker Encourage incentive spirometer Wound care discussed Other medical insurance coder recommendations appreciated Discharge planning: Planning for subacute rehab, discuss his case management she is a 3 midnight stay which will be Sunday, this be discharged to subacute rehab on Sunday Time with Patient: Less than 30
[2023-09-21] MEDS: amLODIPine 5 MG TAB PO SCH (16:34)
[2023-09-21] MEDS: SENNOSIDES-DOCUSATE SODIUM 1 EACH TAB PO SCH (20:36)
[2023-09-22] MEDS: LACTATED RINGERS 1,000 ML IV SCH (00:43)
[2023-09-22] MEDS: PANTOPRAZOLE 40 MG TABLET PO SCH ×2 (06:14→17:32)
[2023-09-22] MEDS: HYDROcodone/APAP 7.5-325MG 1 EACH TAB PO PRN ×3 (06:14→19:54)
--- NOTE | 2023-09-22 09:31 | P.PN ---
Subjective Progress Note Date: 09/22/23 Principal diagnosis: Left knee osteoarthritis Patient says she is seeing improvement in pain in the knee. She says she is looking forward to going to rehab on Sunday. Patient says she has urinated daily since surgery. Patient is looking forward to working with therapy today. Patient denies chest pain, fever, shortness breath, nausea, vomiting, change in vision, loss of bowel/bladder control. Objective - Vital Signs Vital signs: Vital Signs Temp 98.0 F 09/22/23 08:00 Pulse 92 09/22/23 08:00 Resp 16 09/22/23 08:00 BP 119/76 09/22/23 08:00 Pulse Ox 96 09/22/23 08:00 FiO2 Intake & Output 09/21/23 09/22/23 09/22/23 18:59 06:59 18:59 Intake Total 1750 Balance 1750 Intake: Oral 1750 Other: # Voids 1 4 - Exam Left knee: Incision is clean, dry, and intact. The exofin fusion tape is in good condi tion. There is minimal soft tissue swelling and ecchymosis surrounding the medial and lateral aspects of the incision. Calf is soft, no tenderness with palpation. Plantar flexion, dorsiflexion, EHL, FHL are intact. Sensory exam to light touch throughout the extremity is intact, dorsal pedis pulses 2+. - Labs CBC & Chem 7: 09/21/23 05:53 09/19/23 06:09 Labs: Abnormal Lab Results - Last 24 Hours (Table) 09/21/23 Range/Units 05:53 RBC 3.56 L (3.80-5.40) m/uL Hgb 11.0 L (11.4-16.0) gm/dL Assessment and Plan Assessment: 1. Left knee osteoarthritis - Postoperative day 4 status post left total knee arthroplasty Plan: 1. Left knee osteoarthritis - left total knee arthroplasty performed 09/18/2023. Patient stable at bedside this morning. Continue working with therapy daily. pain Medication as needed. Discharge to rehab Sunday. 2. Appreciate medical management 3. Pain management - [place] 4. DVT prophylaxis - Xarelto 5. GI prophylaxis - senna 6. PT/OT - weightbearing as tolerated with walker 7. Encourage incentive spirometer use 8. Discharge planning - to rehab on Sunday Time with Patient: Less than 30
[2023-09-22] MEDS: ASCORBIC ACID 500 MG TAB PO SCH (09:39)
[2023-09-22] MEDS: PYRIDOXINE 50 MG TAB PO SCH (09:40)
[2023-09-22] MEDS: TROSPIUM CHLORIDE 20 MG TABLET PO SCH ×2 (09:40→19:54)
[2023-09-22] MEDS: CHOLECALCIFEROL 125 MCG (5000 IU) TABLET PO SCH (09:40)
[2023-09-22] MEDS: ATORVASTATIN 10 MG TAB PO SCH (09:40)
[2023-09-22] MEDS: ZINC SULFATE 220 MG CAP PO SCH (09:40)
[2023-09-22] MEDS: RIVAROXABAN 10 MG TAB PO SCH (09:40)
--- NOTE | 2023-09-22 10:53 | P.PN ---
Subjective Progress Note Date: 09/22/23 Patient is a 78-year-old female with a PMH of HTN, HLDA, h/o DVT, GERD, OA who was admitted for an elective left total knee replacement. Underwent surgery 09/18. [facility] consulted for medical management. 09/19 Patient was seen and examined. She reports lightheadedness when standing up. CBC Hg 10.4 Hct 31.3. BMP GFR 42, Ca 8.6. Mag 1.8. 09/20 Patient was seen and examined. She reports uncontrolled pain in her left knee with ambulation. Feeling nauseated. Lightheadedness has improved, described more like vertigo. She does get vertigo at time which usually self-resolves. PT and OT evaluated, plans for SNF, will need 3 midnight stay. Orthostats not done. 09/21 Patient was seen and examined. Working a little bit better with PT and OT today. Had one episode of N/V. Does not feel dizzy right now. Reports a history of vertigo, usually relieved with Dramamine. Plans for SNF on Sunday depending on progression. CBC Hg 11. 09/22 Patient was seen and examined. Able to do stairs and take a shower this morning. Nausea but no vomiting. Vertigo improved. General: non toxic, no distress, appears at stated age, normal weight Derm: no unusual rashes/lesions, warm Head: atraumatic, normocephalic, symmetric Eyes: EOMI, no lid lag, anicteric sclera ENT: Nose and ears atraumatic Neck: No cervical lymphadenopathy, trachea midline, supple Cardiovascular: S1S2 reg, no murmur Lungs: CTA bilateral, no rhonchi, no rales, no accessory muscle use Ext: no gross muscle atrophy, no contractures, Neuro: no gross focal neuro deficits Psych: Alert, oriented, appropriate affect Based on my assessment of this patient, this patient meets a moderate complexity level of care. Patient has a chronic diagnosis of HTN, HLDA, h/o DVT, GERD. Vertigo: Meclizine 25 mg PO BID PRN. Zofran 4 mg IV Q6H PRN for N/V. HTN: Amlodipine 5 mg PO QD. HLDA: Lipitor 10 mg PO QD. GERD: Protonix 40 mg PO BID. CODE STATUS: FULL CODE DVT Prophylaxis: Xarelto. GI Prophylaxis: Protonix PO Designated medical POA if patient is not able to make medical decisions for themselves: I have reviewed the following applications consultant notes: Ortho note. I have reviewed the results of the following tests: I have ordered the following tests: I have discussed the care of this patient with the following independent historian: I have independently interpreted the following test below: I have discussed the management of this patient with the following physician: Objective - Vital Signs Vital signs: Vital Signs Temp 98.1 F 09/22/23 02:56 Pulse 88 09/22/23 02:56 Resp 21 09/22/23 02:56 BP 122/79 09/22/23 02:56 Pulse Ox 93 L 09/22/23 02:56 FiO2 Intake & Output 09/21/23 09/22/23 09/22/23 18:59 06:59 18:59 Intake Total 1750 Balance 1750 Intake: Oral 1750 Other: # Voids 1 4 - Labs CBC & Chem 7: 09/21/23 05:53 09/19/23 06:09 Labs: Abnormal Lab Results - Last 24 Hours (Table) 09/21/23 Range/Units 05:53 RBC 3.56 L (3.80-5.40) m/uL Hgb 11.0 L (11.4-16.0) gm/dL
[2023-09-22] MEDS: CHOLESTYRAMINE (WITH SUGAR) 4 GM PACKET PO SCH (11:28)
[2023-09-22] MEDS: amLODIPine 5 MG TAB PO SCH (17:32)
[2023-09-22] MEDS: SENNOSIDES-DOCUSATE SODIUM 1 EACH TAB PO SCH (19:53)
[2023-09-23] MEDS: HYDROcodone/APAP 7.5-325MG 1 EACH TAB PO PRN ×4 (01:02→20:10)
[2023-09-23] MEDS: LACTATED RINGERS 1,000 ML IV SCH (01:58)
[2023-09-23] MEDS: PANTOPRAZOLE 40 MG TABLET PO SCH ×2 (06:33→17:32)
[2023-09-23] MEDS: ASCORBIC ACID 500 MG TAB PO SCH (09:53)
[2023-09-23] MEDS: ZINC SULFATE 220 MG CAP PO SCH (09:54)
[2023-09-23] MEDS: PYRIDOXINE 50 MG TAB PO SCH (09:54)
[2023-09-23] MEDS: ATORVASTATIN 10 MG TAB PO SCH (09:54)
[2023-09-23] MEDS: RIVAROXABAN 10 MG TAB PO SCH (09:54)
[2023-09-23] MEDS: TROSPIUM CHLORIDE 20 MG TABLET PO SCH ×2 (09:54→20:10)
[2023-09-23] MEDS: CHOLECALCIFEROL 125 MCG (5000 IU) TABLET PO SCH (09:54)
--- NOTE | 2023-09-23 10:47 | P.PN ---
Subjective Progress Note Date: 09/23/23 Principal diagnosis: Left knee osteoarthritis Patient says she is seeing improvement in pain in the knee. She says she is looking forward to going to rehab on Sunday. Patient says she has urinated daily since surgery. Patient is looking forward to working with therapy today. Patient denies chest pain, fever, shortness breath, nausea, vomiting, change in vision, loss of bowel/bladder control. Objective - Vital Signs Vital signs: Vital Signs Temp 97.8 F 09/23/23 08:00 Pulse 72 09/23/23 08:00 Resp 16 09/23/23 08:00 BP 125/79 09/23/23 08:00 Pulse Ox 93 L 09/23/23 08:00 FiO2 Intake & Output 09/22/23 09/23/23 09/23/23 18:59 06:59 18:59 Other: Voiding Method Toilet Toilet Toilet # Voids 3 2 1 - Exam Left knee: Incision is clean, dry, and intact. The exofin fusion tape is in good condition. There is minimal soft tissue swelling and ecchymosis surrounding the medial and lateral aspects of the incision. Calf is soft, no tenderness with palpation. Plantar flexion, dorsiflexion, EHL, FHL are intact. Sensory exam to light touch throughout the extremity is intact, dorsal pedis pulses 2+. - Labs CBC & Chem 7: 09/21/23 05:53 09/19/23 06:09 Assessment and Plan Assessment: 1. Left knee osteoarthritis - Postoperative day 5 status post left total knee arthroplasty Plan: 1. Left knee osteoarthritis - left total knee arthroplasty performed 09/18/2023. Patient stable at bedside this morning. Continue working with therapy daily. pain Medication as needed. Discharge to rehab Sunday. 2. Appreciate medical management 3. Pain management - [place] 4. DVT prophylaxis - Xarelto 5. GI prophylaxis - senna 6. PT/OT - weightbearing as tolerated with walker 7. Encourage incentive spirometer use 8. Discharge planning - to rehab on Sunday Time with Patient: Less than 30
--- NOTE | 2023-09-23 11:04 | P.PN ---
Subjective Progress Note Date: 09/23/23 Patient is a 78-year-old female with a PMH of HTN, HLDA, h/o DVT, GERD, OA who was admitted for an elective left total knee replacement. Underwent surgery 09/18. [facility] consulted for medical management. 09/19 Patient was seen and examined. She reports lightheadedness when standing up. CBC Hg 10.4 Hct 31.3. BMP GFR 42, Ca 8.6. Mag 1.8. 09/20 Patient was seen and examined. She reports uncontrolled pain in her left knee with ambulation. Feeling nauseated. Lightheadedness has improved, described more like vertigo. She does get vertigo at times which usually self-resolves. PT and OT evaluated, plans for SNF, will need 3 midnight stay. 09/21 Patient was seen and examined. Working a little bit better with PT and OT today. Had one episode of N/V. Does not feel dizzy right now. Reports a history of vertigo, usually relieved with Dramamine. Plans for SNF on Sunday depending on progression. CBC Hg 11. 09/22 Patient was seen and examined. Able to do stairs and take a shower this morning. Nausea but no vomiting. Vertigo improved. 09/23 Patient was seen and examined. In good spirits. Left knee pain better controlled. Feels like mobility is better. No more nausea or vertigo. Plans for SNF vs home depending on PT evaluation tomorrow. General: non toxic, no distress, appears at stated age, normal weight Derm: no unusual rashes/lesions, warm Head: atraumatic, normocephalic, symmetric Eyes: EOMI, no lid lag, anicteric sclera ENT: Nose and ears atraumatic Neck: No cervical lymphadenopathy, trachea midline, supple Cardiovascular: S1S2 reg, no murmur Lungs: CTA bilateral, no rhonchi, no rales, no accessory muscle use Ext: no gross muscle atrophy, no contractures, Neuro: no gross focal neuro deficits Psych: Alert, oriented, appropriate affect Based on my assessment of this patient, this patient meets a moderate complexity level of care. Patient has a chronic diagnosis of HTN, HLDA, h/o DVT, GERD. Vertigo: Meclizine 25 mg PO BID PRN. Zofran 4 mg IV Q6H PRN for N/V. HTN: Amlodipine 5 mg PO QD. HLDA: Lipitor 10 mg PO QD. GERD: Protonix 40 mg PO BID. CODE STATUS: FULL CODE DVT Prophylaxis: Xarelto. GI Prophylaxis: Protonix PO Designated medical POA if patient is not able to make medical decisions for themselves: I have reviewed the following consultant in ergonomics and safety notes: Ortho note. I have reviewed the results of the following tests: I have ordered the following tests: CBC and BMP. I have discussed the care of this patient with the following independent historian: I have independently interpreted the following test below: I have discussed the management of this patient with the following physician: Objective - Vital Signs Vital signs: Vital Signs Temp 97.8 F 09/23/23 08:00 Pulse 72 09/23/23 08:00 Resp 16 09/23/23 08:00 BP 125/79 09/23/23 08:00 Pulse Ox 93 L 09/23/23 08:00 FiO2 Intake & Output 09/22/23 09/23/23 09/23/23 18:59 06:59 18:59 Other: Voiding Method Toilet Toilet Toilet # Voids 3 2 1 - Labs CBC & Chem 7: 09/21/23 05:53 09/19/23 06:09
[2023-09-23] MEDS: CHOLESTYRAMINE (WITH SUGAR) 4 GM PACKET PO SCH (12:55)
[2023-09-23] MEDS: amLODIPine 5 MG TAB PO SCH (17:32)
[2023-09-23] MEDS: SENNOSIDES-DOCUSATE SODIUM 1 EACH TAB PO SCH (20:10)
[2023-09-24] MEDS: HYDROcodone/APAP 7.5-325MG 1 EACH TAB PO PRN ×2 (03:39→09:07)
[2023-09-24] MEDS: LACTATED RINGERS 1,000 ML IV SCH (05:38)
[2023-09-24 06:38] LABS: HCT 32.8 % (34.0-46.0); MCH 31.6 pg (25.0-35.0); MCHC 33.4 g/dL (31.0-37.0); MCV 94.6 fL (80.0-100.0); Mean Platelet Volume 7.8; Platelet Count 291 k/uL (150-450); RBC 3.47 m/uL (3.80-5.40); RDW 13.5 % (11.5-15.5)
[2023-09-24 06:56] LABS: African American GFR (CKD) 57 (>60 ml/min/1.73 sqM); Anion Gap 7 mmol/L; Blood Urea Nitrogen 28 mg/dL (7-17); Calcium 9.1 mg/dL (8.4-10.2); Carbon Dioxide 24 mmol/L (22-30); Chloride 106 mmol/L (98-107); Glucose 101 mg/dL (74-99); Non-African American GFR(CKD) 49 (>60 ml/min/1.73 sqM); Potassium 4.2 mmol/L (3.5-5.1); Sodium 137 mmol/L (137-145)
--- NOTE | 2023-09-24 08:04 | P.DS ---
Providers Date of admission: 09/20/23 09:54 Expected date of discharge: 09/24/23 Attending physician: Arnaldo Canela Consults: 09/18/23 09:32 Consult Physician Routine Consulting Provider: Santiago Bowman Consult Reason/Comments: medical management s/p right total knee arthroplasty Do you want consulting provider notified?: Yes [facility] Course: Date of admission: 09/18/2023 Date of discharge: 09/24/2023 Admission diagnosis: Left knee osteoarthritis Discharge diagnosis: Same Attending physician: Dr. Canela Surgical procedures: Left total knee arthroplasty Brief history: Patient is a 78-year-old female with a history of progressive primary left knee osteoarthritis. At this point patient has failed conservative treatment measures and has opted to proceed with a elective left total knee arthroplasty. Hospital course: Details of patient's surgery can be found in operative report. Patient tolerated the procedure well and was subsequently transported to orthopedic floor. Patient's orthopeidc and medical care was provided daily. Patient had daily laboratory tests performed for evaluation of overall blood counts. Patient had daily physical therapy to include strengthening range of motion as well as education with walker ambulation. Patient was treated with Xarelto for their postoperative DVT prophylaxis during their inpatient stay. Patient was noted to have a relatively uneventful postoperative course. Patient reported satisfactory pain control with oral pain medications by postoperative day 6. Patient showed satisfactory progress with physical therapy. Patient moved steadily through the program and had no difficulty meeting the goals by postoperative day 6. Given patient's otherwise satisfactory course and having met physical therapy goals, plan is to discharge patient to rehab on postoperative day 6. Discharge condition/disposition: Patient will be discharged to rehab in stable condition. Discharge medications: Instructions are given on resumption of patient's normal daily medications per primary care recommendation, in addition patient will be prescribed with [place]; senna; Eliquis. Discharge instructions: 1. Wound care and infection precautions, keep incision dry and covered while showering, no lotions, creams, moisturizers. No soaking, tubs, pools, hottubs. Do not scrub over the incision. 2. Weight-bear as tolerated with walker / cane until follow-up. 3. Ice and elevate when necessary. Do not exceed 20 minutes per hour with ice pack. 4. Utilize compression sleeve until seen at first follow up appointment. 5. Nursing care. 6. Physical therapy. 7. Pain meds and anticoagulants per prescription. 8. Pain medication has potential to cause constipation. Increase oral fluid and fiber intake. Contact primary care provider if you have not had a bowel movement within 48 hours after discharge 9. No anti-inflammatory medication until discussed at first post operative vis it, this including Motrin, Aleve, Mobic, Diclofenac. 10. Follow up in office at 2 weeks postop with Drew Patel PA-C / Danilo Sher PA-C 11. Follow up with your primary care doctor 7-10 days after discharge. 12. Contact [facility] with any questions, . Assessment: Left knee osteoarthritis Procedures: Left total knee arthroplasty Patient Condition at Discharge: Good Plan - Discharge Summary Discharge Rx Participant: Yes New Discharge Prescriptions: New Gabapentin [Neurontin] 200 mg PO HS #12 cap HYDROcodone/APAP 7.5-325MG [[place] 7.5-325] 1 tab PO Q6HR PRN #28 tab PRN Reason: Pain Apixaban [Eliquis] 2.5 mg PO BID #60 tab Sennosides/Docusate Sodium [Senna Plus 8.6-50 mg Softgel] 1 each PO DAILY #20 capsule No Action Cholestyramine/Aspartame [Cholestyramine Light Packet] 4 gm PO DAILY Nabumetone [Relafen] 500 mg PO BID Aspirin 81 mg PO DAILY Lutein 40 mg PO DAILY Ascorbic Acid [Vitamin C] 250 mg PO DAILY Solifenacin Succinate [Vesicare] 10 mg PO DAILY Krill/[place]-3/Dha/Epa/Lipids [Krill Oil 350 mg Softgel] 1 each PO DAILY Gabapentin [Neurontin] 200 mg PO HS PRN PRN Reason: Pain Pyridoxine HCl (Vitamin B6) [Vitamin B-6] 100 mg PO DAILY amLODIPine BESYLATE 5 mg PO W/SUPPER Rosuvastatin Calcium 5 mg PO DAILY Cholecalciferol (Vitamin D3) [Vitamin D3 (125 MCG = 5,000 IU)] 250 mcg PO DAILY Zinc Gluconate [Zinc] 50 mg PO DAILY Discharge Medication List Cholestyramine/Aspartame [Cholestyramine Light Packet] 4 gm PO DAILY 05/14/17 [History] Nabumetone [Relafen] 500 mg PO BID 05/14/17 [History] Aspirin 81 mg PO DAILY 01/07/18 [History] Lutein 40 mg PO DAILY 09/04/19 [History] Ascorbic Acid [Vitamin C] 250 mg PO DAILY 03/03/21 [History] Solifenacin Succinate [Vesicare] 10 mg PO DAILY 09/07/21 [History] Krill/[place]-3/Dha/Epa/Lipids [Krill Oil 350 mg Softgel] 1 each PO DAILY 10/20/21 [History] Rosuvastatin Calcium 5 mg PO DAILY 12/11/22 [History] Cholecalciferol (Vitamin D3) [Vitamin D3 (125 MCG = 5,000 IU)] 250 mcg PO DAILY 09/12/23 [History] Gabapentin [Neurontin] 200 mg PO HS PRN 09/12/23 [History] Pyridoxine HCl (Vitamin B6) [Vitamin B-6] 100 mg PO DAILY 09/12/23 [History] Zinc Gluconate [Zinc] 50 mg PO DAILY 09/12/23 [History] amLODIPine BESYLATE 5 mg PO W/SUPPER 09/12/23 [History] Apixaban [Eliquis] 2.5 mg PO BID #60 tab 09/24/23 [Rx] Gabapentin [Neurontin] 200 mg PO HS #12 cap 09/24/23 [Rx] HYDROcodone/APAP 7.5-325MG [[place] 7.5-325] 1 tab PO Q6HR PRN #28 tab 09/24/23 [Rx] Sennosides/Docusate Sodium [Senna Plus 8.6-50 mg Softgel] 1 each PO DAILY #20 capsule 09/24/23 [Rx] Follow up Appointment(s)/Referral(s): [facility], [NON-STAFF] - 1-2 Days ([facility] will call you to schedule your in home nursing and physical therapy visits. ) Danilo Sher, BHUPENDRA [PHYSICIAN HIM CLERK] - 2 Weeks [facility],Equipment [NON-STAFF] - As Needed (*Please call [facility] once home to arrange delivery of the Continuous Passive Motion (CPM) machine. ) Patient Instructions/Handouts: Knee Replacement (DC), Knee Replacement (GEN) Activity/Diet/Wound Care/Special Instructions: Orthopedic Discharge Instructions: 1. Wound care and infection precautions, keep incision dry and covered while showering, no lotions, creams, moisturizers. No soaking, pools, hot tubs. Do not scrub over incision. 2. Weight-bear as tolerated with walker / cane until follow-up. 3. Ice and elevate when necessary. Do not exceed 20 minutes per hour with ice pack. 4. Utilize compression sleeve until seen at first follow up appointment. 5. Pain meds and anticoagulants per prescription. 6. Pain medication has potential to cause constipation. Increase oral fluid and fiber intake. Contact primary care provider if you have not had a bowel movement within 48 hours after discharge. 7. No anti-inflammatory medication until discussed at first post operative visit, this including Motrin, Aleve, Mobic, Diclofenac. 8. Follow up in office at 2 weeks postop with Drew Patel PA-C / Danilo Sher PA-C 9. Follow up with your primary care doctor 7-10 days after discharge. 10. Contact [facility] with any questions, . Keep incision clean, dry, intact. While showering, cover fusion tape with saran wrap. Keep fusion tape on until follow-up appointment in office in 2 weeks Discharge Disposition: TRANSFER TO SNF/ECF
[2023-09-24 08:05] VITALS: BP 111/72; PULSE 82; RESP 17; TEMP 97.5
[2023-09-24] MEDS: PANTOPRAZOLE 40 MG TABLET PO SCH (08:31)
[2023-09-24] MEDS: ASCORBIC ACID 500 MG TAB PO SCH (08:31)
[2023-09-24] MEDS: TROSPIUM CHLORIDE 20 MG TABLET PO SCH (08:31)
[2023-09-24] MEDS: ATORVASTATIN 10 MG TAB PO SCH (08:31)
[2023-09-24] MEDS: RIVAROXABAN 10 MG TAB PO SCH (08:32)
[2023-09-24] MEDS: ZINC SULFATE 220 MG CAP PO SCH (08:32)
[2023-09-24] MEDS: CHOLECALCIFEROL 125 MCG (5000 IU) TABLET PO SCH (08:32)
[2023-09-24] MEDS: PYRIDOXINE 50 MG TAB PO SCH (08:34)
--- NOTE | 2023-09-24 09:58 | P.PN ---
Subjective Progress Note Date: 09/24/23 Hospital course: Patient is a very pleasant 78-year-old female with a past medical history of hypertension, hyperlipidemia, GERD, osteoarthritis, and previous DVT. She is admitted under orthopedic surgery team status post elective left total knee arthroplasty. Surgical procedure was completed by Dr. Canela on 09/18/23. We have been following as consulted for medical management throughout patient's hospitalization. Physical exam: Patient seen and fully evaluated at bedside this morning. She is postoperative day 6. She reports burning pain to incisional site otherwise denies any complaints or needs this morning. Vital signs reviewed and stable. General: Nontoxic, no distress and appears stated age. Derm: Skin warm and dry, normal coloration for ethnicity. Head: Atraumatic, normocephalic and symmetric. Eyes: EOMs intact, no lid lag, and anicteric sclera Mouth: no lip lesions, mucus membranes moist Cardiovascular: regular rate and rhythm with normal S1S2, no murmur, positive posterior tibial pulses bilaterally, and cap refill < 2 seconds. Lungs: Respirations even, regular, and unlabored on room air. Lungs CTA bilaterally, no rhonchi, no rales, no wheezing, and no accessory muscle usage. Abdominal: soft, nontender to palpation, no guarding, no appreciable organomegaly Ext: ROM intact. No gross muscle atrophy, no edema, no contractures Neuro: Speech clear, face symmetrical and CN II-XII grossly intact with no noted focal neuro deficits Psych: Alert and oriented to person, place, time, and situation. Appropriate and pleasant affect. Assessment and Plan of Care: Acute postoperative blood loss anemia Preoperative hemoglobin 12.3 postoperative hemoglobin is 10.4. This is a stable and expected finding. No need for transfusion or further interventions at this time. Vertigo: Meclizine 25 mg PO BID PRN. Zofran 4 mg IV Q6H PRN for N/V. HTN: Amlodipine 5 mg PO QD. HLDA: Lipitor 10 mg PO QD. GERD: Protonix 40 mg PO BID. Status post left total knee arthroplasty Management per primary admitting orthopedic surgery team including DVT prophylaxis, pain management, wound/dressing management, weightbearing, and PT/OT. DVT Prophylaxis: Xarelto. Data and imaging reviewed Morning labs reviewed and stable. Hemoglobin stable at 11.0. BMP showing slight prerenal azotemia with BUN of 28 and creatinine of 1.08 with GFR 49. Vital signs reviewed and stable. Blood pressure 111/72, heart rate 82, respiratory rate 17, temp 97.5F, and SpO2 is 97% on room air. From a medical perspective, patient is optimized for discharge once cleared by primary admitting orthopedic surgery team. Thank you for allowing us to participate in the care of this pleasant patient. Do not hesitate to contact us with questions. Someone can be reached from the [facility] hospitalist group all hours of the day at [phone] or via [employer]. Patient was seen independently by Nurse Pracitioner. This document was prepared using 2 Minutes dictation software. Please allow for errors in tape calender, while rare they do occur. I reviewed the documentation as provided by the KARY above, who is the original author of this note. I agree with the documented assessment and plan, with the following changes: none Objective - Vital Signs Vital signs: Vital Signs Temp 97.5 F L 09/24/23 07:04 Pulse 82 09/24/23 07:04 Resp 17 09/24/23 07:04 BP 111/72 09/24/23 07:04 Pulse Ox 97 09/24/23 07:04 FiO2 Intake & Output 09/23/23 09/24/23 09/24/23 18:59 06:59 18:59 Other: Voiding Method Toilet Toilet # Voids 3 5 - Labs CBC & Chem 7: 09/24/23 06:08 09/24/23 06:08 Labs: Abnormal Lab Results - Last 24 Hours (Table) 09/24/23 09/24/23 Range/Units 06:08 06:08 RBC 3.47 L (3.80-5.40) m/uL Hgb 11.0 L (11.4-16.0) gm/dL Hct 32.8 L (34.0-46.0) % BUN 28 H (7-17) mg/dL Creatinine 1.08 H (0.52-1.04) mg/dL Glucose 101 H (74-99) mg/dL
[2023-09-24] MEDS: CHOLESTYRAMINE (WITH SUGAR) 4 GM PACKET PO SCH (13:09)
--- NOTE | 2023-09-24 15:06 | P.PN ---
Subjective Progress Note Date: 09/24/23 Principal diagnosis: Left knee osteoarthritis Patient says she is seeing improvement in pain in the knee. She says she is looking forward to going to rehab on Sunday. Patient says she has urinated daily since surgery. Patient is looking forward to working with therapy today. Patient denies chest pain, fever, shortness breath, nausea, vomiting, change in vision, loss of bowel/bladder control. Objective - Vital Signs Vital signs: Vital Signs Temp 97.5 F L 09/24/23 07:04 Pulse 82 09/24/23 07:04 Resp 17 09/24/23 07:04 BP 111/72 09/24/23 07:04 Pulse Ox 97 09/24/23 07:04 FiO2 Intake & Output 09/23/23 09/24/23 09/24/23 18:59 06:59 18:59 Other: Voiding Method Toilet Toilet # Voids 3 5 - Exam Left knee: Incision is clean, dry, and intact. The exofin fusion tape is in good condition. There is minimal soft tissue swelling and ecchymosis surrounding the medial and lateral aspects of the incision. Calf is soft, no tenderness with palpation. Plantar flexion, dorsiflexion, EHL, FHL are intact. Sensory exam to light touch throughout the extremity is intact, dorsal pedis pulses 2+. - Labs CBC & Chem 7: 09/24/23 06:08 09/24/23 06:08 Labs: Abnormal Lab Results - Last 24 Hours (Table) 09/24/23 09/24/23 Range/Units 06:08 06:08 RBC 3.47 L (3.80-5.40) m/uL Hgb 11.0 L (11.4-16.0) gm/dL Hct 32.8 L (34.0-46.0) % BUN 28 H (7-17) mg/dL Creatinine 1.08 H (0.52-1.04) mg/dL Glucose 101 H (74-99) mg/dL Assessment and Plan Assessment: 1. Left knee osteoarthritis - Postoperative day 6 status post left total knee arthroplasty Plan: 1. Left knee osteoarthritis - left total knee arthroplasty performed 09/18/2023. Patient stable at bedside this morning. Continue working with therapy daily. pain Medication as needed. Discharge to rehab today 2. Appreciate medical management 3. Pain management - [place] 4. DVT prophylaxis - Xarelto 5. GI prophylaxis - senna 6. PT/OT - weightbearing as tolerated with walker 7. Encourage incentive spirometer use 8. Discharge planning - to rehab today Time with Patient: Less than 30
== END 2023-09-24 13:54 | DRG 470 ==
LOC: OR 05:50 → 4SSUR 09:29 → OR 09-20 09:54
PROVIDERS: ADMIT Orthopaedic Surgery; ATTEND Orthopaedic Surgery
PROC: 3E0T3BZ Introduction of Anesthetic Agent into Peripheral Nerves and Plexi, Percutaneous Approach (ICD-10-PCS; 2023-09-18)
PROC: 3E0T33Z Introduction of Anti-inflammatory into Peripheral Nerves and Plexi, Percutaneous Approach (ICD-10-PCS; 2023-09-18)
PROC: 0SRD0J9 Replacement of Left Knee Joint with Synthetic Substitute, Cemented, Open Approach (ICD-10-PCS; principal; 2023-09-18 07:30)
DX: M17.12 Unilateral primary osteoarthritis, left knee (principal); D62 Acute posthemorrhagic anemia; I10 Essential (primary) hypertension; M25.762 Osteophyte, left knee; K21.9 Gastro-esophageal reflux disease without esophagitis; E78.5 Hyperlipidemia, unspecified; G89.29 Other chronic pain; M54.30 Sciatica, unspecified side; R42 Dizziness and giddiness; R79.89 Other specified abnormal findings of blood chemistry; R53.83 Other fatigue; U09.9 Post COVID-19 condition, unspecified; Z86.718 Personal history of other venous thrombosis and embolism; Z87.19 Personal history of other diseases of the digestive system; Z87.891 Personal history of nicotine dependence; Z79.82 Long term (current) use of aspirin; Z79.899 Other long term (current) drug therapy; Z79.1 Long term (current) use of non-steroidal anti-inflammatories (NSAID); Z88.2 Allergy status to sulfonamides; Z88.8 Allergy status to other drugs, medicaments and biological substances; Z88.6 Allergy status to analgesic agent
CPT/HCPCS: 64448; 64999; 80048; 83735; 85025; 85027

== ENCOUNTER → 2024-04-01 | Outpatient (CLI) | payer MEDICARE, BC ==
--- NOTE | 2024-04-01 10:38 | XR ---
EXAMINATION TYPE: XR Hip Complete RT DATE OF EXAM: 04/01/2024 10:32 AM CLINICAL INDICATION:Female, 78 years old with history of [id number] RT HIP PAIN; [facility] COMPARISON: 04/24/2016 TECHNIQUE: XR Hip Complete RT; hip was examined in the frontal and lateral projections and a AP pelvi s. FINDINGS: No evidence for acute process, joint dislocation or significant soft tissue swelling. Osteo phyte formation of the superior acetabulum of the hip. There is mild joint space narrowing. Degenerat ion changes of the lower spine. IMPRESSION: 1. No evidence for acute process. 2. Moderate hip osteoarthrosis.
== END | disposition home or self-care (01) ==
LOC: RADXRYALE 10:04
PROVIDERS: ATTEND Family Medicine
DX: M16.11 Unilateral primary osteoarthritis, right hip (principal)
CPT/HCPCS: 73502

== ENCOUNTER → 2024-06-20 | Outpatient (CLI) | payer MEDICARE, BC ==
--- NOTE | 2024-06-20 09:56 | XR ---
EXAMINATION TYPE: XR chest 2V DATE OF EXAM: 06/20/2024 COMPARISON: NONE TECHNIQUE: PA and lateral views submitted. HISTORY: Pain FINDINGS: The lungs are clear and there is no pneumothorax, pleural effusion, or focal pneumonia. Heart size normal and no overt failure. Osseous structures demonstrate hypertrophic and degenerative changes of the spine. Ectasia or aneurysm of the thoracic aorta. Generalized demineralization. IMPRESSION: 1. No acute process. Vertebral ectasia or aneurysm thoracic aorta. [facility], , 06/20/2024 9:53 AM
--- NOTE | 2024-06-20 10:11 | XR ---
EXAMINATION TYPE: XR ribs RT DATE OF EXAM: 06/20/2024 COMPARISON: NONE HISTORY: Pain TECHNIQUE: 4 views right ribs. FINDINGS: Generalized demineralization. Mild widening of the AC joint with hypertrophic changes. Priti elate clinically. Lung brandon clear. Visualized rib cage intact. Surgical clips gallbladder fossa. IMPRESSION: No acute displaced rib fracture. [facility], , 06/20/2024 10:09 AM
== END | disposition home or self-care (01) ==
LOC: RADXRYALE 09:11
PROVIDERS: ATTEND Family Medicine
CPT/HCPCS: 71046

== ENCOUNTER → 2025-01-29 | Outpatient (CLI) | payer MEDICARE, BC ==
--- NOTE | 2025-02-13 13:47 | EST ---
EXERCISE STRESS STUDY PERFORMED: Event monitor. The patient was monitored between January 29 and February 05, 2025. CLINICAL INFORMATION: Baseline rhythm is a sinus mechanism. The average rate 54 beats per minute, minimum 77, maximum 179 beats per minute. Ventricular ectopic activity was present in the form of rare single PVCs. Supraventricular ectopic activity was present in the form of rare single PACs to with short burst of atrial tachycardia with the longest being 12 complexes that was asymptomatic. Symptoms of lightheadedness, chest pain, heart flutter, dizziness correlated with sinus mechanism. MMODL / IJN: [id number] /
== END | disposition home or self-care (01) ==
LOC: RADECHMAIN 13:32
PROVIDERS: ATTEND Family Medicine
DX: I49.3 Ventricular premature depolarization (principal); I47.19 Other supraventricular tachycardia; R53.83 Other fatigue
CPT/HCPCS: 93225

== ENCOUNTER → 2025-02-06 | Outpatient (CLI) | payer MEDICARE, BC ==
--- NOTE | 2025-02-07 23:07 | US ---
EXAMINATION TYPE: US kidneys/renal and bladder DATE OF EXAM: 02/06/2025 COMPARISON: CT A/p 2011. CLINICAL INDICATION: Female, 79 years old with history of R310 GROSS HEMATURIA; 2 episodes of gross h ematuria and left flank pain TECHNIQUE: Grayscale imaging of the bilateral kidneys and urinary bladder: FINDINGS: EXAM MEASUREMENTS: Right Kidney: 10.2x3.7x5.1 cm Left Kidney: 10.0x4.5x4.3 cm Right Kidney: 0.7x0.8x0.7cm cortical cyst superior lateral pole Left Kidney: hydro and proximal hydroureter Bladder: not distended No nephrolithiasis is seen. No suspicious masses are identified. poor visualization of bladder. Unable to visualize cause of obstruction. Exam limited by bowel gas IMPRESSION: Severe left sided hydronephrosis. Suspect obstructing distal left ureter calculus. Advise x-ray or CT follow up. [facility], , 02/07/2025 11:05 PM
== END | disposition home or self-care (01) ==
LOC: RADUSWWP 14:05
PROVIDERS: ATTEND Family Medicine
DX: N30.01 Acute cystitis with hematuria (principal); N13.30 Unspecified hydronephrosis; Z87.442 Personal history of urinary calculi
CPT/HCPCS: 76770

== ENCOUNTER → 2025-02-10 | Outpatient (CLI) | payer MEDICARE, BC ==
--- NOTE | 2025-02-10 16:34 | CT ---
EXAMINATION TYPE: CT abdomen pelvis wo con DATE OF EXAM: 02/10/2025 COMPARISON: 03/08/2012 CLINICAL INDICATION: Female, 79 years old with history of N13.0 HYDRONEPHROSIS WITH URETEROPELVIC PALOMA CTION O; PHH, renal stones, hydronephrosis with UPJ obstruction TECHNIQUE: CT scan of the abdomen and pelvis is performed without oral or IV contrast. CT DLP: [address] CTDI: mGy Automated exposure control for dose reduction was used. FINDINGS: Within the limitations of a non-contrast study, the following observations are made. The lungs are clear. There is surgical absence of the gallbladder. There is no biliary ductal dilatation. There is no organomegaly of the liver, pancreas, spleen or adrenal glands. There are no renal calcifications or hydronephrosis. There is a 13.6 mm exophytic hyperdense cyst of the anterior left kidney and a small 5 mm hyperdense cyst posterior right kidney. The caliber of the abdominal aorta is normal and there is no retroperitoneal adenopathy or hemorrhage . The bowel loops are normal in caliber is no evidence of obstruction. No inflammatory changes are iden tified in the mesentery and there is no free intraperitoneal air or fluid. There are small calcified uterine fibroids.. There is moderate to marked diverticulosis of the colon without CT evidence of diverticulitis. The osseous structures and soft tissues are unremarkable. IMPRESSION: 1. Single hyperdense cysts in each kidney. No hydronephrosis or renal calcification. 2. Small calcified uterine fibroids. 3. Moderate to marked diverticulosis without acute diverticulitis [facility], , 02/10/2025 4:32 PM
== END | disposition home or self-care (01) ==
LOC: RADCTMAIN 15:43
PROVIDERS: ATTEND Family Medicine
DX: N13.2 Hydronephrosis with renal and ureteral calculous obstruction (principal); N13.0 Hydronephrosis with ureteropelvic junction obstruction; D25.9 Leiomyoma of uterus, unspecified; N28.1 Cyst of kidney, acquired; K57.30 Diverticulosis of large intestine without perforation or abscess without bleeding
CPT/HCPCS: 74176

== ENCOUNTER 2025-03-16 10:40 | Emergency (ER) | payer MEDICARE, BC ==
--- NOTE | 2025-03-16 11:04 | ED ---
General Adult HPI - General Chief complaint: Extremity Injury, Lower Stated complaint: L leg pain Time Seen by Provider: 03/16/25 11:04 Source: patient, RN notes reviewed Mode of arrival: ambulatory Limitations: no limitations - History of Present Illness Initial comments: 79-year-old female presented the ER for evaluation of left thigh pain. She states for the past 2 to 3 weeks she has been waking up in the morning with an extreme achy anterior left thigh pain. She reports pain right radiates into her left groin. She states she has taken extra Tylenol with minimal relief of symptoms. She also has been using icy hot. She states she forces herself to get up and walk and after walking throughout the day the pain does subside. Patient denies any known injuries, traumas or falls. Patient does admit to a history of a DVT. She is not currently on any blood thinning medications. She denies any recent travel or smoking. She denies any chest pain or shortness of breath. Patient denies any rashes, wounds or paresthesias. Patient also reports over the past day or 2 she has also noticed an achy pain to her left wrist. It is over her ulnar styloid. She denies any injuries or traumas. Denies any paresthesias to hand. Admits to history of osteoarthritis denies a history of rheumatoid or psoriatic arthritis. Patient denies any fevers or chills. Patient denies any new back pain, bowel or bladder incontinence/retention, saddle paresthesias. - Related Data Home Medications Medication Instructions Recorded Confirmed Cholestyramine/Aspartame 4 gm PO DAILY 05/14/17 09/12/23 [Cholestyramine Light Packet] Nabumetone [Relafen] 500 mg PO BID 05/14/17 09/12/23 Aspirin 81 mg PO DAILY 01/07/18 09/12/23 Lutein 40 mg PO DAILY 09/04/19 09/12/23 Ascorbic Acid [Vitamin C] 250 mg PO DAILY 03/03/21 09/12/23 Solifenacin Succinate [Vesicare] 10 mg PO DAILY 09/07/21 09/12/23 Krill/Arabi-3/Dha/Epa/Lipids 1 each PO DAILY 10/20/21 09/12/23 [Krill Oil 350 mg Softgel] Rosuvastatin Calcium 5 mg PO DAILY 12/11/22 09/12/23 Cholecalciferol (Vitamin D3) 250 mcg PO DAILY 09/12/23 09/12/23 [Vitamin D3 (125 MCG = 5,000 IU)] Gabapentin [Neurontin] 200 mg PO HS PRN 09/12/23 09/12/23 Pyridoxine HCl (Vitamin B6) 100 mg PO DAILY 09/12/23 09/12/23 [Vitamin B-6] Zinc Gluconate [Zinc] 50 mg PO DAILY 09/12/23 09/12/23 amLODIPine BESYLATE 5 mg PO W/SUPPER 09/12/23 09/12/23 Previous Rx's Medication Instructions Recorded Apixaban [Eliquis] 2.5 mg PO BID #60 tab 09/24/23 Gabapentin [Neurontin] 200 mg PO HS #12 cap 09/24/23 HYDROcodone/APAP 7.5-325MG [[place] 1 tab PO Q6HR PRN #28 tab 09/24/23 7.5-325] Magnesium Hydroxide [Milk of 2,400 mg PO DAILY PRN ml 09/24/23 Magnesia] Meclizine [Antivert] 25 mg PO BID PRN tab 09/24/23 Pantoprazole [Protonix] 40 mg PO AC-BID tab 09/24/23 Sennosides/Docusate Sodium [Senna 1 each PO DAILY #20 capsule 09/24/23 Plus 8.6-50 mg Softgel] hydrOXYzine pamoate [Vistaril] 25 mg PO Q4HR PRN cap 09/24/23 Allergies Allergy/AdvReac Type Severity Reaction Status Date / Time quinapril [From Accupril] Allergy Anaphylaxis Verified 03/16/25 10:44 rofecoxib [From Vioxx] Allergy kidneys Verified 03/16/25 10:44 shut down Sulfa (Sulfonamide Allergy Rash/Hives Verified 03/16/25 10:44 Antibiotics) Review of Systems ROS Statement: Those systems with pertinent positive or pertinent negative responses have been documented in the HPI. ROS Other: All systems not noted in ROS Statement are negative. Past Medical History Past Medical History: Deep Vein Thrombosis (DVT), Hyperlipidemia, Hypertension, Musculoskeletal Disorder, Osteoarthritis (OA) Additional Past Medical History / Comment(s): Hx migraines, diverticulitis, IBS & kidney stones. Blood clots to bilateral legs 2017. Back pain with sciatica, had covid in Apr.long haul covid sx,( fatigue, some loss of taste and smell) Elevated BP when at hospital. normal 140/90, not on meds. History of Any Multi-Drug Resistant Organisms: None Reported Past Surgical History: Adenoidectomy, Cholecystectomy, Hernia Repair, Orthopedic Surgery, Tonsillectomy Additional Past Surgical History / Comment(s): Bilateral knee surgery, pain procedures. Cataracts/Lens Implants hernia repair x2 inguinal and ventral incisional. VEIN STRIPPING LEFT LEG - 2019. Vein ablation right leg, ablation of nerves in back. major rt shoulder spur surgery 12/2022 can only lift 2 lbs on the rt. Past Anesthesia/Blood Transfusion Reactions: Previous Problems w/ Anesthesia, Motion Sickness Additional Past Anesthesia/Blood Transfusion Reaction / Comment(s): "Could not wake me up"-only happened once many years ago. Adopted-no family hx. Past Psychological History: No Psychological Hx Reported Smoking Status: Former smoker Past Alcohol Use History: None Reported Past Drug Use History: None Reported - Past Family History Mother Family Medical History: Unable to Obtain Additional Family Medical History / Comment(s): Patient adopted. General Exam Limitations: no limitations General appearance: alert, in no apparent distress Neck exam: Present: normal inspection. Absent: tenderness, meningismus, lymphadenopathy Respiratory exam: Present: normal lung sounds bilaterally. Absent: respiratory distress, wheezes, rales, rhonchi, stridor Cardiovascular Exam: Present: regular rate, normal rhythm, normal heart sounds. Absent: systolic murmur, diastolic murmur, rubs, gallop, clicks Extremities exam: Present: full ROM, normal capillary refill (2+ bilateral DP pulses. 2+ left radial pulse.), other (Negative straight leg roll left. No pain with internal and external rotation of left hip. 4-5+ strength bilateral hip flexion, abduction and adduction) Neurological exam: Present: alert, oriented X3, CN II-XII intact Skin exam: Present: warm, dry, intact, normal color, other (Healed vertical surgical incision left anterior knee). Absent: rash Course Vital Signs 03/16/25 03/16/25 10:41 14:40 Temperature 97.8 F 97.9 F Pulse Rate 94 72 Respiratory 20 18 Rate Blood Pressure 171/89 146/89 O2 Sat by Pulse 97 99 Oximetry Medical Decision Making - Medical Decision Making Was pt. sent in by a medical professional or institution (KATHLEEN Avelar, HANDLE SANDER OPERATOR, urgent care, hospital, or jail...) When possible be specific @ -No Did you speak to anyone other than the patient for history (EMS, parent, family, police, friend...)? What history was obtained from this source @ -No Did you review nursing and triage notes (agree or disagree)? Why? @ -I reviewed and agree with nursing and triage notes Were old charts reviewed (outside hosp., previous admission, EMS record, old EKG, old radiological studies, urgent care reports/EKG's, jail records)? Report findings @ -No old charts were reviewed Differential Diagnosis (chest pain, altered mental status, abdominal pain women, abdominal pain men, vaginal bleeding, weakness, fever, dyspnea, syncope, headache, dizziness, GI bleed, back pain, seizure, CVA, palpatations, mental health, musculoskeletal)? @ -Differential Musculoskeletal: Muscular strain, contusion, ligament sprain, fracture, arthritis, septic arthritis, bursitis, cellulitis, muscle spasm, nerve compression, DVT, arterial occlusion, herpes zoster, electrolyte abnormality, tumor.... This is not meant to be in all inclusive list EKG interpreted by me (3pts min.). @ -None done X-rays interpreted by me (1pt min.). @ -Left femur and AP pelvis x-ray interpreted me negative for acute fractures or dislocations. CT interpreted by me (1pt min.). @ -None done U/S interpreted by me (1pt. min.). @ -Ultrasound venous Doppler left lower extremity negative for acute evidence of DVT. What testing was considered but not performed or refused? (CT, X-rays, U/S, labs)? Why? @ -Patient refused imaging of wrist as her main complaint is left leg. What meds were considered but not given or refused? Why? @ -None Did you discuss the management of the patient with other professionals (professionals i.e. KATHLEEN Avelar, HANDLE SANDER OPERATOR, lab, RT, psych nurse, social studies department chair, outsole compressor, teacher, chief commercial officer, shelter case manager)? Give summary @ -No Was smoking cessation discussed for >3mins.? @ -No Was critical care preformed (if so, how long)? @ -No Were there social determinants of health that impacted care today? How? (Homelessness, low income, unemployed, alcoholism, drug addiction, transportation, low edu. Level, literacy, decrease access to med. care, fci, rehab)? @ -No Was there de-escalation of care discussed even if they declined (Discuss DNR or withdrawal of care, Hospice)? DNR status @ -No What co-morbidities impacted this encounter? (DM, HTN, Smoking, COPD, CAD, Cancer, CVA, ARF, Chemo, Hep., AIDS, mental health diagnosis, sleep apnea, morbid obesity)? @ -HX DVT, HLD, HTN Was patient admitted / discharged? Hospital course, mention meds given and route, prescriptions, significant lab abnormalities, going to OR and other pertinent info. @ -Discharge. 79-year-old female presented to ER for evaluation of left anterior thigh pain x 2 to 3 weeks. Upon arrival vital signs stable patient no signs of distress nontoxic-appearing. Patient is neurovascular intact. There are no overlying skin changes. No red flag back pain symptoms indicative of cauda equina syndrome. Given history of DVTs, ultrasound venous Doppler left lower extremity was obtained and negative for acute evidence of DVT. Left femur and pelvis x-ray interpreted by me negative for acute fractures or dislocations. Patient provided with symptomatic treatment in ER. Upon reevaluation, patient eager for discharge patient refusing imaging of wrist as she states the only reason she is here is for leg pain. Strict return parameters discussed. Patient discharged in stable condition. Advised to follow closely with PCP for reevaluation. Patient verbally expressed understand agree with care plan. Case discussed with ED attending, Dr. White. Undiagnosed new problem with uncertain prognosis? @ -No Drug Therapy requiring intensive monitoring for toxicity (Heparin, Nitro, Insulin, Cardizem)? @ -No Were any procedures done? @ -No Diagnosis/symptom? @ -Leg pain Acute, or Chronic, or Acute on Chronic? @ -Acute Uncomplicated (without systemic symptoms) or Complicated (systemic symptoms)? @ -Uncomplicated Side effects of treatment? @ -No Exacerbation, Progression, or Severe Exacerbation? @ -No Poses a threat to life or bodily function? How? (Chest pain, [place], VA, pneumonia, PE, COPD, DKA, ARF, appy, cholecystitis, CVA, Diverticulitis, Homicidal, Suicidal, threat to staff... and all critical care pts) @ -No - Radiology Data Radiology results: report reviewed, image reviewed Disposition Clinical Impression: Leg pain Disposition: HOME SELF-CARE Condition: Stable Additional Instructions: Follow closely with PCP. I recommend stretching, massage and [id number] i buprofen and Tylenol. Return to the ER for any new or worsening concerns. Is patient prescribed a controlled substance at d/c from ED?: No Referrals: Ismael Lakhani DO [Primary Care Provider] - 1-2 days Time of Disposition: 14:33
--- NOTE | 2025-03-16 12:19 | US ---
EXAMINATION TYPE: US venous doppler duplex LE LT DATE OF EXAM: 03/16/2025 11:38 AM COMPARISON: US 06/07/2017 CLINICAL INDICATION: Female, 79 years old with history of thigh pain; left thigh pain, history of SVT , Pain TECHNIQUE: The lower extremity deep venous system is examined utilizing real time linear array sonog cortney with graded compression, color doppler sonography, and spectral doppler. SIDE PERFORMED: Left FINDINGS: VESSELS IMAGED: Common Femoral Vein Deep Femoral Vein Greater Saphenous Vein * Femoral Vein Popliteal Vein Small Saphenous Vein * Proximal Calf Veins (* superficial vessels) Left Leg: Negative for DVT, Color Doppler imaging shows patency of the vessels. Spectral waveforms a re within normal limits. IMPRESSION: No ultrasound evidence for deep venous thrombosis. [facility], , 03/16/2025 12:16 PM
[2025-03-16] MEDS: ACETAMINOPHEN TAB 325 MG TAB PO STA (12:52)
--- NOTE | 2025-03-16 13:51 | XR ---
EXAMINATION TYPE: XR pelvis AP view, XR femur LT DATE OF EXAM: 03/16/2025 1:19 PM COMPARISON: Left knee radiograph 09/18/2023. CLINICAL INDICATION: Female, 79 years old with history of anterior thight pain; pain [facility] TECHNIQUE: XR pelvis AP view, examined in a single projection. XR left femur, 2 views FINDINGS: Left knee total arthroplasty, periprosthetic lucency about the femoral component unchanged from 2023. Diffuse osseous demineralization which degrades evaluation for nondisplaced fractures, no evide nce of acute displaced fracture or dislocation. No soft tissue abnormality. Multilevel lumbar spondyl osis. Moderate symmetric osteoarthrosis of the hips. Left greater than right degeneration of the sacr oiliac joint. Mild degeneration of the pubic symphysis. IMPRESSION: 1. No acute fracture or dislocation. 2. Unchanged periprosthetic lucency about the left total knee arthroplasty femoral component. [facility], , 03/16/2025 1:49 PM
[2025-03-16 14:41] VITALS: BP 146/89; PULSE 72; RESP 18; TEMP 97.9
== END 2025-03-16 14:41 | disposition home or self-care (01) ==
LOC: EC 10:40
DX: M79.652 Pain in left thigh (principal); E78.5 Hyperlipidemia, unspecified; I10 Essential (primary) hypertension; Z86.718 Personal history of other venous thrombosis and embolism; Z87.891 Personal history of nicotine dependence; Z88.2 Allergy status to sulfonamides; Z88.8 Allergy status to other drugs, medicaments and biological substances
CPT/HCPCS: 72170; 99284